=== PATIENT | female | born 1975 | race Caucasian/White ===

== ENCOUNTER → 2017-11-19 07:22 | Outpatient (CLI) | payer OTHER, SELFPAY ==
--- NOTE | 2017-11-19 07:27 | MRI_ITS ---
STUDY: MRI LEFT KNEE REASON FOR EXAM: Medial knee pain, lateral clicking, symptoms for 6 weeks. TECHNIQUE: Standardized fat and water weighted pulse sequences were obtained in all 3 orthogonal planes. COMPARISON: None. FINDINGS: There is intrasubstance myxoid degeneration of posterior horn of the medial meniscus and a horizontal tear of the inferior articular surface of the posterior horn of the medial meniscus (proton-density sagittal images 12, 13). There is intermediate grade chondromalacia of the medial femoral condyle (T2 sagittal image 8). Normal medial femoral condyle and tibial plateau. There is a mild sprain of the superficial fibers of the medial collateral ligament (T2 coronal images 21, 22). Normal distal semimembranosus, gracilis and semitendinosus tendons. There is a discoid configuration of the lateral meniscus and intrasubstance myxoid degeneration of the posterior horn/body of the lateral meniscus without discrete lateral meniscal tear. Normal hyaline cartilage of the lateral femorotibial compartment. Normal lateral femoral condyle and tibial plateau. Normal proximal tibiofibular articulation. Normal lateral collateral (fibular) ligament. Normal popliteus tendon. Normal biceps femoris tendon. Normal anterior cruciate ligament (ACL). Normal posterior cruciate ligament (PCL). Normal congruent patellofemoral articulation. There is low to intermediate grade chondromalacia of the patellofemoral compartment (T2 sagittal image 14). Normal medial and lateral patellar retinaculum. Normal visualized quadriceps tendon. Normal patellar tendon. Normal Hoffa's fat pad. There is a small joint effusion. There is a thin medial patellar plica. There is mild superficial infrapatellar bursitis (T2 sagittal images 16, 17). There is edema in the anterior subcutis adipose space. The otherwise visualized osseous structures are unremarkable. MRI/Lower Ext Joint Only (Routine) IMPRESSION: Medial meniscal tear. Mild sprain of the medial collateral ligament. 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 Discoid configuration of the lateral meniscus. Small joint effusion. Mild superficial infrapatellar bursitis. Electronically Signed: Rodger Mederos MD at 9:03 EDT Tel , Service support ,
== END ==
PROVIDERS: Family Provider Family Medicine; PCP Family Medicine; Visit Provider Chiropractor
DX: S83.412A Sprain of medial collateral ligament of left knee, initial encounter (principal)
CPT/HCPCS: 73721

== ENCOUNTER 2017-12-25 05:36 | Day surgery (SDC) | payer OTHER, SELFPAY ==
--- NOTE | 2017-12-17 08:27 | PCM.HP.BLA ---
History and Physical DATE OF SURGERY: 12/25/2017 SCHEDULED PROCEDURE: Left knee arthroscopy, partial medial meniscectomy and chondroplasty HISTORY OF PRESENT ILLNESS: This is a 42-year-old female who has had ongoing pain in the left knee for the past 2-3 months. Patient states in September 2017 she slipped on a wet ground injuring her left knee. Patient now complains of popping sensation in the left knee. She has increased pain with walking and going up and down stairs. Activities of daily living are becoming more difficult due to the pain. Pain is over the medial aspect of the joint. Patient has undergone a right knee arthroscopy with medial meniscectomy on December 12, [address] Jack Small. Patient denies previous left knee pain prior to injury. She did undergo an MRI which did reveal a meniscus tear. After discussion with Dr. Jack Small, the patient would like proceed with a left knee arthroscopy with partial medial meniscectomy and chondroplasty. Patient currently denies any chest pain, shortness of breath, fevers chills, recent infections. REVIEW OF SYSTEMS: ROS: Const: Denies anorexia, anxiety, change in appetite, fever, hard of hearing, vision problems and weight change. CV: Denies chest pain, heart murmur, irregular heartbeat and peripheral vascular disease. Resp: Denies asthma, cough, pneumonia, sleep apnea, SOB, tuberculosis and wheezing. GI: Reports constipation, but denies diarrhea, difficulty swallowing, heartburn, nausea, bloody stools and vomiting. : Urinary: reports incontinence at times Musculo: Reports leg swelling, limp(at times), trouble walking(at times) and weakness Skin: Denies Raynaud's, history of shingles and tattoo. Neuro: Denies ambulatory dysfunction, dizziness, numbness/tingling and tremor. Psych: Reports depression, but denies anxiety, insomnia, mental illness and stress. Amol/Lymph: Reports anemia, but denies bleeding/bruising tendency and past transfusion. Reviewed and updated. PAST MEDICAL HISTORY: Advance Care Plan: Other Directive, LIVING WILL Effective Date: 10/23/2016 Other Directive, POA Effective Date: 11/30/2017 PMH: Medical Problems: Ulcers - past Accidents: Fracture - right ankle 1992 Sports Related Injury - shoulder- surgery on the labrum - 1999 Surgical Hx: Tonsillectomy - (1983) Section - (2005) Right Shoulder - (1999) Gallbladder - (2009) RT Knee Arthroscopy - (12/12/2016) [email or web address] Anesthesia Complications: Nausea, Vomiting Assistive Devices: Glasses - contacts Reviewed and updated. 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 Personal Habits: Cigarette Use: Never.Alcohol: Denies use.Drug Use: Denies Use.Enjoy Exercising: Exercises 1-3 X/Week. Reviewed, no changes. VITALS: Ht: 63 Wt: 268lb Wt k.565 BMI: 47.5 BP: 113/78 Pulse: 77 Resp: 20 T: 98.0 T: 36.7C ALLERGIES: No Known Drug Allergy MEDICATIONS: [place] 5-325 mg 1-2 by mouth every 6 hour as needed pain, Multivitamins 1 PO qdAY, Iron (Ferrous Sulfate) 142 (45 Fe) MG one PO daily PRE-OP EXAM: General appearance:NORMAL Other: Eyes: Conjunctivae and lids: NORMAL Pupils: ERR Ears, Nose, Mouth, and Throat: NORMAL Other: Inspection of lips, teeth and gums: NORMAL Other: Neck: Examination of neck: no masses noted. Respiratory: Assessment of respiratory effort: NORMAL Other: Auscultation of lungs: clear to auscultation no wheezes, rhonchi or rales. Cardiovascular: Auscultation of heart: regular rate and rhythm, no murmurs, gallops or rubs. Exam of carotid arteries: NORMAL Other: Gastrointestinal: Exam of abdomen: soft, nontender, nondistended bowel sounds present. PHYSICAL EXAMINATION: Patient walks with a limping gait. Left knee is cool to touch without erythema. She does have mild effusion. There is tenderness to palpation over the medial joint line. No tenderness to palpation over the lateral joint line. Patient does have full range of motion of the left knee with pain on end range of flexion. Patient has a positive Satnam's examination on the left which reproduces her pain. Sensations intact to light touch. Neurovascularly intact. IMAGING STUDIES: 1. X-rays of the left knee reveal mild medial joint space narrowing with overall healthy-appearing knee. No acute findings for fracture. 2. MRI of the left knee does show a posterior horn medial meniscus tear with medial and patellofemoral compartment chondromalacia. IMPRESSION: 1. Left knee posterior medial meniscus tear with chondromalacia of the patellofemoral and medial compartment 2. Right knee osteoarthritis 3. Gastroesophageal reflux PLAN: Dr. Small did discuss and review with the patient all treatment options including surgical versus nonsurgical options. Patient does wish to proceed with the above-stated procedure. Potential risks, benefits, and complications of the procedure were discussed in detail including but not limited to , infection, nerve and blood vessel damage, persistent pain, numbness, tingling, paresthesias, blood clot, pulmonary embolism, and requirement for possible further surgery. The patient expressed full understanding and has no further questions for the doctor. Patient does agree to proceed with the above-stated procedure and has signed the surgery consent form. ___ I have re-examined the patient. There are no clinical changes since date of exam. ___ See progress notes for changes. ___ Dictated on admission Date: Time: Signature:
[2017-12-25] VITALS (10 sets, daily range): BP systolic 109–148; BP diastolic 76–107; PULSE 66–86; RESP 16–18; TEMP 35.9–36.8; O2SAT 93–99; BMI 47.6
[2017-12-25 05:58] LABS: Internal QC Validated? YES +Cl - CLEAR BKGD; Pregnancy, Urine Negative Negative
--- NOTE | 2017-12-25 06:54 | OP.PCM_ITS ---
Report of Operation Date of Procedure: 12/25/17 Pre-Operative Diagnosis: 1. Left knee medial meniscus tear. 2. Left knee chondromalacia. 3. Left knee discoid lateral meniscus, with posterior tearing Post-Operative Diagnosis: 1. Left knee medial plica. 2. Left knee chondromalacia. 3. Left knee discoid lateral meniscus, with posterior tearing Surgery/Procedure Performed:: 1. Left knee arthroscopic medial plica resection. 2. Left knee arthroscopic medial and patellofemoral chondroplasty. 3. 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 Patient was brought back to the operating room where they were transferred to the bed. Anesthesia assumed control of the C-spine airway and administered anesthetic. All bony prominences were identified and well-padded and the R leg was placed in the arthroscopic leg cardona. The contralateral leg was then draped over the bed and well-padded. There was padding underneath both sciatic nerves. The foot of the bed was then dropped and the R leg was prepped in a sterile fashion. The surgeon then scrubbed. Upon reentering the room, the operative leg was draped in a standard orthopedic fashion. A timeout was called, everyone agreed upon the side, the site, the procedure to be performed, patient's identity and antibiotics given. Incisions were marked out for the medial and lateral infrapatellar portals. Esmarch bandage was then used to exsanguinate the leg and tourniquet was placed at 250 mmHg. At this time, the lateral portal incision was made in a vertical fashion. The trocar was placed into the joint. The camera was then placed and the patellofemoral joint was visualized. The patella did appear to have grade 2 -3 chondral changes. The trochlea appeared to have grade 4 chondral changes. We then directed our attention medially where there was a plica, we then directed our attention to the medial gutter where there was no foreign body. Then directed our attention to the medial joint compartment. There were large full-thickness grade 4 chondral changes on the medial distal femur, grade 3 chondral changes on the medial tibial plateau. The medial meniscus had no visible tear. The medial portal was then placed under direct visualization using a spinal needle an 11 blade scalpel. Once this was done a probe was placed in the joint and the meniscus was probed finding no definitive tear at this time based on the chondral damage and plica as well as probing we decided not to proceed with a meniscectomy as one cannot be found. The shaver was then placed in the joint and the areas of severe chondromalacia were cleaned up with the shaver. We then directed our attention to the patellofemoral joint where the medial plica was removed and the patellofemoral joint was shaved using the shaver removing all areas of free cartilage flaps. Once we felt medial medial and patellofemoral were adequately debrided. Attention was then turned towards the notch where the anterior cruciate ligament was intact. PCL was visualized and appeared intact. Attention was then directed towards the lateral compartment where the lateral distal femur had minimal chondral changes, the lateral proximal tibia was not visible due to a large discoid meniscus laterally. The lateral meniscus had small posterior tear in the discoid region. The shaver was placed into the joint and biters were used to sequentially debride the lateral meniscus saucerizing it. We then directed our attention to the lateral gutter, which was visualized and no free bodies were noted. At this time the wound was copiously irrigated out with normal saline with epinephrine. The wound was closed with 4-0 nylon and 0.5% Marcaine and epinephrine were injected for local anesthetic. Xeroform was placed over the incision. Sterile dressing was placed. Compressive dressing was placed. Tourniquet was let down. For that there was then placed up. Patient was awakened by anesthesia patient was transferred to the PACU for recovery in stable condition. Postoperative plan: Patient will be made weight-bear as tolerated. Return to activities as tolerated. He will come to the office in 2 weeks for postoperative wound check and suture removal. If he is doing well that time he can follow-up as needed. - Complications NONE - Admit VTE Documentation VTE Present on Admission: No VTE Mechan Device Prophylaxis: SCD's VTE Pharm Prophylaxis ordered?: Yes
[2017-12-25] MEDS: Cefazolin 2 GM in 0.9% Normal Saline 100 ML IV (07:07)
[2017-12-25] MEDS: Bupiv/Epi 0.5% Mpf 30 ML Vial (08:02)
[2017-12-25] MEDS: Ketorolac 30 MG/ML Syringe IV (08:51)
[2017-12-25] MEDS: proMETHazine 25 MG/ML Syringe IV (08:54)
== END 2017-12-25 11:46 | disposition home or self-care (01) ==
LOC: SDC 05:38 → AC 05:39
PROVIDERS: Anesthesiology; Family Provider Family Medicine; PCP Family Medicine; Visit Provider Specialist
PROC: (CPT 29870; principal; 2017-12-25 06:55)
DX: M94.262 Chondromalacia, left knee (principal); K21.9 Gastro-esophageal reflux disease without esophagitis; M17.11 Unilateral primary osteoarthritis, right knee; M23.222 Derangement of posterior horn of medial meniscus due to old tear or injury, left knee; M67.52 Plica syndrome, left knee; D64.9 Anemia, unspecified
CPT/HCPCS: 01400; 27347; 29875; 81025; J7120; J2405

== ENCOUNTER → 2018-01-10 15:37 | Outpatient (CLI) | payer OTHER, SELFPAY | PROVIDERS: Family Provider Family Medicine; PCP Family Medicine; Visit Provider Specialist | DX: M79.605 Pain in left leg (principal) | CPT/HCPCS: 93971 ==

== ENCOUNTER → 2018-12-03 12:17 | Outpatient (CLI) | payer OTHER, SELFPAY ==
--- NOTE | 2018-12-03 13:00 | MRI_ITS ---
STUDY: MRI RIGHT KNEE REASON FOR EXAM: Female, 43 years old. Right medial knee pain. Status post fall. Previous surgery. TECHNIQUE: Standardized fat and water weighted pulse sequences were obtained in all 3 orthogonal planes. COMPARISON: September 11, 2016. FINDINGS: Grade 3 cartilage loss at the patellar apex. Remainder of the patellofemoral articular cartilage preserved. Lateral compartment articular cartilage preserved. Medial compartment grade 4 cartilage loss. No acute fracture, dislocation or osseous destruction. Mild reactive bone marrow edema/contusion at the medial compartment. Lateral meniscal degeneration without discrete tear. Medial meniscus body/posterior horn free edge tear with marked truncation of the medial meniscal body (sagittal images 16 through 19 series 5 and coronal image 13 series 7). Medial meniscal extrusion. Small volume joint effusion. Slightly thickened medial patellofemoral plica (axial image 14 series 3). No popliteal cyst. Mild anterior soft tissue swelling. Small varicose veins. Normal medial collateral ligamentous complex (MCL). Normal distal semimembranosus, gracilis and semitendinosus tendons. Normal proximal tibiofibular articulation. Normal lateral collateral (fibular) ligament. Normal popliteus tendon. Normal biceps femoris tendon. Normal anterior cruciate ligament (ACL). Normal posterior cruciate ligament (PCL). Normal medial and lateral patellar retinaculum. Normal quadriceps tendon. Normal patellar tendon. Scarring at Hoffa's fat pad. MRI/Lower Ext Joint Only (Routine) IMPRESSION: Partial medial meniscectomy with new extensive free edge fraying/meniscal body truncation Lateral meniscal degeneration without tear Medial compartment severe cartilage loss with reactive bone marrow edema/contusion Patellar apex moderate/severe cartilage loss Small-volume joint effusion, slightly thickened MPF plica and mild anterior soft tissue swelling Electronically Signed: Neri Lozoya DO at 14:58 EDT Tel , Service support ,
== END ==
PROVIDERS: Family Provider Family Medicine; PCP Family Medicine; Referring Provider Chiropractor; Visit Provider Chiropractor
DX: S83.411A Sprain of medial collateral ligament of right knee, initial encounter (principal)
CPT/HCPCS: 73721

== ENCOUNTER → 2022-09-08 | Outpatient (CLI) | payer OTHER, SELFPAY ==
--- NOTE | 2022-09-08 09:40 | EMB_PTH ---
PATIENT: BJ MÉNDEZ LOC: [facility] U#:[id number] AGE/SX: 46/F ROOM: RE09/08/[address]: Dr. Monique Evans MD : [id number] BED: DIS: 09/08/2022 SPEC #: [id number] RECD: 09/08/22 12:19 STATUS: DANIEL REEstelle #: [id number] OLIVA: 09/08/22 09:[address]: Monique Evans DEPT: SURGICAL PATHOLOGY RECD BY: Cata Reyes ENTERED: 09/08/22 12:57 SP TYPE: ENDOM BX/C ELISEO DR: Dr. Gokul Kruger MD Tissues: Endometrium, NOS Procedures: Surgery Specimen Level IV HEADER OPERATION: Endometrial biopsy PRE-OP DIAGNOSIS: Abnormal uterine bleeding TISSUE SUBMITTED: Endometrial tissue MICROSCOPIC DIAGNOSIS Endometrium, biopsy: Mildly disordered, weakly proliferative endometrium. AM:mickey 09/11/2022 MICROSCOPIC DESCRIPTION Slides are reviewed. GROSS DESCRIPTION Received is one container labeled with the patient's name and not further designated. The specimen consists of multiple irregular fragments of pink soft tissue mixed with mucoid tissue that in aggregate measure 2.5 x 0.5 x 0.1 cm. The specimen is totally submitted in one cassette. / SJ:mickey 09/08/2022 TC:5 CPT: 09731
== END | disposition home or self-care (01) ==
PROVIDERS: PCP Family Medicine; Visit Provider Obstetrics & Gynecology
DX: N93.9 Abnormal uterine and vaginal bleeding, unspecified (principal)
CPT/HCPCS: 88305

== ENCOUNTER → 2022-11-10 | Outpatient (CLI) | payer OTHER, SELFPAY ==
--- NOTE | 2022-11-10 09:10 | EKG12_ITS ---
Test Reason : OBESITY Blood Pressure : / mmHG Vent. Rate : 085 BPM Atrial Rate : 085 BPM P-R Int : 140 ms QRS Dur : 076 ms QT Int : 366 ms P-R-T Axes : 038 025 034 degrees QTc Int : 435 ms Normal sinus rhythm Normal ECG Confirmed by WADE GUEVARA, KEVIN ([id number]), index editor MIKE SANCHEZ ([id number]) on 11/13/2022 12:59:15 PM Referred By: EVETTE Confirmed By:KEVIN OLVERA MD
[2022-11-10 10:55] LABS: ALB/GLOB Ratio 0.8 RATIO (0.9-2.4); AST(SGOT) 16 U/L (15-37); Alanine Aminotransfer ALT/SGPT 27 U/L (13-56); Albumin, Serum 3.4 g/dL (3.2-5.0); Alkaline Phosphatase 91 U/L (45-117); Anion Gap 4 (5-15); BUN 10 mg/dL (7-18); BUN/Creat Ratio 14.1 RATIO (10-20); Calcium,Total 8.6 mg/dL (8.5-10.1); Chloride 107 mmol/L (98-107); Cholesterol 270 mg/dL (200); Creatinine, Serum 0.71 mg/dL (0.55-1.02); EST Glomerular Filtration Rate 94 mL/min (>60); Est Glom Filt Rate - Afr Amer 114 mL/min (>60); Glucose 87 mg/dL (74-106); High Density Lipoprotein 73 mg/dL; Potassium 4.1 mmol/L (3.5-5.1); Protein, Total 7.4 g/dL (6.4-8.2); Sodium Level 139 mmol/L (136-145); Thyroid Stim Hormone (TSH) 1.97 uIU/mL (0.358-3.74); Triglycerides 69 mg/dL; Very Low Density Lipoprotein 14 mg/dL (5-40)
[2022-11-10 11:14] LABS: Absolute Lymphocyte Count 1.27 X10^3/uL (0.83-4.51); Absolute Neutrophil Count 4.3 X10^3/uL (2.0-7.7); Basophil# 0.05 X10^3/uL; Basophil% 0.8 % (0-1); Eosinophil# 0.17 X10^3/uL; Eosinophils% 2.7 % (0-5); Hematocrit 42.4 % (37-47); Hemoglobin 13.7 g/dL (12.0-15.0); Lymphocyte # 1.27 X10^3/ul (0.83-4.51); Lymphocyte % 19.9 % (19-41); Mean Corp Hgb Conc 32.3 g/dL (32-36); Mean Corpuscular Hgb 29.7 pg (27.0-32.0); Mean Platelet Vol. 10.5 fl (6.2-12.0); Monocyte# 0.53 X10^3/uL; Monocyte% 8.3 % (0-10); NRBC Flagged by Analyzer 0 % (0-5); Neutrophil # 4.34 X10^3/uL (2.7-7.7); Neutrophil % 68.1 % (47-70); Platelet Count 342 K/mm3 (150-450); RBC Distribution Width CV 12.7 % (11.6-14.6); Red Blood Count 4.61 M/mm3 (4.2-5.4); White Blood Count 6.4 K/mm3 (4.4-11.0)
[2022-11-10 12:39] LABS: Hemoglobin A1c 5.3 % (3.8-5.6)
[2022-11-14 15:07] LABS: Vitamin D 1,25-Dihydroxy 33.4 pg/mL (24.8-81.5)
== END | disposition home or self-care (01) ==
PROVIDERS: PCP Family Medicine; Visit Provider Obstetrics & Gynecology
DX: E66.8 Other obesity (principal); Z68.43 Body mass index [BMI] 50.0-59.9, adult
CPT/HCPCS: 36415; 80053; 80061; 82652; 83036; 84443; 85025; 93005

== ENCOUNTER 2022-11-27 09:58 | Outpatient (RCR) | payer OTHER, SELFPAY | END 2022-12-11 23:59 | LOC: NS 09:58 | PROVIDERS: PCP Family Medicine; Referring Provider Obstetrics & Gynecology; Visit Provider Obstetrics & Gynecology | DX: Z71.3 Dietary counseling and surveillance (principal); E66.01 Morbid (severe) obesity due to excess calories; E66.8 Other obesity; Z68.43 Body mass index [BMI] 50.0-59.9, adult | CPT/HCPCS: 97802 ==

== ENCOUNTER → 2022-12-26 | Outpatient (CLI) | payer OTHER, SELFPAY | END | disposition home or self-care (01) | PROVIDERS: PCP Family Medicine; Referring Provider Nurse Practitioner Acute Care; Visit Provider Nurse Practitioner Acute Care | DX: G47.10 Hypersomnia, unspecified (principal) | CPT/HCPCS: 95806 ==

== ENCOUNTER 2023-01-10 16:00 | Outpatient (RCR) | payer OTHER, SELFPAY | END 2023-01-11 23:59 | LOC: NS 16:00 | PROVIDERS: PCP Family Medicine; Referring Provider Obstetrics & Gynecology; Visit Provider Obstetrics & Gynecology | DX: Z71.3 Dietary counseling and surveillance (principal); E66.01 Morbid (severe) obesity due to excess calories; Z68.43 Body mass index [BMI] 50.0-59.9, adult; E66.8 Other obesity | CPT/HCPCS: 97803 ==

== ENCOUNTER 2023-02-07 15:28 | Outpatient (RCR) | payer OTHER, SELFPAY | END 2023-02-10 23:59 | LOC: NS 15:28 | PROVIDERS: PCP Family Medicine; Referring Provider Obstetrics & Gynecology; Visit Provider Obstetrics & Gynecology | DX: Z71.3 Dietary counseling and surveillance (principal); E66.01 Morbid (severe) obesity due to excess calories; Z68.43 Body mass index [BMI] 50.0-59.9, adult | CPT/HCPCS: 97803 ==

== ENCOUNTER → 2023-07-30 | Outpatient (CLI) | payer OTHER, SELFPAY ==
[2023-07-30 11:24] LABS: ALB/GLOB Ratio 0.9 RATIO (0.9-2.4); AST(SGOT) 17 U/L (15-37); Alanine Aminotransfer ALT/SGPT 22 U/L (13-56); Albumin, Serum 3.4 g/dL (3.2-5.0); Alkaline Phosphatase 97 U/L (45-117); Anion Gap 4 (5-15); BUN 17 mg/dL (7-18); BUN/Creat Ratio 22.3 RATIO (10-20); Calcium,Total 8.7 mg/dL (8.5-10.1); Chloride 111 mmol/L (98-107); Cholesterol 172 mg/dL (200); Creatinine, Serum 0.76 mg/dL (0.55-1.02); EST Glomerular Filtration Rate 86 mL/min (>60); Est Glom Filt Rate - Afr Amer 105 mL/min (>60); Globulin 3.6 g/dL (2.2-4.2); Glucose 93 mg/dL (74-106); High Density Lipoprotein 62 mg/dL; Potassium 4.1 mmol/L (3.5-5.1); Sodium Level 141 mmol/L (136-145); Triglycerides 72 mg/dL; Very Low Density Lipoprotein 14 mg/dL (5-40)
== END | disposition home or self-care (01) ==
LOC: MFPLAB 08:04
PROVIDERS: PCP Family Medicine; Visit Provider Family Medicine
DX: E78.5 Hyperlipidemia, unspecified (principal)
CPT/HCPCS: 36415; 80053; 80061

== ENCOUNTER → 2024-02-04 | Outpatient (CLI) | payer OTHER, SELFPAY ==
--- NOTE | 2024-02-04 07:02 | EKG12_ITS ---
Test Reason : TACHYCARDIA Blood Pressure : / mmHG Vent. Rate : 085 BPM Atrial Rate : 085 BPM P-R Int : 140 ms QRS Dur : 076 ms QT Int : 366 ms P-R-T Axes : 038 032 041 degrees QTc Int : 435 ms Normal sinus rhythm Normal ECG Confirmed by Laci Thomson ([id number]), makeup editor GLORY CHAVEZ ([id number]) on 02/04/2024 1:24:47 PM Referred By: Loreta Salazar Confirmed By:Laci Thomson
== END | disposition home or self-care (01) ==
PROVIDERS: PCP Family Medicine; Referring Provider Nurse Practitioner Family; Visit Provider Nurse Practitioner Family
DX: R00.0 Tachycardia, unspecified (principal)
CPT/HCPCS: 93005

== ENCOUNTER → 2024-08-13 | Outpatient (CLI) | payer OTHER, SELFPAY | END | disposition home or self-care (01) | PROVIDERS: PCP Family Medicine; Referring Provider Internal Medicine Cardiovascular Disease; Visit Provider Internal Medicine Cardiovascular Disease | DX: R00.0 Tachycardia, unspecified (principal) | CPT/HCPCS: 36415; 84443 ==

== ENCOUNTER → 2024-09-15 | Outpatient (CLI) | payer OTHER, SELFPAY ==
--- NOTE | 2024-09-15 06:23 | ECHOD_ITS ---
Reason For Study Reason For Study: DYSPNEA Procedure This was a 2D Doppler, Color Flow transthoracic echocardiogram. Exam performed in department. Left Ventricle Normal LV size. Mild concentric left ventricular hypertrophy. The LV systolic function is normal. EF is 65 %. Stage 1 diastolic dysfunction. Right Ventricle Normal right ventricle. Atria The left atrium is mildly enlarged. Normal right atrium. Mitral Valve Trivial mitral valve insufficiency. Tricuspid Valve Trivial tricuspid valve insufficiency. Unable to estimate RV systolic pressure due to insufficient tricuspid regurgitant envelope. Aortic Valve Trisinus/trileaflet aortic valve. Pulmonic Valve The pulmonic valve is not well visualized. Great Vessels Normal sized aortic root. Pericardium/Pleural No pericardial effusion. MMode/2D Measurements & Calculations LVIDd: 3.9 cm IVSd: 1.3 cm LVOT diam: 2.1 cm LVIDs: 3.1 cm LVPWd: 1.5 cm LVOT area: 3.3 cm2 FS: 22.2 % LAV(MOD-bp): 59.0 ml LVAd ap4: 29.0 cm2 SV(MOD-sp4): 56.0 ml LAV(MOD-bp) Indexed: 26.6 ml/m2 LVLd ap4: 7.5 cm SI(MOD-sp4): 25.2 ml/m2 LAV(MOD-sp2): 58.2 ml EDV(MOD-sp4): 93.1 ml LAV(MOD-sp4): 51.5 ml EDV(sp4-el): 94.7 ml LVAs ap4: 16.3 cm2 LVLs ap4: 5.9 cm ESV(MOD-sp4): 37.2 ml ESV(sp4-el): 38.5 ml EF(MOD-sp4): 60.1 % EF(sp4-el): 59.4 % SV(sp4-el): 56.2 ml LA A4 area: 17.6 cm2 LA dimension(2D): 4.4 cm RA A4 area: 13.6 cm2 Time Measurements MV dec time: 0.09 sec Doppler Measurements & Calculations MV E max carlos: 86.4 cm/sec Lat Peak E' Carlos: 8.6 cm/sec Med Peak E' Carlos: 7.7 cm/sec MV A max carlos: 113.9 cm/sec E/E' lat: 10.0 E/E' med: 11.2 MV E/A: 0.76 MV V2 max: 120.6 cm/sec Ao V2 max: 157.8 cm/sec MV max P.8 mmHg MV dec slope: 947.8 cm/sec2 Ao max P.0 mmHg MV V2 mean: 84.9 cm/sec Ao V2 mean: 111.7 cm/sec MV mean P.2 mmHg Ao mean P.6 mmHg MV V2 VTI: 27.1 cm Ao V2 VTI: 32.0 cm AV (velocity ratio): 0.92 MVA(VTI): 3.6 cm2 SO(I,D): 3.0 cm2 SO(V,D): 2.8 cm2 LV V1 max: 135.5 cm/sec SV(LVOT): 97.1 ml PA V2 max: 100.5 cm/sec LV V1 max P.4 mmHg PA V2 mean: 76.3 cm/sec LV V1 mean P.6 mmHg LV V1 mean: 102.4 cm/sec LV V1 VTI: 29.3 cm ECHO/Echo Complete Interpretation Summary Mild concentric left ventricular hypertrophy. The LV systolic function is normal. EF is 65 %. Stage 1 diastolic dysfunction. The left atrium is mildly enlarged. Ordering Physician: Sienna James Referring Physician: Jose Echeverria Performed By: Aisha Piña RCS
--- NOTE | 2024-09-15 09:16 | STRESSREP_ITS ---
Stress Test Report Date: 09/15/2024 Procedure: Exercise tolerance test/imaging study Indications: Tachycardia Consent: Per the patient Procedure: The patient exercised on a Milind protocol for 6 minutes and 27 seconds achieving a peak heart rate of 117 bpm (103% predicted maximal heart rate) with a peak blood pressure 172/84 mmHg and a peak MET capacity of 8.3 METs. The baseline ECG demonstrated normal sinus rhythm. The peak exercise ECG demonstrated sinus tachycardia with no ischemic changes. There were no cardiac dysrhythmias pretest, during exercise, or recovery. The functional capacity was considered average. There was no complaint of chest discomfort during exercise or recovery. The examination was discontinued secondary to target heart rate being achieved and dyspnea. The patient was injected with 14.6 mCi of technetium 99m Cardiolite and subsequently rest SPECT Cardiolite nuclear imaging was obtained in the horizontal long, vertical long, and short axis views. Post-exercise, the patient was injected with 44.7 mCi of technetium 99m Cardiolite and subsequently stress SPECT Cardiolite nuclear imaging was obtained in the horizontal long, vertical long, and short axis views. A gated Cardiolite study at peak stress was obtained. Rest and stress SPECT Cardiolite nuclear imaging status post realignment, normalization, and attenuation correction, demonstrates the appearance of relative uniform tracer uptake and myocardial perfusion appearing within normal limits. There is end systolic thickening and brightening. The gated Cardiolite study demonstrates myocardial thickening and inward wall motion. The reported LVEF is 72%. Impression: 1. Technically adequate (percent predicted maximal heart rate greater than 85%) exercise tolerance test 2. Peak exercise ECG with no ischemic changes 3. There were no cardiac dysrhythmias pretest, during exercise, or recovery 4. Rest and stress SPECT Cardiolite nuclear imaging demonstrate relative uniform tracer uptake and myocardial perfusion appearing within normal limits. 5. The gated Cardiolite study reports an LVEF of 72%. This note was generated with CartoDBation software. It may contain incorrect words, spelling, and punctuation that were not noted in checking the note before signing.
== END | disposition home or self-care (01) ==
LOC: CVS 06:21
PROVIDERS: PCP Family Medicine; Referring Provider Family Medicine; Visit Provider Internal Medicine Cardiovascular Disease
DX: R00.0 Tachycardia, unspecified (principal); R06.09 Other forms of dyspnea
CPT/HCPCS: 78452; 93017; 93306; A9500; A4216

== ENCOUNTER → 2024-10-17 | Outpatient (CLI) | payer OTHER, SELFPAY ==
[2024-10-17 18:10] LABS: Anion Gap 10 (5-15); BUN 17 mg/dL (4-19); BUN/Creat Ratio 24.3 RATIO (10-20); Carbon Dioxide 23.8 mmol/L (21.0-32.0); Chloride 105 mmol/L (98-108); Creatinine, Serum 0.68 mg/dL (0.70-1.20); EST Glomerular Filtration Rate 108 (>60); Glucose 81 mg/dL (70-99); Potassium 3.9 mmol/L (3.3-5.1); Sodium Level 139 mmol/L (133-145)
[2024-10-17 18:39] LABS: Hemoglobin A1c 5.5 % (<=5.6)
== END | disposition home or self-care (01) ==
LOC: MFPLAB 14:04
PROVIDERS: PCP Family Medicine; Referring Provider Family Medicine; Visit Provider Family Medicine
DX: R63.1 Polydipsia (principal)
CPT/HCPCS: 36415; 80048; 83036

== ENCOUNTER → 2024-10-27 | Outpatient (CLI) | payer OTHER, SELFPAY | END | disposition home or self-care (01) | LOC: PSN 07:24 | PROVIDERS: PCP Family Medicine; Referring Provider Nurse Practitioner Family; Visit Provider Nurse Practitioner Family | DX: I48.91 Unspecified atrial fibrillation (principal); R00.0 Tachycardia, unspecified; R00.1 Bradycardia, unspecified; R42 Dizziness and giddiness | CPT/HCPCS: 93225; 93226 ==

== ENCOUNTER 2025-03-06 09:09 | Emergency (ER) | payer OTHER, SELFPAY ==
[2025-03-06 09:09] VITALS: BP 142/98; PULSE 104; RESP 18; TEMP 36.8; O2SAT 98; BMI 46.5
--- NOTE | 2025-03-06 09:35 | EKG12_ITS ---
Test Reason : CP Blood Pressure : */* mmHG Vent. Rate : 92 BPM Atrial Rate : 92 BPM P-R Int : 138 ms QRS Dur : 76 ms QT Int : 354 ms P-R-T Axes : 46 21 29 degrees QTcB Int : 437 ms Normal sinus rhythm Normal ECG Confirmed by JULIANN RAZO ([id number]), news copy editor MIKE SANCHEZ ([id number]) on 03/09/2025 6:56:25 AM Referred By: ER/DH Confirmed By: JULIANN RAZO
--- NOTE | 2025-03-06 09:36 | ED.VIS.CHEST ---
HPI History of Present Illness Chief Complaint: Chest Pain Informant: patient and spouse/S.O. Narrative Narrative: 49-year-old female presenting to the emergency room with a chief complaint of chest pressure and sensation of heart racing. Patient states that she went to the chiropractor around 615 this morning. She had electric stimulation and manipulation. States that around [address] her [address] into work when she got a chest pressure-like sensation that radiate up towards her jaw and a sensation that her heart was racing. 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 BP systolic around 140/100 and HR of 110. She states that she felt that it was harder to take a breath. Her symptoms have improved but still feels like her breathing is a bit labored. She denies any new medications. She states that she is not treated for hypertension. She does not monitor her blood pressure or heart rate at home. She notes over the past week her legs have been a little bit more swollen than normal and she feels that she is urinating more frequently than normal. She states she does not have a history of sleep apnea. She states that she had a stress test in the spring that she passed. [facility] Medical History Diastolic blood pressure 90 mm Hg or higher BMI 45.0-49.9, adult Hyperlipemia Tachycardia Home Medications ?Medication ?Instructions ?Recorded ?Last Taken ?Type fluoxetine 40 mg capsule 40 mg PO QDAY 08/13/24 Unknown History phentermine 37.5 mg tablet 18.75 mg (1/2 x 37.5 mg) PO QDAY 02/27/25 Unknown Rx (Adipex-P) #16 tabs Allergy/AdvReac Type Severity Reaction Status Date / Time No Known Allergies Allergy Verified 03/06/25 09:09 Family History Grandmother , age 31 Cancer Surgical History S/P S/P knee surgery S/P tonsillectomy S/P cholecystectomy S/P shoulder surgery Social History number of children: 3 current occupational status: employed 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[employer] Smoking Status: Never smoker alcohol intake: never substance use type: does not use seatbelt use: always do you feel safe at home: Yes additional social history: - [employer]- [employer] ED Constitutional Constitutional ED: Denies chills, fever(s) or weight loss Eyes Eyes: Denies change in vision or diplopia ENT ENT ED: Denies ear pain, rhinorrhea or sore throat Cardiovascular Cardiovascular: Reports chest pain and racing heartbeat; Denies orthopnea or palpitations Respiratory/Chest Respiratory/Chest: Reports dyspnea; Denies cough or orthopnea Gastrointestinal Gastrointestinal: Denies abdominal pain, diarrhea, nausea or vomiting Genitourinary Genitourinary ED: Reports urinary frequency; Denies dysuria or hematuria Musculoskeletal Musculoskeletal: Reports other Details: Mild leg swelling ; Denies arthralgias or myalgias Integumentary Denies abscess or rash Neurologic Neurologic: Denies headache(s) or weakness Psychiatric Psychiatric: Denies anxiety, depression, suicidal ideation or suicidal thoughts Endocrine Endocrinology: Denies polydipsia, polyphagia or polyuria Allergic/Immunologic Allergic/Immunologic ED: Denies mouth swelling, tongue swelling or urticaria EXAM Physical Exam Const Vital Signs: 03/06/25 09:09 03/06/25 10:09 03/06/25 11:00 Temperature 98.3 F Temperature Source Oral Pulse Rate 104 H 87 86 Respiratory Rate 18 18 16 Blood Pressure 142/98 H 151/78 H 148/74 H Blood Pressure Mean 112 102 98 Pulse Ox 98 98 99 Oxygen Delivery Method Room Air 03/06/25 12:00 Temperature Temperature Source Pulse Rate 80 Respiratory Rate 16 Blood Pressure 140/68 H Blood Pressure Mean 92 Pulse Ox 99 Oxygen Delivery Method Positive well nourished and well developed General Appearance ED: well developed and NAD HEENT Reports normocephalic, head/scalp atraumatic and moist mucous membranes Eyes PERRL and EOMs intact bilaterally Neck no lymphadenopathy, supple and no JVD Resp normal respiratory effort and clear to auscultation bilaterally Resp Narrative: breathing appears unlabored Cardio regular rate, regular rhythm and no murmurs GI normal to inspection, nondistended, normoactive bowel sounds and non-tender Palpation: soft Back/Spine no CVA tenderness and normal ROM Extremity normal to inspection General Extremety ED: Negative for edema General Extremity: Negative for edema Neuro oriented x3 and CN's II-XII intact bilaterally Sensorium / Orientation: alert Motor Exam: strength 5/5 throughout Psych mental status grossly normal Mood & Affect: Negative for depressed or tearful Skin no rashes or lesions noted and no wounds MDM MDM MDM Narrative Medical decision making narrative: Differential diagnosis includes but not limited to acute coronary syndrome pulmonary embolism aortic dissection and aneurysm pleural effusion cardiac dysrhythmia electrolyte abnormalities anemia UTI My independent interpretation of the chest x-ray is no acute process. Basic blood work was obtained shows 2 cardiac enzymes that are negative at 7. Hemoglobin 13.3. D-dimer is elevated 0.73 however the CTA of her chest was negative. She had no events on the monitor. A urinalysis was obtained which is also negative for infection. At this point I feel the patient can be discharged home. Have her follow-up with primary care return if worsening or concerns History & Record Review Discussion w/independent historian: Patient and Significant other Additional record(s) reviewed:: Prior outpatient record Lab Data Attestation: I reviewed the patient's lab results. Labs: Laboratory Results - last 24 hr 03/06/25 03/06/25 03/06/25 09:20 10:30 11:25 WBC 7.2 RBC 4.39 Hgb 13.3 Hct 39.8 MCV 90.7 MCH 30.3 MCHC 33.4 RDW Std Deviation 41.6 RDW Coeff of Nya 12.7 Plt Count 304 MPV 10.2 Immature Gran % (Auto) 0.300 Neut % (Auto) 67.3 Lymph % (Auto) 18.7 L [place] % (Auto) 10.8 H Eos % (Auto) 2.2 Baso % (Auto) 0.7 Absolute Neuts (auto) 4.8 Absolute Lymphs (auto) 1.34 Nucleated RBC % 0 D-Dimer Quant (PE/DVT) 0.73 H* Sodium 139 Potassium 3.8 Chloride 104 Carbon Dioxide 25.9 Anion Gap 10 BUN 13 Creatinine 0.62 L Estim Creat Clear Calc 149.48 Est GFR (MDRD) Non-Af 110 BUN/Creatinine Ratio 20.7 H Glucose 86 Calcium 8.9 Magnesium 2.0 Troponin T High Sens 7 Troponin T Hi Sens 2 Hr 7 Urine Color Yellow Urine Clarity Sl. Cloudy Urine pH 6.0 Ur Specific [place] 1.020 Urine Protein 30 H Urine Glucose (UA) Normal Urine Ketones Negative Urine Occult Blood Negative Urine Nitrite Negative Urine Bilirubin Negative Urine Urobilinogen Normal Ur Leukocyte Esterase 25 H Urine RBC 0 SEEN Urine WBC 0-5 SEEN Ur Squamous Epith Cells 5-10 SEEN Urine Bacteria 0 SEEN Urine Mucus 0 SEEN Radiography Diagnostic Testing: Clinical Impression(s) from Imaging Studies Chest X-Ray 03/06/25 09:50 IMPRESSION: Right lower lobe opacity likely subsegmental atelectasis. No definite focal consolidations. Reading Location: [facility] Chest CTA 03/06/25 10:30 IMPRESSION: No evidence of acute chest abnormalities. No evidence of pulmonary embolism. Reading Location: [facility] EKG Initial EKG: Attestation: I personally reviewed and interpreted this EKG as follows: Comments: Normal sinus rhythm ventricular rate of 92 bpm. I do not appreciate concerning ST segments. Discharge Plan Triage Chief Complaint: Chest Pain ED Provider: Isauro Zarco Dx/Rx/DC Orders Prescriptions: No Action fluoxetine 40 mg capsule 40 mg PO QDAY phentermine [Adipex-P] 37.5 mg tablet 18.75 mg PO QDAY Qty: 16 0RF Rx Instructions: BMI 45 Primary Care Provider: Jv Cortes Referrals: Jose Echeverria MD [Med Staff - Active Staff, Family Practice] Print Language: Kinyarwanda
[2025-03-06 09:44] LABS: Hematocrit 39.8 % (37-47); Hemoglobin 13.3 g/dL (12.0-15.0); Immature Granulocytes Count 0.020 X10^3/uL (0.0-0.0); Mean Corp Hgb Conc 33.4 g/dL (32-36); Mean Corpuscular Volume 90.7 fL (81-99); Mean Platelet Vol. 10.2 fl (6.2-12.0); NRBC Flagged by Analyzer 0 % (0-5); Platelet Count 304 K/mm3 (150-450); RBC Distribution Width CV 12.7 % (11.6-14.6); RBC Distribution Width SD 41.6 fl (35.1-43.9); Red Blood Count 4.39 M/mm3 (4.2-5.4); White Blood Count 7.2 K/mm3 (4.4-11.0)
--- NOTE | 2025-03-06 09:50 | RAD_ITS ---
PROCEDURE: CHEST 1 VIEW (PORTABLE) 03/06/2025 REASON FOR EXAM: CHEST PAIN TECHNIQUE: Frontal view of the chest. FINDINGS: Right lower lobe opacity likely subsegmental atelectasis. No definite focal consolidations. No pleural effusion or pneumothorax. Cardiac silhouette is within normal limits. No acute fractures. RAD/Chest 1 View (Portable) IMPRESSION: Right lower lobe opacity likely subsegmental atelectasis. No definite focal co nsolidations. Reading Location: [id number]
[2025-03-06 10:01] LABS: D-Dimer Quantitative (DVT/PE) 0.73 FEU/ug/m (0.27-0.49)
[2025-03-06 10:09] VITALS: BP 151/78; PULSE 87; RESP 18; O2SAT 98
[2025-03-06 10:25] LABS: Anion Gap 10 (5-15); BUN 13 mg/dL (4-19); BUN/Creat Ratio 20.7 RATIO (10-20); Calcium,Total 8.9 mg/dL (7.6-11.0); Carbon Dioxide 25.9 mmol/L (21.0-32.0); Chloride 104 mmol/L (98-108); Estimated Creatinine Clearance 149.48 ml/min (50-250); Glucose 86 mg/dL (70-99); Magnesium 2.0 mg/dL (1.5-2.2); Potassium 3.8 mmol/L (3.3-5.1); Troponin T High Sensitivity 7 ng/L (<=14)
--- NOTE | 2025-03-06 10:30 | CT_ITS ---
PROCEDURE: CTA CHEST W/WO CONTRAST 03/06/2025 REASON FOR EXAM: CHEST PAIN SOB ELEVATED DDIMER TECHNIQUE: Procedure Code: [id number] Modality: CT Procedure: CTA CHEST W/WO CONTRAST Multiplanar Sagittal and Coronal images were obtained. CONTRAST: Isovue 370 VOLUME: 96 mL One or more dose reduction techniques were used (e.g., Automated exposure control, adjustment of the mA and/or kV according to patient size, use of iterative reconstruction technique). RADIATION DOSE SUMMARY: CTDlvol: 15.83 mGy DLP: 517.98 mGycm COMPARISON: None. # of known CTs in the past 12 months: 0. # of known Cardiac Nuclear Medicine Studies in the past 12 months: 0. FINDINGS: Thoracic Aorta: No aneurysm. No dissection. Heart: No cardiomegaly. Pulmonary Vessels: No evidence of pulmonary embolism. Hardware: None. Lymph nodes: No lymphadenopathy. Lungs and Airways: Clear. Pleura: No pleural effusion or pneumothorax. Upper Abdomen: Unremarkable. Bones: No acute bony abnormalities. CT/CTA Chest W/WO Contrast IMPRESSION: No evidence of acute chest abnormalities. No evidence of pulmonary embolism. Reading Location: [facility]
[2025-03-06 10:32] LABS: Mucous, Urine 0 SEEN /hpf (<or=2+); Red Blood Cells-Urine 0 SEEN /hpf (0-5)
[2025-03-06 10:43] LABS: Color, Urine Yellow (Yellow); Glucose, Dipstick Normal (Normal); Ketone-Dipstick Negative (Negative); Leukocyte Esterase-Dipstick 25 /ul (Negative); Nitrite-Dipstick Negative (Negative); Occult Blood-Urine Negative /ul (Negative); Protein-Dipstick 30 mg/dl (Negative); Specific Gravity, Urine 1.020 (1.002-1.030); Urine Bilirubin Dipstick Negative (Negative)
[2025-03-06 10:51] LABS: Squamous Epithelial Cells - UA 5-10 SEEN /hpf (5-10)
[2025-03-06 11:00] VITALS: BP 148/74; PULSE 86; RESP 16; O2SAT 99
[2025-03-06 12:00] VITALS: BP 140/68; PULSE 80; RESP 16; O2SAT 99
[2025-03-06 12:22] LABS: Troponin T High Sens 2 HR 7 ng/L (<=14)
[2025-03-06 12:46] VITALS: BP 126/83; PULSE 82; RESP 16; TEMP 36.6; O2SAT 99
== END 2025-03-06 12:53 | disposition home or self-care (01) ==
PROVIDERS: Emergency Provider Emergency Medicine; PCP Family Medicine; Visit Provider Emergency Medicine
DX: R07.9 Chest pain, unspecified (principal); E78.5 Hyperlipidemia, unspecified; R06.00 Dyspnea, unspecified; R35.0 Frequency of micturition
CPT/HCPCS: 71045; 71275; 80048; 81001; 83735; 84484; 85025; 85379; 93005; 99284; Q9967; A4216

== ENCOUNTER → 2025-03-31 | Outpatient (CLI) | payer OTHER, SELFPAY ==
--- NOTE | 2025-03-31 07:14 | BI_ITS ---
EXAM: SCRN MAMM (CAD)W/BRENT BILAT DATE: 03/31/2025 CLINICAL HISTORY: F, Age 49 y/o , SCREENING TECHNIQUE: Procedure Code: [id number] Modality: MG Procedure: SCRN MAMM (CAD)W/BRENT BILAT COMPARISON: Prior exam(s) dated 04/07/2022 and 03/28/2021. FINDINGS: TISSUE DENSITY: The breasts are almost entirely fatty. Bilateral Breast Mammographic Findings: No significant masses, calcifications or other abnormalities are identified. Benign-appearing round microcalcifications are seen in both breasts. BI/SCRN MAMM (CAD)W/BRENT BILAT IMPRESSION: Benign screening mammogram. OVERALL FINAL ASSESSMENT BI-RADS 2: BENIGN RECOMMENDATION: Routine annual follow-up in 1 Year Additional Recommendation none A letter with findings and recommendations will be mailed to the patient. Reading Location: [id number]
--- OUTSIDE RECORDS SUMMARY | 2025-03-31 07:31 | XMS RPT_ITS | CCD ---
Author Organization [facility] Inform ion Partnership [facility] Care Team Providers Care President Sales And Marketing Name Role Phone Sada Kruger MD Primary Care Provider Dr. Cal Kruger Primary Care Provider [phone] Dr. Cal Kruger Referring Provider Dr. Monique Evans Attending Provider Sada Krugre MD Primary Care Provider Emy CROP PEST CONTROL SPECIALIST, PAKOC Umu Attending Provider [phone] Dr. Cal Kruger Primary Care Provider [phone] Dr. Cal Kruger Referring Provider Dr. Monique Evans Attending Provider Dr. Toney Cason Attending Provider Dr. Monique Evans Referring Provider Dr. Jose Echeverria Primary Care Provider Sada Kruger MD Primary Care Provider Sada Kruger MD Primary Care Provider Dr. Jose Echeverria Primary Care Provider Dr. Jose Echeverria Referring Provider Dr. Monique Evans Attending Provider SADA KRUGER Primary Care SADA Jones Primary Care Sada Jones MD Primary Care Provider Juwan GUEVARA, Dr. Garcia Primary Care Provider Juwan GUEVARA, Dr. Garcia Referring Provider Marie TRACY-CLoreta Attending Provider Jacob GUEVARA, Dr. El Attending Provider Jacob GUEVARA, Dr. El Referring Provider Jacob GUEVARA, Dr. El Other Provider Juwan GUEVARA, Dr. Garcia Primary Care Provider Juwan GUEVARA, Dr. Garcia Referring Provider Marie CROP PEST CONTROL SPECIALIST-CLoreta Attending Provider Juwan GUEVARA, Dr. Garcia Attending Provider Trent CROP PEST CONTROL SPECIALIST-C, Ke Jones Attending Provider Trent CROP PEST CONTROL SPECIALIST-C, Ke Jones Referring Provider Juwan GUEVARA, Dr. Garcia Primary Care Provider Juwan GUEVARA, Dr. Garcia Referring Provider Marie TRACY-CLoreta Attending Provider Dion TRACY-CLucy Attending Provider Isauro Abraham MD Unavailable NONE, NONE Unavailable Unavailable Juwan GUEVARA, Dr. Garcia Primary Care Provider Juwan GUEVARA, Dr. Garcia Referring Provider Jacob GUEVARA, Dr. El Attending Provider Juwan GUEVARA, Dr. Garcia Primary Care Provider Juwan GUEVARA, Dr. Garcia Referring Provider Jacob GUEVARA, Dr. El Attending Provider Cristina GUEVARA, Dr. Amaya Attending Provider Jose Echeverria Referring Unavailable Loreta Salazar Attending Unavailable Jose Echeverria Primary Care Unavailable Jose Echeverria Primary Care Unavailable Jose Echeverria Referring Unavailable Sienna James Attending Unavailable Juwan, Jose Primary Care Unavailable Loreta Salazar Attending Unavailable Echeverria, Jose Referring Unavailable Sebastian, Jv Primary Care Unavailable Loreta Salazar Attending Unavailable Echeverria, Jose Referring Unavailable Ashley CROP PEST CONTROL SPECIALIST, Lucy Attending Unavailable Echeverria, Jose Referring Unavailable Echeverria, Jose Primary Care Unavailable Echeverria, Jose Referring Unavailable BarkLoreta golden Attending Unavailable Echeverria, Jose Primary Care Unavailable Loreta Salazar Attending Unavailable Echeverria, Jose Referring Unavailable Echeverria, Jose Primary Care Unavailable Sebastian, Jv Primary Care Unavailable Echeverria, Jose Referring Unavailable Loreta Salazar Attending Unavailable MarcanthonyMonique Attending Unavailable Echeverria, Jose Primary Care Unavailable Echeverria, Jose Referring Unavailable Jacob, Sienna Attending Unavailable Echeverria, Jose Primary Care Unavailable Roof CROP PEST CONTROL SPECIALIST, Ke Jones Referring Unavailable Echeverria, Jose Referring Unavailable MarcanthMonique deras Attending Unavailable Echeverria, Jose Primary Care Unavailable Echeverria, Jose Primary Care Unavailable Jacob, Sienna Attending Unavailable Jacob, Sienna Consulting Unavailable Echeverria, Jose Referring Unavailable Echeverria, Jose Referring Unavailable Loreta Salazar Attending Unavailable Echeverria, Jose Primary Care Unavailable Echeverria, Jose Referring Unavailable Loreta Salazar Attending Unavailable Echeverria, Jose Primary Care Unavailable Echeverria, Jose Primary Care Unavailable Jacob, Sienna Referring Unavailable Jacob, Sienna Attending Unavailable Echeverria, Jose Primary Care Unavailable Jacob, Sienna Attending Unavailable Echeverria, Jose Referring Unavailable Echeverria, Jose Referring Unavailable Echeverria, Jose Attending Unavailable Echeverria, Jose Primary Care Unavailable Echeverria, Jose Primary Care Unavailable Roof CROP PEST CONTROL SPECIALIST, Ke Jones Referring Unavailable Roof CROP PEST CONTROL SPECIALIST, Ke Jones Attending Unavailable Sebastian, Jv Primary Care Unavailable Isauro Zarco Attending Unavailable Sebastian, Jv Referring Unavailable Sebastian, Jv Attending Unavailable Sebastian, Jv Primary Care Unavailable Allergies Allergy Classification Reported Allergen(s) Allergy Type Date of Onset Reaction(s) Facility (18 sources) Latex; Translations: [LATEX] Propensity to adverse reactions to drug 1 Rash [facility] (12 sources) Penicillins Propensity to adverse reactions 4 Hives [facility] Work Phone: (1 source) LOCAL ANESTHETIC Drug allergy (disorder) 8 [facility] Medications Current Medications Medication Drug Class(es) Dates Sig (Normalized) Sig (Original) amoxicillin 875 mg oral tablet (2 sources) Penicillin-class Antibacterial Start: 02-03-2023 End: 02-10-2023 take 1 tablet by mouth twice daily amoxicillin (AMOXIL) 875 mg tablet Indications: Left acute suppurative otitis media Take 1 tablet by mouth twice daily for 7 days. 14 tablet 0 02/03/2023 02/10/2023 Active End: 08-25-2022 take 1 tablet by mouth once daily amoxicillin (AMOXIL) 875 mg tablet Take 875 mg by mouth once daily. 0 08/25/2022 Active Comment on above: Take 875 mg by mouth once daily. Take 1 tablet by mathew th twice daily for 7 days. aspirin/acetaminophen/caffei ne (EXCEDRIN MIGRAINE ORAL) (17 sources) aspirin/acetamin ophen/caffe ine (EXCEDRIN MIGRAINE ORAL) Take by mouth every 4 hours as needed. Active aspirin/acetamin ophen/caffeine (EXCEDRIN MIGRAINE ORAL) Take by mouth every 4 hours as needed. 0 Active Comment on above: Take by mouth every 4 hours as needed. clobetasol propionate 0.5 mg/ml topical cream (17 sources) Corticosteroid Start: 02-23-20 clobetasol (TEMOVATE) 0.05 % cream Apply to affected area 2x/day for 2 weeks, then 1x/day for a week, than 1-3x/week for maintenance. 60 g 3 02/22/2022 Active Comment on above: Apply to affected ar ea 2x/day for 2 weeks, then 1x/day for a week, than 1-3x/week for maintenance. doxycycline monohydrate 100 mg oral tablet (1 source) Tetracycline-class Drug Start: 02-24-20 End: 03-02-20 24 take 1 tablet by mouth twice daily doxycycline monohydrate 100 mg tablet Indications: Lower resp. tract infection Take 1 tablet by mouth two times a day for 7 days. 14 tablet 02/24/2024 03/02/2024 Active FLUoxetine 40 mg oral capsule (20 sources) Serotonin Reuptake Inhibitor Start: 08-14-19 25 take 1 capsule by mouth once daily Fluoxetine 40 mg capsule Active 40 mg PO daily August 13, 2024 12:00am Start: 03-13-2024 End: 08-13-2024 take 1 tablet by mouth once daily Fluoxetine 20 mg tablet Discontinued 20 mg PO daily March 13, 2024 12:00am August 13, 2024 8:56am Start: 01-16-2024 End: 03-13-2024 Fluoxetine (Prozac) 40 mg ca psule Discontinued 60 mg PO EVERY MORNING January 16, 2024 12:00am March 13, 2024 4:45pm Start: 10-04-2023 End: 12-05-2023 take 1 capsule by mouth once daily Fluoxetine (Prozac) 20 mg capsule Discontinued 20 mg PO DAILY 11 22October 04, 2023 12:00am December 05, 2023 4:05pm Start: 11-16-2022 End: 10-04-2023 take 1 capsule by mouth once daily Fluoxetine (Prozac) 40 mg capsule Discontinued 40 mg PO DAILY November 16, 2022 12:00am October 04, 2023 8:51am Start: 07-28-2021 End: 02-22-2022 take 1 capsule by mouth once daily Fluoxetine (Prozac) 40 mg capsule Active 40 MG PO DAILY November 16, 2022 12:00am take 3 capsules by [facility] once daily fluoxetine 20 mg capsule TAKE 3 CAPSULES BY MOUTH DAILY active Edie Vaughn [facility] Comment on above: Take 1 capsule by mo [facility] once daily. MYFEMBREE 40-1-0.5 mg tablet (4 sources) Start: 10-10-2022 take 1 tablet by mouth once MYFEMBREE 40-1-0.5 mg tablet Take 1 tablet by mouth every afternoon. 10/10/2022 Active Start: 10-10-2022 take 1 tablet by mouth once MY FEMBREE 40-1-0.5 mg tablet Take 1 tablet by mouth every afternoon. 0 10/10/2022 Active Comment on above: [facility]. nitrofurantoin, macrocrystals 25 mg / nitrofurantoin, monohydrate 75 mg oral capsule (2 sources) Nitrofuran Antibacterial Start: End: take 1 capsule by mouth twice daily at mealtime nitrofurantoin monohydrate and macrocrystal (MACROBID) 100 mg capsule Take 1 capsule by mouth two times a day with meals for 5 days. 10 capsule 0 07/22/2023 07/27/2023 Active Comment on above: Take 1 capsule by mo [facility] two times a day with meals for 5 days. OZEMPIC 0.25 mg or 0.5 mg (2 mg/3 mL) pen (4 sources) Start: OZEMPIC 0.25 mg or 0.5 mg (2 mg/3 mL) pen INJECT 0.25 MG SUBCUTANEOUSLY EVERY WEEK FOR 4 WEEKS 01/08/2023 Active Start: 01-08-2023 OZEMPIC 0.25 m g or 0.5 mg (2 mg/3 mL) pen INJECT 0.25 MG SUBCUTANEOUSLY EVERY WEEK FOR 4 WEEKS 0 01/08/2023 Active Comment on above: INJECT 0.25 MG SUBCU TANEOUSLY EVERY WEEK FOR 4 WEEKS rizatriptan 10 mg oral tablet (17 sources) Serotonin-1b and Serotonin-1d Receptor Agonist Start: 10-21-2018 rizatriptan (MAXALT) 10 mg tablet 1 tab at earliest sign of migraine. May repeat once in 2 hours if needed. Give max allowed per insurance. 9 tablet 11 10/21/2018 Active Comment on above: 1 tab at earliest si gn of migraine. May repeat once in 2 hours if needed. Give max allowed per insurance. Tirzepatide (Weight Loss) (1 source) Start: 01-22-2025 Tirzepatide (Weight Loss) (Zepbound) 2.5 mg/0.5 mL pen injector Active 2.5 mg SC EVERY WEEK 2 0 January 22, 2025 12:00am Daytime hypersomnia Sleep apnea Hypersomnia, unspecified Sleep apnea, unspecified for 4 weeks Completed/Discontinued Medications Medication Drug Class(es) Dates Sig (Normalized) Sig (Original) ferrous sulfate 325 mg oral tablet (14 sources) Start: 12-04-2016 End: 09-08-2022 take 1 tablet by mouth once daily Ferrous Sulfate (Iron) 325 MG tablet Discontinued 325 mg PO DAILY December 04, 2016 12:00am September 08, 2022 8:23am norethindrone acetate 5 mg oral tablet (20 sources) Start: 09-08-2022 End: 09-08-2022 take 1 tablet by mouth once daily Norethindrone Acetate 5 mg tablet Discontinued 5 mg PO DAILY September 08, 2022 12:00am September 08, 2022 9:17am Start: 08-18-2022 End: 08-31-2022 take 1 tablet by mouth three times daily norethindrone (AYGESTIN) 5 mg tablet Take one tablet TID PO 90 tablet 1 08/31/2022 Active Start: 08-10-2022 norethindrone (AYGESTIN) 5 mg tablet Indications: abnormal uterine bleeding due to hormonal imbalance Take 1 tablet TID until bleeding stops, the BID x 3 days, the daily x 3 days. 35 tablet 0 08/10/2022 Active Comment on above: Take 1 tablet TID un til bleeding stops, the BID x 3 days, the daily x 3 days. Take one tablet TID PO phentermine hydrochloride 37.5 mg oral tablet (20 sources) Sympathomimetic Amine Anorectic Start: 12-18-19 End: 01-23-20 take 1 tablet by mouth once daily Phentermine (Adipex-P) 37.5 mg tablet Discontinued 37.5 mg PO daily 30 December 17, 2024 4:04pm January 22, 2025 1:30pm BMI 45 Start: 11-18-2024 End: 12-17-2024 Phentermine (Adipex-P) 37.5 mg tablet Discontinued 18.75 mg PO daily 15 0 November 18, 2024 1:35pm December 17, 2024 4:05pm BMI 48 Start: 06-12-2024 End: 06-12-2024 Phentermine (Adipex-P) 37.5 mg tablet Discontinued 18.75 mg PO daily 15 0 June 12, 2024 5:47pm June 12, 2024 6:05pm BMI 48 Start: 04-16-2024 End: 06-12-2024 take 1 tablet by mouth once daily Phentermine (Adipex-P) 37.5 mg tablet Discontinued 37.5 mg PO daily 30 April 16, 2024 10:15am June 12, 2024 5:48pm BMI 48 Start: 03-13-2024 End: 04-16-2024 Phentermine (Adipex-P) 37.5 mg tablet Discontinued 37.5 mg PO daily 30 0 March 13, 2024 4:48pm April 16, 2024 10:18am BMI 48 1/2 tab x 1 week then titrate to full tab. Start: 02-14-2024 End: 03-13-2024 take 1 tablet by mouth once daily Phentermine (Adipex-P) 37.5 mg tablet Discontinued 37.5 mg PO daily February 14, 2024 11:10am March 13, 2024 4:49pm BMI 48 Start: 02-07-2024 End: 02-14-2024 Phentermine (Adipex-P) 37.5 mg tablet Discontinued 18.75 mg PO daily 16 February 07, 2024 8:09am February 14, 2024 11:11am BMI 48 Start: 09-28-2023 End: 02-07-2024 take 1 tablet by mouth once daily Phentermine (Adipex-P) 37.5 mg tablet Discontinued 37.5 mg PO daily October 04, 2023 8:43am February 07, 2024 10:52am BMI 48 Start: 07-06-2023 End: 09-28-2023 Phentermine (Adipex-P) 37.5 mg tablet Discontinued 18.75 mg PO daily August 09, 2023 3:00pm September 28, 2023 3:19am BMI 50 Feuhhhstu-Xptkmdgyz-Qowuucmh (20 sources) Start: 09-08-2022 End: 02-14-2024 Whpqstdtf-Pdthozgbc-Mwtxaqxl [facility] 40-1-0.5 mg tablet Discontinued 1 {tbl} PO DAILY 12 05September 08, 2022 4:22pm February 14, 2024 11:10am Start: 09-08-2022 End: 02-14-2024 Zccmivaui-Pidnzaemd-Mhyrjfoq [facility] 40-1-0.5 mg tablet Discontinued 1 {tbl} PO DAILY September 08, 2022 4:22pm February 14, 2024 11:10am Start: 09-08-2022 take 1 tablet by mathew once daily Ysihteqkc-Wjfmylwyx-Kwyjtmjrmc (Jessicafembbrittny rodrigues) 40-1-0.5 mg tablet Active 1 TABLET PO DAILY September 08, 2022 4:22pm Start: 09-08-2022 End: 09-08-2022 Xehtmbexk-Rqjevpqzp-Kelwaimp dr [facility] 40-1-0.5 mg tablet Discontinued 1 {tbl} PO DAILY 12 05September 08, 2022 12:00am September 08, 2022 4:22pm Start: 09-08-2022 End: 09-08-2022 Twbiwdjqn-Fabupiiee-Jdlszcmq dr (Myfembree) 40-1-0.5 mg tablet Discontinued 1 {tbl} PO DAILY September 08, 2022 12:00am September 08, 2022 4:22pm Start: 09-08-2022 End: 09-08-2022 take 1 tablet by mouth once daily Afdujbopd-Xebeltpyb-Eenddsezzs (Myfembre e) 40-1-0.5 mg tablet Discontinued 1 TABLET PO DAILY September 08, 2022 12:00am September 08, 2022 4:22pm rosuvastatin calcium 5 mg oral tablet (11 sources) HMG-CoA Reductase Inhibitor Start: 01-08-2023 End: 02-14-2024 take 1 tablet by mouth once daily Rosuvastatin 5 mg tablet Discontinued 5 mg PO DAILY January 08, 2023 12:00am February 14, 2024 11:11am Metabolic syndrome Metabolic syndrome and other insulin resistance Semaglutide (20 sources) Start: 03-01-2023 End: 07-06-2023 Semaglutide (Ozempic) 0.25 mg or 0.5 mg (2 mg/3 mL) pen injector Discontinued 0.25 mg SC EVERY WEEK 3 March 01, 2023 8:02am July 06, 2023 9:52am Metabolic syndrome Metabolic syndrome and other insulin resistance for 4 weeks Start: 03-01-2023 End: 07-06-2023 Semaglutide (Ozempic) 0.25 m g or 0.5 mg (2 mg/3 mL) pen injector Discontinued 0.25 mg SC EVERY WEEK 3 March 01, 2023 8:02am July 06, 2023 9:52am for 4 weeks Start: 03-01-2023 End: 07-06-2023 Semaglutide (Ozempic) 0.25 m g or 0.5 mg (2 mg/3 mL) pen injector Discontinued 0.25 MG SC EVERY WEEK 3 March 01, 2023 8:02am July 06, 2023 9:52am for 4 weeks Start: 02-22-2023 End: 03-01-2023 Semaglutide (Ozempic) 0.25 m g or 0.5 mg (2 mg/3 mL) pen injector Discontinued 0.5 mg SC EVERY WEEK 3 February 22, 2023 3:17pm March 01, 2023 8:02am Metabolic syndrome Metabolic syndrome and other insulin resistance for 4 weeks Start: 02-22-2023 End: 03-01-2023 Semaglutide (Ozempic) 0.25 m g or 0.5 mg (2 mg/3 mL) pen injector Discontinued 0.5 mg SC EVERY WEEK 3 February 22, 2023 3:17pm March 01, 2023 8:02am for 4 weeks Start: 02-22-2023 End: 03-01-2023 Semaglutide (Ozempic) 0.25 m g or 0.5 mg (2 mg/3 mL) pen injector Discontinued 0.5 MG SC EVERY WEEK 3 February 22, 2023 3:17pm March 01, 2023 8:02am for 4 weeks Start: 01-08-2023 End: 02-22-2023 Semaglutide (Ozempic) 0.25 m g or 0.5 mg (2 mg/3 mL) pen injector Discontinued 0.25 mg SC EVERY WEEK 3 January 08, 2023 12:00am February 22, 2023 3:18pm Metabolic syndrome Metabolic syndrome and other insulin resistance for 4 weeks Start: 01-08-2023 End: 02-22-2023 Semaglutide (Ozempic) 0.25 m g or 0.5 mg (2 mg/3 mL) pen injector Discontinued 0.25 mg SC EVERY WEEK 3 January 08, 2023 12:00am February 22, 2023 3:18pm for 4 weeks Start: 01-08-2023 End: 02-22-2023 Semaglutide (Ozempic) 0.25 m g or 0.5 mg (2 mg/3 mL) pen injector Discontinued 0.25 MG SC EVERY WEEK January 08, 2023 12:00am February 22, 2023 3:18pm for 4 weeks Start: 01-08-2023 Semaglutide (O zempic) 0.25 mg or 0.5 mg (2 mg/3 mL) pen injector Active 0.25 MG SC EVERY WEEK January 08, 2023 12:00am for 4 weeks topiramate 50 mg oral tablet (20 sources) Start: 10-04-2023 End: 01-22-2025 take 1 tablet by mouth twice daily before breakfast Topiramate 50 mg tablet Discontinued 50 mg PO TWICE A DAY 60 July 10, 2024 12:18pm January 22, 2025 1:30pm restart taking 1/2 tab BID x 2 weeks then titrate back to 50mg dosing. take before breakfast and before dinner Start: 07-06-2023 End: 10-04-2023 take 1 tablet by mouth twice daily before breakfast Topiramate (Topamax) 25 mg tablet Discontinued 25 mg PO TWICE A DAY 60 July 06, 2023 1:00am October 04, 2023 8:55am take before breakfast and before dinner Start: 10-21-2018 take 1 tablet by mathew th once daily in the evening topiramate (TOPAMAX) 100 mg tablet Take 1 tablet by mouth every evening. 30 tablet 11 10/21/2018 Active Comment on above: Take 1 tablet by mathew th every evening. 24 hr venlafaxine 75 mg extended release oral capsule (16 sources) Serotonin and Norepinephrine Reuptake Inhibitor Start: 10-04-19 End: 01-16-20 take 1 capsule by mouth once daily Venlafaxine (Effexor Xr) 75 mg capsule,extended release 24hr Discontinued 75 mg PO DAILY 90 December 05, 2023 4:36pm January 16, 2024 4:12pm Problems Active Problems Problem Classification Problem Date Documented Date Episodic/Chronic Adjustment disorders (17 sources) Adjustment disorder with mixed anxiety and depressed mood; Translations: [Adjustment disorder with mixed anxiety and depressed mood] Onset: 12-13-2009 12-13-2009 Chronic Cardiac dysrhythmias (1 source) Unspecified atrial fibrillation; Translations: [Unspecified atrial fibrillation] Onset: 11-05-2024 Chronic Disorders of lipid metabolism (20 sources) Hypercholesterolemia; Translations: [Pure hypercholesterolemia, unspecified] 11-10-2022 Chronic Comment on above: pcp referral, starte d on statin, recommend 5-10% weight loss. Endometriosis (2 sources) Uterine adenomyosis; Translations: [Adenomyosis] Chronic Genitourinary symptoms and ill-defined conditions (1 source) Increased frequency of urination; Translations: [Frequency of micturition] 07-22-2023 Episodic Headache; including migraine (17 sources) Migraine; Translations: [Migraine, unspecified, not intractable, without status migrainosus] Onset: 10-14-2012 10-14-2012 Chronic Menstrual disorders (3 sources) Menorrhagia; Translations: [Excessive and frequent menstruation with regular cycle] Chronic Mood disorders (20 sources) Depressive disorder; Translations: [Depression] 07-10-2024 Chronic Comment on above: managed through PCP; Prozac Nonspecific chest pain (1 source) Chest pain, unspecified; Translations: [Chest pain, unspecified] Onset: 03-17-2025 Episodic Nutritional deficiencies (17 sources) Vitamin D deficiency; Translations: [Vitamin D deficiency, unspecified] Onset: 10-22-2012 10-22-2012 Chronic Osteoarthritis (2 sources) Osteoarthritis of right knee joint; Translations: [Unilateral primary osteoarthritis, right knee] Onset: 07-06-2022 10-22-2024 Chronic Other circulatory disease (8 sources) Increased diastolic arterial pressure; Translations: [Elevated blood-pressure reading, without diagnosis of hypertension] 08-06-2024 Episodic Other ear and sense organ disorders (1 source) Impacted cerumen in left ear; Translations: [Impacted cerumen, left ear] 02-03-2023 Episodic Other female genital disorders (20 sources) Abnormal uterine bleeding; Translations: [Abnormal uterine and vaginal bleeding, unspecified] Chronic Comment on above: s/p labs, US previou s- done at [facility]. IUD unable to be placed at [facility]. Other female genital disorders (9 sources) Abnormal uterine and vaginal bleeding, unspecified; Translations: [Unspecified disorders of menstruation and other abnormal bleeding from female genital tract] 09-08-2022 Chronic Other female genital disorders (1 source) Vulval irritation; Translations: [Other specified noninflammatory disorders of vulva and perineum] Episodic Other female genital disorders (1 source) Stenosis of cervix; Translations: [Stricture and stenosis of cervix uteri] Episodic Other lower respiratory disease (13 sources) Snoring; Translations: [Snoring] 11-07-2022 Episodic Comment on above: s/p pulmonary consul t Other lower respiratory disease (7 sources) Snoring; Translations: [Other respiratory abnormalities] 11-07-2022 Episodic Other lower respiratory disease (1 source) Lower respiratory tract infection; Translations: [Unspecified acute lower respiratory infection] 02-24-2024 Episodic Other lower respiratory disease (15 sources) Dyspnea on exertion; Translations: [Other forms of dyspnea] 08-13-2024 Episodic Other nervous system disorders (14 sources) H/O: epilepsy; Translations: [Personal history of other diseases of the nervous system and sense organs] 12-25-2017 Episodic Other nutritional; endocrine; and metabolic disorders (1 source) Severe obesity; Translations: [Morbid (severe) obesity due to excess calories] Chronic Other nutritional; endocrine; and metabolic disorders (20 sources) Obesity; Translations: [Other obesity] 11-13-2022 Chronic Comment on above: Nutrition plan: Damaris hoffman with [employer]; restart tracking; S/P emr trainer consult; not getting enough protein; Incorporating more food into her day; 2 protein shakes; meal for lunch. Recommend incorporating vegetables/fruit. Balance to diet. Medication plan: half tab on hold due to heart fluttering; hard to say if this is from stress. Will return in 1 week for NV-if stable will send in 1/2 tab phen. no SE today. monitor closely. OARRS clarified at visit today. 50 bid topiramate--has not been taking-refill--titrate dosing recommended. She has recently started taking mg and vitamin D. tqdixrw-mroineawzpjig-tzqkrhb vasectomy. Behavior intervention: recommend daily journal of food intake with electronic methods; Continue counseling; limit snacking. Mindful eating and portion control. Stress management--ladd. Exercise plan: increase daily steps; up to around 8,000 steps; work is very active; make the steps count; and NEAT activity. Biking twice a week. Nutrition plan: Damaris with [employer]; restart tracking; S/P emr trainer consult; not getting enough protein; Incorporating more food into her day; 2 protein shakes; meal for lunch. Recommend incorporating vegetables/fruit. Balance to diet. Medication plan: consider vyvanse--needs to follow through with holter monitor and clearance through cardiology prior to starting. She has recently started taking mg and vitamin D. ikoupgz-orcpnehkdxaju-dzbyiqy vasectomy. Behavior intervention: recommend daily journal of food intake with electronic methods; Continue counseling; limit snacking. Mindful eating and portion control. Stress management--ladd. Exercise plan: increase daily steps; up to around 6,000 steps; work is very active; make the steps count; and NEAT activity. Elliptical. Nutrition plan: Damaris hoffman with [employer]; restart tracking; S/P emr trainer consult; not getting enough protein; Incorporating more food into her day; 2 protein shakes; meal for lunch. Recommend incorporating vegetables/fruit. Balance to diet. Medication plan: monitor closely. OARRS clarified at visit today. 50 bid topiramate--has not been taking-refill--titrate dosing recommended. She has recently started taking mg and vitamin D. ukdofpl-ypbxymfnesjru-rbvozqb vasectomy. Behavior intervention: recommend daily journal of food intake with electronic methods; Continue counseling; limit snacking. Mindful eating and portion control. Stress management--ladd. Exercise plan: increase daily steps; up to around 6,000 steps; work is very active; make the steps count; and NEAT activity. Doing elliptical. Nutrition plan: Damaris hoffman with [employer]; restart tracking; S/P emr trainer consult; not getting enough protein; Incorporating more food into her day; eggs/fair life/steak/2 protein shakes; meal for lunch. Recommend incorporating vegetables/fruit. Balance to diet. Medication plan: consider vyvanse--needs to follow through with holter monitor and clearance through cardiology prior to starting. She has recently started taking mg and vitamin D. zbejuhw-xurimygpqpclp-djsynjz vasectomy. Behavior intervention: recommend daily journal of food intake with electronic methods; Continue counseling; limit snacking. Mindful eating and portion control. Stress management--ladd. Exercise plan: increase daily steps; up to around 6,000 steps; work is very active; make the steps count; and NEAT activity. Elliptical. Nutrition plan: Damaris hoffman with [employer]; S/P emr trainer consult; Incorporating more food into her day; eggs/fair life/steak/2 protein shakes. Recommend incorporating vegetables/fruit. Balance to diet. Medication plan: consider GLP1--clearance for phentermine through cardiology-will increase to full tab. She has recently started taking mg and vitamin D. uuxdqia-mrmgngnbzkbgm-bmwnjhh vasectomy. Behavior intervention: recommend daily journal of food intake with electronic methods; Continue counseling; limit snacking. Mindful eating and portion control. Stress management--ladd. Exercise plan: Uo to around 6,000 steps prior; NEAT activity. recently tore meniscus and is bone on bone--needed knee replacement. Doing what she can without straining more. Other nutritional; endocrine; and metabolic disorders (20 sources) Body mass index 40+ - severely obese; Translations: [Body mass index (BMI) 50.0-59.9, adult] 11-07-2022 Chronic Comment on above: SW- 287 Currently 26 0 lbs. Initial goal- 5% weight reduction within 3 months of nutritional and medication intervention recommendations.s/p nutrition and pulmonary consult done, labs reviewed, EKG most recent normal SW- 287 Initial goal - 5% weight reduction within 3 months of nutritional and medication intervention recommendations.s/p nutrition and pulmonary consult done, labs reviewed, EKG most recent normal SW- 287 Initial goal - 5% weight reduction within 3 months of nutritional and medication intervention recommendations.s/p nutrition, pulmonary and cardiology consult done, labs reviewed, EKG most recent normal Other nutritional; endocrine; and metabolic disorders (7 sources) Body mass index (BMI) 50.0-59.9, adult; Translations: [Body Mass Index 50.0-59.9, adult] 11-07-2022 Chronic Other nutritional; endocrine; and metabolic disorders (11 sources) Other obesity; Translations: [Obesity, unspecified] 11-07-2022 Chronic Other nutritional; endocrine; and metabolic disorders (20 sources) Metabolic syndrome X; Translations: [Metabolic syndrome] 01-08-2023 Chronic Comment on above: weight management pr barry, nutrition consult, ozempic ordered- not covered. Other nutritional; endocrine; and metabolic disorders (2 sources) Metabolic syndrome; Translations: [Dysmetabolic syndrome X] 01-08-2023 Chronic Other screening for suspected conditions (not mental disorders or infectious disease) (5 sources) Cancer cervix screening status; Translations: [Encounter for screening for malignant neoplasm of cervix] Onset: 03-18-2025 Episodic Other upper respiratory infections (2 sources) Sore throat symptom; Translations: [Acute pharyngitis, unspecified] 02-03-2023 Episodic Otitis media and related conditions (1 source) Acute suppurative otitis media; Translations: [Acute suppurative otitis media without spontaneous rupture of ear drum, left ear] 02-03-2023 Episodic Residual codes; unclassified (13 sources) Daytime hypersomnia; Translations: [Hypersomnia, unspecified] 11-16-2022 Chronic Residual codes; unclassified (5 sources) Hypersomnia, unspecified; Translations: [Hypersomnia, unspecified] Onset: 01-22-2025 11-16-2022 Chronic Residual codes; unclassified (1 source) Sleep apnea, unspecified; Translations: [Sleep apnea, unspecified] Onset: 01-22-2025 Chronic Residual codes; unclassified (14 sources) Excessive caffeine intake; Translations: [Other specified health status] 08-13-2024 Episodic Screening and history of mental health and substance abuse codes (14 sources) H/O: depression; Translations: [Personal history of other mental and behavioral disorders] 12-25-2017 Episodic Unclassified (14 sources) History of Otalgia 12-25-2017 Unclassified (5 sources) R00.0 - Tachycardia, unspecified,R00.2 - Palpitations Past or Other Problems Problem Classification Problem Date Documented Date Episodic/Chronic Allergic reactions (17 sources) Dermatographic urticaria; Translations: [Dermatographic urticaria] Onset: 01-12-2009 01-12-2009 Episodic Biliary tract disease (17 sources) Biliary calculus; Translations: [Calculus of gallbladder with chronic cholecystitis without obstruction] Onset: 11-10-2010 11-10-2010 Episodic Cardiac dysrhythmias (20 sources) Tachycardia; Translations: [Palpitations] Onset: 10-08-2024 Episodic Joint disorders and dislocations; trauma-related (1 source) Other tear of medial meniscus, current injury, left knee, initial encounter; Translations: [Tear of medial cartilage or meniscus of knee, current] Onset: 02-12-2018 02-12-2018 Episodic Joint disorders and dislocations; trauma-related (1 source) Other tear of medial meniscus, current injury, right knee, initial encounter; Translations: [Tear of medial cartilage or meniscus of knee, current] Onset: 02-11-2018 02-11-2018 Episodic Malaise and fatigue (17 sources) Fatigue; Translations: [Other fatigue] Onset: 10-14-2012 10-14-2012 Episodic Nonmalignant breast conditions (18 sources) Solitary cyst of breast; Translations: [Solitary cyst of unspecified breast] Onset: 04-29-2015 04-29-2015 Episodic Other inflammatory condition of skin (17 sources) Pruritus of skin; Translations: [Pruritus, unspecified] Onset: 01-12-2009 01-12-2009 Episodic Other lower respiratory disease (1 source) Other forms of dyspnea; Translations: [Other forms of dyspnea] Onset: 10-08-2024 Episodic Other nutritional; endocrine; and metabolic disorders (1 source) Polydipsia; Translations: [Polydipsia] Onset: 10-24-2024 Episodic Other and delivery including normal (1 source) Normal ; Translations: [Encounter for supervision of other normal , unspecified trimester] Onset: 09-29-2005 Resolved: 12-13-2009 12-13-2009 Episodic Results Test Name Value Interpretation Reference Range Facility Lunchroom Supervisor Office Visit Reporton 03-18-2025 Lunchroom Supervisor Office Visit Report [facility] [address], [address] [place] [address] OFFICE VISIT Date of Service: 03/18/25 MR#: [id number] Acct: [id number] Name: BJ MÉNDEZ Rep #: [id number] : 1975 Provider: SORAYA Ventura Age/Sex: 49/F Location: [facility] Status: Signed Intake Vital Signs 03/06/25 09:09 03/18/25 10:15 Height 5 ft 5.2 in 5 ft 5.2 in Weight: 275 lb 5 oz BMI 45.5 BP 111/78 Pulse 93 Intake Visit Reasons: 5 WK F/U Director Digital Required: No Is patient in pain?: No Allergies No Known Allergies Allergy (Verified 03/18/25 15:31) Medications ???Medication ???Instructions ???Recorded ???Confirmed ???Type fluoxetine 40 mg capsule 40 mg PO QDAY 08/13/24 03/18/25 Hi story phentermine 37.5 mg tablet 37.5 mg PO QDAY #30 tabs 03/18/25 03/18/25 Rx (Adipex-P) Last Menstrual Period: 07/23/22 Zika: Zika virus screening: Negative : No Have you fallen in the past year?: No PFSH PFSH Medical History Diastolic blood pressure 90 mm Hg or higher BMI 45.0-49.9, adult Hyperlipemia Tachycardia Surgical History S/P S/P knee surgery S/P tonsillectomy S/P cholecystectomy S/P shoulder surgery Family History Grandmother , age 31 Cancer Social History number of children: 3 current occupational status: employed 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 Was not able to pay $1600 for medication. She was then restarted on phentermine; doing well with this; denies side effects however has not seen improvement in the past 3 weeks. She however has been unable to have a focused nutrition plan; denotes this to her work place/stress. Female Reproductive History Last Menstrual Period: 07/23/22 Menopausal Symptoms: Yes difficulty concentrating ROS Const Reports as per HPI, Reports difficulty sleeping, Denies excessive sweating, Denies fatigue (new onset severe) and Denies fever(s) Eyes Denies change in vision and Denies diplopia ENT Denies dizziness Card Denies chest pain, Denies dyspnea, Denies dyspnea on exertion, Denies palpitations and Reports rapid heart rate Resp Denies dyspnea and Denies dyspnea on exertion GI Reports as per HPI, Denies abdominal pain and Denies constipation Musc Denies numbness Neuro No confusion, No dizziness and No numbness Psych Denies confusion, Reports depression (improved), Reports difficulty concentrating, Denies homicidal ideation, Denies mood swings and Denies suicidal ideation Endo Denies excessive sweating, Denies fatigue (new onset severe), Denies palpitations and Reports other (denies symptoms of hypoglycemia) Exam Const General: cooperative, healthy appearing, comfortable and no acute distress Orientation: alert HENMT Head: normal to inspection and normocephalic Eyes General: appearance normal, both eyes and all related structures Neck Thyroid: thyroid normal Resp Effort Inspection: normal respiratory effort Auscultation: clear to auscultation bilaterally Cardio Rate: tachycardic Rhythm: regular rhythm Heart Sounds: S1 normal and S2 normal Musc Other: gross motor intact no deficits, full bilateral strength Skin General: no rashes or lesions noted Neuro Motor: muscle tone normal throughout Extrem General: no pedal edema Assessment and Plan Assessment and Plan (1) Metabolic syndrome: Status: Acute Comment: weight management program, nutrition consult, ordered zepbound (2) High cholesterol: Status: Acute Comment: pcp referral, started on statin, recommend 5-10% weight loss. (3) Depression: Status: Acute Comment: managed through PCP; Prozac Plan: Continue counseling; management through PCP. She has bumped herself up to 40mg dosing. This may cause resistance to weight loss. (4) Obesity, morbid, BMI 40.0-49.9: Status: Acute Comment: - 287 Initial goal- 5% weight reduction within 3 months of nutritional and medication intervention recommendations. s/p nutrition, pulmonary and cardiology consult done, labs reviewed, EKG most recent normal (5) Other obesity: Status: Acute Comment: Nutrition plan: Tracking with [employer]; S/P emr trainer consult; Incorporating more food into her day; eggs/fair life/steak/2 protein shakes. Recommend incorporating (more content not included)... Normal [facility] 12 Lead EKGon 03-06-2025 12 Lead EKG [facility] [address] [place] [address] 12 Lead EKG 03/06/25 0918 MR#: [id number] Acct: [id number] Name: BJ MÉNDEZ Rep #: [id number] : 1975 49 From: Juliann Guardado MD Attending Dr: Status: DEP ER Ordering Dr: Isauro Zarco DO Date: 03/06/25 Location: ED Sex: F C Admitted: Test Reason : CP Blood Pressure : */* mmHG Vent. Rate : 92 BPM Atrial Rate : 92 BPM P-R Int : 138 ms QRS Dur : 76 ms QT Int : 354 ms P-R-T Axes : 46 21 29 degrees QTcB Int : 437 ms Normal sinus rhythm Normal ECG Confirmed by JULIANN GUARDADO ([id number]), brands editor MIKE SANCHEZ ([id number]) on 03/09/2025 6:56:25 AM Referred By: ER/DH Confirmed By: JULIANN GUARDADO 03/09/25 0656 Date Juliann Guardado MD CC: Dr. Isauro Zarco, DO; Dr. Jv Cortes DO Signed Normal [facility] Basic Metabolic Profile (BMP )on 03-06-2025 BUN/CRE 20.7 RATIO High 03-02 [facility] Comment on above: Performed By: #### L 100.0100, L500.2500, L501.5200, L501.4021 #### [facility] [address] [place], [address] Calcium [Mass/Vol] 8.9 mg/dL Normal 7.6-11.0 [facility] Comment on above: Performed By: #### L 100.0100, L500.2500, L501.5200, L501.4021 #### [facility] [address] [place], [address] Chloride [Moles/Vol] 104 mmol/L Normal 98-108 [facility] Comment on above: Performed By: #### L 100.0100, L500.2500, L501.5200, L501.4021 #### [facility] [address] [place], [address] CO2 [Moles/Vol] 25.9 mmol/L Normal 21.0-32.0 [facility] Comment on above: Performed By: #### L 100.0100, L500.2500, L501.5200, L501.4021 #### [facility] [address] [place], [address] Creatinine [Mass/Vol] 0.62 mg/dL Low 0.70-1.20 [facility] Comment on above: Performed By: #### L 100.0100, L500.2500, L501.5200, L501.4021 #### [facility] [address] [place], [address] ECRCL 149.48 ml/min Normal 50-250 [facility] Comment on above: Performed By: #### L 100.0100, L500.2500, L501.5200, L501.4021 #### [facility] [address] [place], [address] GAP 10 Normal 5-15 [facility] Comment on above: Performed By: #### L 100.0100, L500.2500, L501.5200, L501.4021 #### [facility] [address] [place], [address] GFR/1.73 sq M.predicted among non-blacks MDRD (S/P/Bld) [Vol rate/Area] 110 mL/min/{1.73_m2} Normal >60 [facility] Comment on above: Result Comment: mL/m in/1.73m2 CKD-EPI Creatinine Equation (2020) Performed By: #### L 100.0100, L500.2500, L501.5200, L501.4021 #### [facility] [address] [place], [address] Glucose [Mass/Vol] 86 mg/dL Normal 70-99 [facility] Comment on above: Performed By: #### L 100.0100, L500.2500, L501.5200, L501.4021 #### [facility] [address] [place], [address] Potassium [Moles/Vol] 3.8 mmol/L Normal 3.3-5.1 [facility] Comment on above: Performed By: #### L 100.0100, L500.2500, L501.5200, L501.4021 #### [facility] [address] [place], [address] Sodium [Moles/Vol] 139 mmol/L Normal 133-145 [facility] Comment on above: Performed By: #### L 100.0100, L500.2500, L501.5200, L501.4021 #### [facility] [address] [place], [address] Urea nitrogen [Mass/Vol] 13 mg/dL Normal 4-19 [facility] Comment on above: Performed By: #### L 100.0100, L500.2500, L501.5200, L501.4021 #### [facility] [address] [place], [address] CBC W/Diff, Automatedon 10-2 -2024 Absolute Lymph 1.34 X10 3/uL Normal 0.83-4.51 [facility] Comment on above: Performed By: #### L 100.0100, L500.2500, L501.5200, L501.4021 #### [facility] [address] [place], [address] Absolute Neut 4.8 X10 3/uL Normal 2.0-7.7 [facility] Comment on above: Performed By: #### L 100.0100, L500.2500, L501.5200, L501.4021 #### [facility] [address] [place], [address] Basophils/100 WBC (Bld) 0.7 % Normal 0-1 [facility] Comment on above: Performed By: #### L 100.0100, L500.2500, L501.5200, L501.4021 #### [facility] [address] [place], [address] Eosinophils/100 WBC (Bld) 2.2 % Normal 0-5 [facility] Comment on above: Performed By: #### L 100.0100, L500.2500, L501.5200, L501.4021 #### [facility] [address] [place], [address] Erythrocyte distribution width (RBC) [Ratio] 12.7 % Normal 11.6-14.6 [facility] Comment on above: Performed By: #### L 100.0100, L500.2500, L501.5200, L501.4021 #### [facility] [address] [place], [address] Hematocrit (Bld) [Volume fraction] 39.8 % Normal 37-47 [facility] Comment on above: Performed By: #### L 100.0100, L500.2500, L501.5200, L501.4021 #### [facility] [address] [place], [address] Hemoglobin (Bld) [Mass/Vol] 13.3 g/dL Normal 12.0-15.0 [facility] Comment on above: Performed By: #### L 100.0100, L500.2500, L501.5200, L501.4021 #### [facility] [address] [place], [address] IG% 0.300 Normal 0.0-0.9 [facility] Comment on above: Result Comment: IG% - Immature Granulocytes (promyelocytes, myelocytes and metamyelocytes) > 1% indicates that a LEFT SHIFT is Present. Performed By: #### L 100.0100, L500.2500, L501.5200, L501.4021 #### [facility] [address] [place], [address] Lymphocytes/100 WBC (Bld) 18.7 % Low 19-41 [facility] Comment on above: Performed By: #### L 100.0100, L500.2500, L501.5200, L501.4021 #### [facility] [address] [place], [address] MCH (RBC) [Entitic mass] 30.3 pg Normal 27.0-32.0 [facility] Comment on above: Performed By: #### L 100.0100, L500.2500, L501.5200, L501.4021 #### [facility] [address] [place], [address] MCHC (RBC) [Mass/Vol] 33.4 g/dL Normal 32-36 [facility] Comment on above: Performed By: #### L 100.0100, L500.2500, L501.5200, L501.4021 #### [facility] [address] [place], [address] MCV (RBC) [Entitic vol] 90.7 fL Normal 81-99 [facility] Comment on above: Performed By: #### L 100.0100, L500.2500, L501.5200, L501.4021 #### [facility] [address] [place], [address] Monocytes/100 WBC (Bld) 10.8 % High 0-10 [facility] Comment on above: Performed By: #### L 100.0100, L500.2500, L501.5200, L501.4021 #### [facility] [address] [place], [address] Neutrophils/100 WBC (Bld) 67.3 % Normal 47-70 [facility] Comment on above: Performed By: #### L 100.0100, L500.2500, L501.5200, L501.4021 #### [facility] [address] [place], [address] Nucleated RBC (Bld) [#/Vol] 0 10*3/uL Normal 0-5 [facility] Comment on above: Performed By: #### L 100.0100, L500.2500, L501.5200, L501.4021 #### [facility] [address] [place], [address] Platelet mean volume (Bld) [Entitic vol] 10.2 fL Normal 6.2-12.0 [facility] Comment on above: Performed By: #### L 100.0100, L500.2500, L501.5200, L501.4021 #### [facility] [address] [place], [address] Platelets (Bld) [#/Vol] 304 10*3/uL Normal 150-450 [facility] Comment on above: Performed By: #### L 100.0100, L500.2500, L501.5200, L501.4021 #### [facility] [address] [place], [address] RBC (Bld) [#/Vol] 4.39 10*6/uL Normal 4.2-5.4 [facility] Comment on above: Performed By: #### L 100.0100, L500.2500, L501.5200, L501.4021 #### [facility] [address] [place], [address] RDW SD 41.6 fl Normal 35.1-43.9 [facility] Comment on above: Performed By: #### L 100.0100, L500.2500, L501.5200, L501.4021 #### [facility] [address] [place], [address] WBC (Bld) [#/Vol] 7.2 10*3/uL Normal 4.4-11.0 [facility] Comment on above: Performed By: #### L 100.0100, L500.2500, L501.5200, L501.4021 #### [facility] [address] [place], [address] CTA Chest W/WO Contraston CTA Chest W/WO Contrast [facility] [address] [place] [address] CTA Chest W/WO Contrast MR#: [id number] Acct: [id number] Name: BJ MÉNDEZ Rep #: [id number] : 1975 F 49 From: Beka Castro MD PCP: Dr. Jv Cortes DO Status: [facility] ER Study: CTA Chest W/WO Contrast Date of Exam: 03/06/25 Exam# [id number] Ordering Dr: Isauro Zarco DO PROCEDURE: CTA CHEST W/WO CONTRAST 03/06/2025 REASON FOR EXAM: CHEST PAIN SOB ELEVATED DDIMER TECHNIQUE: Procedure Code: CTCTACHWW Modality: CT Procedure: CTA CHEST W/WO CONTRAST Multiplanar Sagittal and Coronal images were obtained. CONTRAST: Isovue 370 VOLUME: 96 mL One or more dose reduction techniques were used (e.g., Automated exposure control, adjustment of the mA and/or kV according to patient size, use of iterative reconstruction technique). RADIATION DOSE SUMMARY: CTDlvol: 15.83 mGy DLP: 517.98 mGycm COMPARISON: None. # of known CTs in the past 12 months: 0. # of known Cardiac Nuclear Medicine Studies in the past 12 months: 0. FINDINGS: Thoracic Aorta: No aneurysm. No dissection. Heart: No cardiomegaly. Pulmonary Vessels: No evidence of pulmonary embolism. Hardware: None. Lymph nodes: No lymphadenopathy. Lungs and Airways: Clear. Pleura: No pleural effusion or pneumothorax. Upper Abdomen: Unremarkable. Bones: No acute bony abnormalities. CT/CTA Chest W/WO Contrast IMPRESSION: No evidence of acute chest abnormalities. No evidence of pulmonary embolism. Reading Location: [facility] CC: Dr. Isauro Zarco DO; Dr. Jv Cortes DO Special Events Driver: Signed Normal [facility] Chest 1 View (Portable)on Chest 1 View (Portable) [facility] [address] [place] [address] Chest 1 View (Portable) MR#: [id number] Acct: [id number] Name: BJ MÉNDEZ Rep #: [id number] : 1975 F 49 From: Kindra Hidalgo PCP: Dr. Jv Cortes DO Status: REG ER Study: Chest 1 View (Portable) Date of Exam: 03/06/25 Exam# [id number] Ordering Dr: Isauro Zarco DO PROCEDURE: CHEST 1 VIEW (PORTABLE) 03/06/2025 REASON FOR EXAM: CHEST PAIN TECHNIQUE: Frontal view of the chest. FINDINGS: Right lower lobe opacity likely subsegmental atelectasis. No definite focal consolidations. No pleural effusion or pneumothorax. Cardiac silhouette is within normal limits. No acute fractures. RAD/Chest 1 View (Portable) IMPRESSION: Right lower lobe opacity likely subsegmental atelectasis. No definite focal consolidations. Reading Location: [facility] CC: Dr. Isauro Zarco DO; Dr. Jv Cortes DO Special Events Driver: Signed Normal [facility] D-Dimer Quantitative (DVT/PE )on 03-06-2025 D-DIMER QUANT 0.73 FEU/ug/m Invalid Interpretation Code 0.27-0.49 [facility] Comment on above: Result Comment: D-Di remi ELEVATED (>0.49): Additional studies and clinical assessments are indicated to conclude diagnosis of: Deep Vein Thrombosis (DVT) or Pulmonary Embolism (PE) CRITICAL VALUE CALLED TO EULALIA HANNA (ER) 03/06/25 1001 Jamey Bowman. RESULTS READ BACK BY SAME. Performed By: #### L 300.2263 #### [facility] [address] [place], [address] Emergency Department Summary on 03-06-2025 Emergency Department Summary [facility] Medical Records Department [address] [place] [address] Emergency Department Summary 03/06/25 MR#: [id number] Acct: [id number] Name: BJ MÉNDEZ Rep #: [id number] : 1975 49 From: Isauro Zarco DO PCP: Dr. Jv Cortes DO Status:DEP ER Location: ED HPI History of Present Illness Chief Complaint: Chest Pain Informant: patient and spouse/S.O. Narrative Narrative: 49-year-old female presenting to the emergency room with a chief complaint of chest pressure and sensation of heart racing. Patient states that she went to the chiropractor around 615 this morning. She had electric stimulation and manipulation. States that around [address] into work when she got a chest pressure-like sensation that radiate up towards her jaw and a sensation that her heart was racing. 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 BP systolic around 140/100 and HR of 110. She states that she felt that it was harder to take a breath. Her symptoms have improved but still feels like her breathing is a bit labored. She denies any new medications. She states that she is not treated for hypertension. She does not monitor her blood pressure or heart rate at home. She notes over the past week her legs have been a little bit more swollen than normal and she feels that she is urinating more frequently than normal. She states she does not have a history of sleep apnea. She states that she had a stress test in the spring that she passed. [facility] Medical History Diastolic blood pressure 90 mm Hg or higher BMI 45.0-49.9, adult Hyperlipemia Tachycardia Home Medications ???Medication ???Instructions ???Recorded ???Last Taken ???Type fluoxetine 40 mg capsule 40 mg PO QDAY 08/13/24 Unknown His tory phentermine 37.5 mg tablet 18.75 mg (1/2 x 37.5 mg) PO QDAY 1 Unknown Rx (Adipex-P) #16 tabs Allergy/AdvReac Type Severity Reaction Status Date / Time No Known Allergies Allergy Verified 03/06/25 09:09 Family History Grandmother , age 31 Cancer Surgical History S/P S/P knee surgery S/P tonsillectomy S/P cholecystectomy S/P shoulder surgery Social History number of children: 3 current occupational status: employed 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 smoker alcohol intake: never substance use type: does not use seatbelt use: always do you feel safe at home: Yes additional social history: - [employer]- Teacher [place] ROS ROS ED Constitutional Constitutional ED: Denies chills, fever(s) or weight loss Eyes Eyes: Denies change in vision or diplopia ENT ENT ED: Denies ear pain, rhinorrhea or sore throat Cardiovascular Cardiovascular: Reports chest pain and racing heartbeat; Denies orthopnea or palpitations Respiratory/Chest Respiratory/Chest: Reports dyspnea; Denies cough or orthopnea Gastrointestinal Gastrointestinal: Denies abdominal pain, diarrhea, nausea or vomiting Genitourinary Genitourinary ED: Reports urinary frequency; Denies dysuria or hematuria Musculoskeletal Musculoskeletal: Reports other Details: Mild leg swelling ; Denies arthralgias or myalgias Integumentary Denies abscess or rash Neurologic Neurologic: Denies headache(s) or weakness Psychiatric Psychiatric: Denies anxiety, depression, suicidal ideation or suicidal thoughts Endocrine Endocrinology: Denies polydipsia, polyphagia or polyuria Allergic/Immunologic Allergic/Immunologic ED: Denies mouth swelling, tongue swelling or urticaria EXAM Physical Exam Const Vital Signs: 03/06/25 09:09 03/06/25 10:09 03/06/25 11:00 Temperature 98.3 F Temperature Source Oral Pulse Rate 104 H 87 86 Respiratory Rate 18 18 16 Blood Pressure 142/98 H 151/78 H 148/74 H Blood Pressure Mean 112 102 98 Pulse Ox 98 98 99 Oxygen Delivery Method Room Air 03/06/25 12:00 Temperature Temperature Source Pulse Rate 80 Respiratory Rate 16 Blood Pressure 140/68 H Blood Pressure Mean 92 Pulse Ox 99 Oxygen Delivery Method Positive well nourished and well developed General Appearance ED: well developed and NAD HEENT Reports normocephalic, head/scalp atraumatic and moist mucous membranes Eyes PERRL and EOMs intact bilaterally Neck no lymphadenopathy, supple and no JVD Resp normal respiratory effort and clear to auscultation bilaterally Resp Narrative: breathing appears unlabored Cardio regular rate, regular rhythm and no murmur (more content not included)... Normal [facility] L501.4021on 03-06-2025 Trop T High Sen 7 ng/L Normal <=14 [facility] Comment on above: Performed By: #### L 100.0100, L500.2500, L501.5200, L501.4021 #### [facility] [address] [place], [address] Magnesiumon 03-06-2025 Magnesium [Mass/Vol] 2.0 mg/dL Normal 1.5-2.2 [facility] Comment on above: Performed By: #### L 100.0100, L500.2500, L501.5200, L501.4021 ####[facility] [address] [place], [address] Troponin T HS 2 HRon 03-06- 025 Trop T High Sen 7 ng/L Normal <=14 [facility] Comment on above: Performed By: #### L 499.0042 ####[facility] [address] [place], [address] Urinalysis, Completeon 03-06 EPI,SQUAMOUS 5-10 SEEN Normal 5-10 [facility] Comment on above: Order Comment: GABY CTOR TO SPECIFY Performed By: #### L 400.0001 ####[facility] [address] [place], [address] WBC 0-5 SEEN Normal 0-5 [facility] Comment on above: Order Comment: COLLE CTOR TO SPECIFY Performed By: #### L 400.0001 ####[facility] [address] [place], [address] BACTERIA 0 SEEN Normal None Seen [facility] Comment on above: Order Comment: COLLE CTOR TO SPECIFY Performed By: #### L 400.0001 ####[facility] [address] [place], [address] Mucus Ql (Urine sed) 0 SEEN Normal [facility] Comment on above: Order Comment: GABY CTOR TO SPECIFY Performed By: #### L 400.0001 ####[facility] [address] [place], [address] RBC 0 SEEN Normal 0-5 [facility] Comment on above: Order Comment: GABY CTOR TO SPECIFY Performed By: #### L 400.0001 ####[facility] [address] [place], [address] Lunchroom Supervisor Office Visit Reporton 01-22-2025 Lunchroom Supervisor Office Visit Report [facility], [address] [place] [address] OFFICE VISIT Date of Service: 01/22/25 MR#: [id number] Acct: [id number] Name: BJ MÉNDEZ Rep #: [id number] : 1975 Provider: Dr. Monique menezes MD Age/Sex: 49/F Location: [facility] Status: Signed Intake Vital Signs 12/17/24 15:13 12/17/24 15:56 01/22/25 13:11 Height 5 ft 5.2 in 5 ft 5.2 in 5 ft 5.2 in Weight: 276 lb 7 oz 274 lb 6 oz BMI 45.7 45.3 BP 124/84 H 129/70 H Pulse 90 93 Intake Visit Reasons: 4 WK F/U *Per CB Director Digital Required: No Is patient in pain?: No Allergies No Known Allergies Allergy (Verified 01/22/25 13:06) Medications ???Medication ???Instructions ???Recorded ???Confirmed ???Type fluoxetine 40 mg capsule 40 mg PO QDAY 08/13/24 01/22/25 Hi story tirzepatide (weight loss) 2.5 2.5 mg (0.5 mL) subcut QWEEK #2 mL 09/11/25 09/11/25 Rx mg/0.5 mL subcutaneous pen injector (Zepbound) Last Menstrual Period: 07/23/22 Zika: Zika virus screening: Negative : No Have you fallen in the past year?: No PFSH PFSH Medical History Diastolic blood pressure 90 mm Hg or higher BMI 45.0-49.9, adult Hyperlipemia Tachycardia Surgical History S/P S/P knee surgery S/P tonsillectomy S/P cholecystectomy S/P shoulder surgery Family History Grandmother , age 31 Cancer Social History number of children: 3 current occupational status: employed 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 struggling with weight loss. 2 lbs down but with significant effort tracking, reduced appetite, exercisig with personal driver, and cravings reduced. very frustrated. see weight management questionnaire answers for additional HPI details. all information was reviewed with the patient and confirmed, relevant counseling provided, and any changes to treatment plan made. Female Reproductive History Last Menstrual Period: 07/23/22 Menopausal Symptoms: Yes difficulty concentrating ROS Const Reports as per HPI, Reports difficulty sleeping, Denies excessive sweating, Denies fatigue (new onset severe) and Denies fever(s) Eyes Denies change in vision and Denies diplopia ENT Denies dizziness Card Denies chest pain, Denies dyspnea, Denies dyspnea on exertion, Denies palpitations and Reports rapid heart rate Resp Denies dyspnea and Denies dyspnea on exertion GI Reports as per HPI, Denies abdominal pain and Denies constipation Musc Denies numbness Neuro No confusion, No dizziness and No numbness Psych Denies confusion, Reports depression (improved), Reports difficulty concentrating, Denies homicidal ideation, Denies mood swings and Denies suicidal ideation Endo Denies excessive sweating, Denies fatigue (new onset severe), Denies palpitations and Reports other (denies symptoms of hypoglycemia) Exam Const General: cooperative, healthy appearing, comfortable and no acute distress Orientation: alert HENMT Head: normal to inspection and normocephalic Eyes General: appearance normal, both eyes and all related structures Neck Thyroid: thyroid normal Resp Effort Inspection: normal respiratory effort Auscultation: clear to auscultation bilaterally Cardio Rate: tachycardic Rhythm: regular rhythm Heart Sounds: S1 normal and S2 normal Musc Other: gross motor intact no deficits, full bilateral strength Skin General: no rashes or lesions noted Neuro Motor: muscle tone normal throughout Extrem General: no pedal edema Assessment and Plan Assessment and Plan (1) Metabolic syndrome: Status: Acute Comment: weight management program, nutrition consult, ordered zepbound (2) High cholesterol: Status: Acute Comment: pcp referral, started on statin, recommend 5-10% weight loss. (3) Depression: Status: Acute Comment: managed through PCP; Prozac Plan: Continue counseling; management through PCP. She has bumped herself up to 40mg dosing. This may cause resistance to weight loss. (4) Obesity, morbid, BMI 40.0-49.9: Status: Acute Comment: - 287 Initial goal- 5% weight reduction within 3 months of nutritional and medication intervention recommendations. s/p nutrition, pulmonary and cardiology consult done, labs reviewed, EKG most recent normal (5) Ot (more content not included)... Normal [facility] Lunchroom Supervisor Office Visit Reporton 12-17-2024 Lunchroom Supervisor Office Visit Report [facility] [address], [address] [place] [address] OFFICE VISIT Date of Service: 12/17/24 MR#: [id number] Acct: [id number] Name: HONEYBJ BERGERON Rep #: [id number] : 1975 Provider: SORAYA Ventura Age/Sex: 49/F Location: [facility] Status: Signed Intake Vital Signs 11/18/24 13:16 12/17/24 15:13 Height 5 ft 5.2 in 5 ft 5.2 in Weight: 276 lb 276 lb 7 oz BMI 45.6 45.7 BP 135/82 H 124/84 H Blood Pressure Location Lt brachial Position Sitting Respiration 18 Pulse 84 90 Pulse Source Monitor Intake Visit Reasons: 4wk FU *per CB Director Digital Required: No Is patient in pain?: No Allergies No Known Allergies Allergy (Verified 12/17/24 15:11) Medications ???Medication ???Instructions ???Recorded ???Confirmed ???Type topiramate 50 mg tablet 50 mg PO BID #60 tabs 07/10/2411/05 Rx fluoxetine 40 mg capsule 40 mg PO QDAY 08/13/24 12/17/24 Hi story phentermine 37.5 mg tablet 37.5 mg PO QDAY #30 tabs 12/17/24 12/17/24 Rx (Adipex-P) Last Menstrual Period: 07/23/22 Zika: Zika virus screening: Negative : No Have you fallen in the past year?: No PFSH PFSH Medical History Diastolic blood pressure 90 mm Hg or higher BMI 45.0-49.9, adult Hyperlipemia Tachycardia Surgical History S/P S/P knee surgery S/P tonsillectomy S/P cholecystectomy S/P shoulder surgery Family History Grandmother , age 31 Cancer Social History number of children: 3 current occupational status: employed 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 She recently tore her meniscus; this has been a set back and has limited her exercise. She otherwise has been taking phentermine 1/2 tab; has not noticed much difference while on this. Denies any side effects. Female Reproductive History Last Menstrual Period: 07/23/22 Menopausal Symptoms: Yes difficulty concentrating ROS Const Reports as per HPI, Reports difficulty sleeping, Denies excessive sweating, Denies fatigue (new onset severe) and Denies fever(s) Eyes Denies change in vision and Denies diplopia ENT Denies dizziness Card Denies chest pain, Denies dyspnea, Denies dyspnea on exertion, Denies palpitations and Reports rapid heart rate Resp Denies dyspnea and Denies dyspnea on exertion GI Reports as per HPI, Denies abdominal pain and Denies constipation Musc Denies numbness Neuro No confusion, No dizziness and No numbness Psych Denies confusion, Reports depression (improved), Reports difficulty concentrating, Denies homicidal ideation, Denies mood swings and Denies suicidal ideation Endo Denies excessive sweating, Denies fatigue (new onset severe), Denies palpitations and Reports other (denies symptoms of hypoglycemia) Exam Const General: cooperative, healthy appearing, comfortable and no acute distress Orientation: alert HENMT Head: normal to inspection and normocephalic Eyes General: appearance normal, both eyes and all related structures Neck Thyroid: thyroid normal Resp Effort Inspection: normal respiratory effort Auscultation: clear to auscultation bilaterally Cardio Rate: tachycardic Rhythm: regular rhythm Heart Sounds: S1 normal and S2 normal Musc Other: gross motor intact no deficits, full bilateral strength Skin General: no rashes or lesions noted Neuro Motor: muscle tone normal throughout Extrem General: no pedal edema Assessment and Plan Assessment and Plan (1) Metabolic syndrome: Status: Acute Comment: weight management program, nutrition consult, ozempic ordered- not covered. (2) High cholesterol: Status: Acute Comment: pcp referral, started on statin, recommend 5-10% weight loss. (3) Depression: Status: Acute Comment: managed through PCP; Prozac Plan: Continue counseling; management through PCP. She has bumped herself up to 40mg dosing. This may cause resistance to weight loss. (4) Obesity, morbid, BMI 40.0-49.9: Status: Acute Comment: SW- 287 Initial goal- 5% weight reduction within 3 months of nutritional and medication intervention recommendations. s/p nutrition, pulmonary and cardiology consult done, labs reviewed, EKG most recent normal (5) Other obesity: Status: Acute Comment: Nutri (more content not included)... Normal [facility] Relevant diagnostic tests/la boratory data Narrativeon 12-08-2024 Fall risk assessment no [employer] Work Phone: MEDS REVIEW Documentation of cur rent medications (procedure) [employer] Work Phone: MEDS REVIEWD Medications reviewed with changes [employer]. Work Phone: Cardiology Visit Reporton Cardiology Visit Report [facility] [address] [place] [address] OFFICE VISIT Date of Service: 11/18/24 MR#: [id number] Acct: [id number] Name: BJ MÉNDEZ Rep #: [id number] : 1975 Provider: SORAYA greene Age/Sex: 49/F Location: [facility] Status: Signed HPI HPI History of Present Illness Details: This is a 49-year-old lady who presents to the office today for cardiovascular follow-up visit. She has a past medical history significant for obesity, depression and frequent headaches. She was recently noted by her primary care physician to be tachycardic. Subsequently she has been referred to us for evaluation and management. From a cardiac standpoint, the patient is doing well. She denies any palpitations, chest pain, pressure or heaviness. She denies SOB, Orthopnea, and PND. She does not have bleeding issues; no blood in urine, stool, or nosebleeds. She denies any decrease in energy level, myalgias, or claudication. She does not have edema, or sudden weight gain. She denies lightheadedness, dizziness, syncopal or near syncopal episodes, and headaches. Intake Vital Signs 10/14/24 14:39 11/18/24 13:16 Height 5 ft 5.2 in 5 ft 5.2 in Weight: 276 lb BMI 45.6 BP 135/82 H Blood Pressure Location Lt brachial Position Sitting Respiration 18 Pulse 84 Pulse Source Monitor Intake Visit Reasons: 3 M FU Director Digital Required: No Accompanied by: Self Is patient in pain?: No Allergies No Known Allergies Allergy (Verified 11/18/24 13:25) Medications ???Medication ???Instructions ???Recorded ???Confirmed ???Type topiramate 50 mg tablet 50 mg PO BID #60 tabs 07/10/2401/05 Rx fluoxetine 40 mg capsule 40 mg PO QDAY 08/13/24 11/18/24 Hi story Have you fallen in the past year?: No PFSH Medical History Diastolic blood pressure 90 mm Hg or higher BMI 45.0-49.9, adult Hyperlipemia Tachycardia Surgical History S/P S/P knee surgery S/P tonsillectomy S/P cholecystectomy S/P shoulder surgery Family History Grandmother , age 31 Cancer Social History number of children: 3 current occupational status: employed 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 smoker alcohol intake: never substance use type: does not use seatbelt use: always do you feel safe at home: Yes additional social history: - [employer]- [employer] JP Const Const: Negative for fatigue or weakness Eyes Eyes: Negative for change in vision ENT ENT: Negative for dizziness or balance problems Cardio Chest Pain: No Palpitations: No Edema: None Resp Respiratory: Negative for SOB with activity, SOB at rest or SOB orthopnea SOB lying down GI GI: Negative nausea or heartburn Musc Musc: Negative for balance problems Neuro Neuro: Negative for dizziness, lightheadedness, near syncope, syncope or weakness Endo Endo: Negative for fatigue Cardiology Exam Const Appearance: cooperative, comfortable and no acute distress Nutritional Appearance: obese Orientation: alert and oriented x3 Head Head: normal to inspection Ears: hearing grossly normal bilaterally Nose: external nose normal Face and Sinus: face symmetric Eyes General: appearance normal, both eyes and all related structures Eyelids: eyelids normal Conjunctivae: conjunctivae normal Pupils: PERRL and pupil size EOM: EOM intact bilaterally Neck Neck: normal visual inspection and no JVD Carotids: normal carotid upstroke; Negative bruit Chest Chest inspection: normal inspection of the chest and normal respiratory effort Auscultation: Bilateral: Clear to Auscultation Cardio Palpation: normal PMI Rate: regular rate Rhythm: regular rhythm Heart sounds: S1 normal and S2 normal GI GI: normal to inspection, soft and obese Neuro General: patient alert, patient awake and patient oriented x3 Skin Skin: no rashes or lesions noted Extremities Pulses: Normal: Right Posterior Tibial Pulse, Left Posterior Tibial Pulse, Right Radial Pulse and Left Radial Pulse Lower Extremity Edema: None: Bilateral Psych Psychological: normal affect Supplemental Info Supplemental Information CTA Chest w/wo Contrast 12/04/2016: INDICATION: C/O FEVER, SOB, CHEST PAIN SINCE 1030 THIS AM. PT RECENT TRAVEL TO [place]. COMPARISON: None TECHNIQUE: High resolution axial CT imaging of the chest during intravenous contrast administration, CTA protocol. Multiplanar and MIP 3D reformatted images. 100 mL of Isovue-370 were given intraveniously. Radiation dose optimi (more content not included)... Normal [facility] Anion gap in Serum or Plasma Ordered By: Jose Echeverria on 10-17-2024 Anion gap [Moles/Vol] 10 mmol/L 5-15 [facility] BUN/creatinine ratioOrdered By: Jose Echeverria on 10-17-2024 Urea nitrogen/Creatinine [Mass ratio] 24.3 mg/mg High 10-20 [facility] Basic Metabolic Profile (BMP )on 10-17-2024 BUN/CRE 24.3 RATIO High 10-20 [facility] Comment on above: Performed By: #### L 500.2500, L501.9942 ####[facility] [address] [place], [address] Calcium [Mass/Vol] 9.0 mg/dL Normal 7.6-11.0 [facility] Comment on above: Performed By: #### L 500.2500, L501.9985 ####[facility] [address] [place], [address] Chloride [Moles/Vol] 105 mmol/L Normal 98-108 [facility] Comment on above: Performed By: #### L 500.2500, L501.9985 ####[facility] [address] [place], [address] CO2 [Moles/Vol] 23.8 mmol/L Normal 21.0-32.0 [facility] Comment on above: Performed By: #### L 500.2500, L501.9985 ####[facility] [address] [place], [address] Creatinine [Mass/Vol] 0.68 mg/dL Low 0.70-1.20 [facility] Comment on above: Performed By: #### L 500.2500, L501.9985 ####[facility] [address] [place], [address] GAP 10 Normal 5-15 [facility] Comment on above: Performed By: #### L 500.2500, L5.9985 ####[facility] [address] [place], [address] GFR/1.73 sq M.predicted among non-blacks MDRD (S/P/Bld) [Vol rate/Area] 108 mL/min/{1.73_m2} Normal >60 [facility] Comment on above: Result Comment: mL/m in/1.73m2 CKD-EPI Creatinine Equation (2020) Performed By: #### L 500.2500, L501.9985 ####[facility] [address] [place], [address] Glucose [Mass/Vol] 81 mg/dL Normal 70-99 [facility] Comment on above: Performed By: #### L 500.2500, L501.9985 ####[facility] [address] [place], [address] Potassium [Moles/Vol] 3.9 mmol/L Normal 3.3-5.1 [facility] Comment on above: Performed By: #### L 500.2500, L501.9985 ####[facility] [address] [place], [address] Sodium [Moles/Vol] 139 mmol/L Normal 133-145 [facility] Comment on above: Performed By: #### L 500.2500, L501.9985 ####[facility] [address] [place], [place], [id number] Urea nitrogen [Mass/Vol] 17 mg/dL Normal 4-19 [facility] Comment on above: Performed By: #### L 500.2500, L501.9985 ####[facility] [address] [place], [address] Carbon dioxide, total [Moles /volume] in Central venous bloodOrdered By: Jose Echeverria on 10-17-2024 CO2 [Moles/Vol] 23.8 mmol/L 21.0-32.0 [facility] Chloride assayOrdered By: Gregory Echeverria on 10-17-2024 Chloride [Moles/Vol] 105 mmol/L 98-108 [facility] Glomerular filtration rate ( GFR) estimation/1.73 sq m using serum, plasma, or whole bOrdered By: Jose Echeverria on 10-17-2024 GFR/1.73 sq M.predicted among non-blacks MDRD (S/P/Bld) [Vol rate/Area] 108 mL/min/{1.73_m2} >60 [facility] Comment on above: mL/min/1.73m2 CKD-EP I Creatinine Equation (2020) Hemoglobin A1con 10-17-2024 HbA1c (Bld) [Mass fraction] 5.5 % Normal <=5.6 [facility] Comment on above: Result Comment: Norm al < 5.7 % Prediabetic 5.7 - 6.4 % Diabetic >or= 6.5 % Please note range changes. Performed By: #### L 500.2500, L501.9985 ####[facility] [address] [place], [place], [id number] Hemoglobin A1c percentageOrd ered By: Jose Echeverria on 10-17-2024 HbA1c (Bld) [Mass fraction] 5.5 % <5.7 [facility] Comment on above: Normal < 5.7 % Predi abetic 5.7 - 6.4 % Diabetic >or= 6.5 % Please note range changes. Potassium measurement (mass/ volume)Ordered By: Jose Echeverria on 10-17-2024 Potassium (Unsp spec) [Mass/Vol] 3.9 mmol/L 3.3-5.1 [facility] Serum creatinine measurement (mass/volume)Ordered By: Jose Echeverria on 10-17-2024 Creatinine [Mass/Vol] 0.68 mg/dL Low 0.70-1.20 [facility] Serum glucose measurement (m ass/volume)Ordered By: Jose Echeverria on 10-17-2024 Glucose [Mass/Vol] 81 mg/dL 70-99 [facility] Serum or plasma calcium laurence urement (mass/volume)Ordered By: Jose Echeverria on 10-17-2024 Calcium [Mass/Vol] 9.0 mg/dL 7.6-11.0 [facility] Serum or plasma urea nitroge n measurement (mass/volume)Ordered By: Jose Echeverria on 10-17-2024 Urea nitrogen [Mass/Vol] 17 mg/dL 4-19 [facility] Sodium levelOrdered By: Jose Echeverria on 10-17-2024 Sodium [Moles/Vol] 139 mmol/L 133-145 [facility] Lunchroom Supervisor Office Visit Reporton 10-14-2024 Lunchroom Supervisor Office Visit Report [facility], [facility] [address] [place] [address] OFFICE VISIT Date of Service: 10/14/24 MR#: [id number] Acct: [id number] Name: HONEYBJ BERGERON Rep #: [id number] : 1975 Provider: SORAYA Ventura Age/Sex: 48/F Location: [facility] Status: Signed Intake Vital Signs 08/13/24 08:16 10/14/24 14:34 10/14/24 14:39 Height 5 ft 5.2 in 5 ft 5 in 5 ft 5.2 in Weight: 264 lb BMI 43.9 BP 134/85 H Pulse 100 Intake Visit Reasons: med check Director Digital Required: No Is patient in pain?: No Allergies No Known Allergies Allergy (Verified 10/14/24 14:34) Medications ???Medication ???Instructions ???Recorded ???Confirmed ???Type topiramate 50 mg tablet 50 mg PO BID #60 tabs 07/10/2408/05 Rx fluoxetine 40 mg capsule 40 mg PO QDAY 08/13/24 10/14/24 Hi story Last Menstrual Period: 07/23/22 Zika: Zika virus screening: Negative : No Have you fallen in the past year?: No PFSH PFSH Medical History Diastolic blood pressure 90 mm Hg or higher BMI 45.0-49.9, adult Hyperlipemia Tachycardia Surgical History S/P S/P knee surgery S/P tonsillectomy S/P cholecystectomy S/P shoulder surgery Family History Grandmother , age 31 Cancer Social History number of children: 3 current occupational status: employed 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 Seen cardiology-sinus tachy in their office. Was recommended holter monitor; has not had this done yet. Otherwise doing well; feeling well. Monitoring diet. 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 Female Reproductive History Last Menstrual Period: 07/23/22 Menopausal Symptoms: Yes difficulty concentrating ROS Const Reports as per HPI, Reports difficulty sleeping, Denies excessive sweating, Denies fatigue (new onset severe) and Denies fever(s) Eyes Denies change in vision and Denies diplopia ENT Denies dizziness Card Denies chest pain, Denies dyspnea, Denies dyspnea on exertion, Denies palpitations and Reports rapid heart rate Resp Denies dyspnea and Denies dyspnea on exertion GI Reports as per HPI, Denies abdominal pain and Denies constipation Musc Denies numbness Neuro No confusion, No dizziness and No numbness Psych Denies confusion, Reports depression (improved), Reports difficulty concentrating, Denies homicidal ideation, Denies mood swings and Denies suicidal ideation Endo Denies excessive sweating, Denies fatigue (new onset severe), Denies palpitations and Reports other (denies symptoms of hypoglycemia) Exam Const General: cooperative, healthy appearing, comfortable and no acute distress Orientation: alert HENMT Head: normal to inspection and normocephalic Eyes General: appearance normal, both eyes and all related structures Neck Thyroid: thyroid normal Resp Effort Inspection: normal respiratory effort Auscultation: clear to auscultation bilaterally Cardio Rate: tachycardic Rhythm: regular rhythm Heart Sounds: S1 normal and S2 normal Musc Other: gross motor intact no deficits, full bilateral strength Skin General: no rashes or lesions noted Neuro Motor: muscle tone normal throughout Extrem General: no pedal edema Assessment and Plan Assessment and Plan (1) Metabolic syndrome: Status: Acute Comment: weight management program, nutrition consult, ozempic ordered- not covered. (2) High cholesterol: Status: Acute Comment: pcp referral, started on statin, recommend 5-10% weight loss. (3) Depression: Status: Acute Comment: managed through PCP; Prozac Plan: Continue counseling; management through PCP. She has bumped herself up to 40mg dosing. This may cause resistance to weight loss. Confirms no thoughts of harming self or others. (4) Obesity, morbid, BMI 40.0-49.9: Status: Acute Comment: - 287 Initial goal- 5% weight reduction within 3 months of nutritional and medication intervention recommendations. s/p nutrition and pulmonary consult done, labs reviewed, EKG most recent normal (5) Other obesity: Status: Acute Comment: Nutrition plan: Tracking with myfitnesspal; restart tracking; S/P emr trainer consult; not getting enough protein; Incorporating more kolby (more content not included)... Normal [facility] Cardiovascular stress test r eportOrdered By: Sienna James on 09-15-2024 Study report [facility] Cardiovascular Services [address] [place] [address] MR#: [id number] Acct: [id number] Name: BJ MÉNDEZ Rep #: [id number] : 1975 48 From: Sienna James MD Primary Care: Dr. Jose Echeverria MD Status : REG CLI Referring Dr: Jose Echeverria MD Sex: F C Stress Test Report Date: 09/15/2024 Procedure: Exercise tolerance test/imaging study Indications: Tachycardia Consent: Per the patient Procedure: The patient exercised on a Milind protocol for 6 minutes and 27 seconds achievinga peak heart rate of 117 bpm (103% predicted maximal heart rate) with a peak blood pressure 172/84 mmHg and a peak MET capacity of 8.3 METs. The baseline ECG demonstrated normal sinus rhythm. The peak exercise ECG demonstrated sinus tachycardia with no ischemic changes. There were no cardiac dysrhythmias pretest, during exercise, or recovery. The functional capacity was considered average. There was no complaint of chest discomfort during exercise or recovery. The examination was discontinued secondary to target heart rate being achieved and dyspnea. The patient was injected with 14.6 mCi of technetium 99m Cardiolite and subsequently rest SPECT Cardiolite nuclear imaging was obtained in the horizontal long, vertical long, and short axis views. Post-exercise, the patientwas injected with 44.7 mCi of technetium 99m Cardiolite and subsequently stress SPECT Cardiolite nuclear imaging was obtained in the horizontal long, vertical long, and short axis views. A gated Cardiolite study at peak stress was obtained. Rest and stress SPECT Cardiolite nuclear imaging status post realignment, normalization, and attenuation correction, demonstrates the appearance of relative uniform tracer uptake and myocardial perfusion appearing within normal limits. There is end systolic thickening and brightening. The gated Cardiolitestudy demonstrates myocardial thickening and inward wall motion. The reported LVEF is 72%. Impression: 1. Technically adequate (percent predicted maximal heart rate greater than 85%)exercise tolerance test 2. Peak exercise ECG with no ischemic changes 3. There were no cardiac dysrhythmias pretest, during exercise, or recovery 4. Rest and stress SPECT Cardiolite nuclear imaging demonstrate relative uniform tracer uptake and myocardial perfusion appearing within normal limits. 5. The gated Cardiolite study reports an LVEF of 72%. This note was generated with Noemalife software. It may contain incorrectwords, spelling, and punctuation that were not noted in checking the note beforesigning. 09/15/24 0918 Date _ Sienna James MD CC: Dr. Sienna James MD; Dr. Jose Echeverria MD ~ Date Dictated: 09/15/24915 Date Transcribed: 09/15/24915 Special Events Driver: ONI Mathews [facility] Work Phone: Echo Completeon 09-15-2024 Echo Complete [facility] Cardiovascular Services [address] [place] [address] Echo Complete 09/15/24 0849 MR#: [id number] Acct: [id number] Name: BJ MÉNDEZ Rep #: [id number] : 1975 48 From: Sienna James MD Attending Dr: Dr. Sienna James MD Status: REG CLI Ordering Dr: Sienna James MD Date: 09/15/24 Location: [facility] Sex: F C Admitted: Reason For Study Reason For Study: DYSPNEA Procedure This was a 2D Doppler, Color Flow transthoracic echocardiogram. Exam performed in department. Left Ventricle Normal LV size. Mild concentric left ventricular hypertrophy. The LV systolic function is normal. EF is 65 %. Stage 1 diastolic dysfunction. Right Ventricle Normal right ventricle. Atria The left atrium is mildly enlarged. Normal right atrium. Mitral Valve Trivial mitral valve insufficiency. Tricuspid Valve Trivial tricuspid valve insufficiency. Unable to estimate RV systolic pressure due to insufficient tricuspid regurgitant envelope. Aortic Valve Trisinus/trileaflet aortic valve. Pulmonic Valve The pulmonic valve is not well visualized. Great Vessels Normal sized aortic root. Pericardium/Pleural No pericardial effusion. MMode/2D Measurements Calculations LVIDd: 3.9 cm IVSd: 1.3 cm LVOT diam: 2.1 cm LVIDs: 3.1 cm LVPWd: 1.5 cm LVOT area: 3.3 cm2 FS: 22.2 % LAV(MOD-bp): 59.0 ml LVAd ap4: 29.0 cm2 SV(MOD-sp4): 56.0 ml LAV(MOD-bp) Indexed: 26.6 ml/m2 LVLd ap4: 7.5 cm SI(MOD-sp4): 25.2 ml/m2 LAV(MOD-sp2): 58.2 ml EDV(MOD-sp4): 93.1 ml LAV(MOD-sp4): 51.5 ml EDV(sp4-el): 94.7 ml LVAs ap4: 16.3 cm2 LVLs ap4: 5.9 cm ESV(MOD-sp4): 37.2 ml ESV(sp4-el): 38.5 ml EF(MOD-sp4): 60.1 % EF(sp4-el): 59.4 % SV(sp4-el): 56.2 ml LA A4 area: 17.6 cm2 LA dimension(2D): 4.4 cm RA A4 area: 13.6 cm2 Time Measurements MV dec time: 0.09 sec Doppler Measurements Calculations MV E max kiah: 86.4 cm/sec Lat Peak E' Kiah: 8.6 cm/sec Med Peak E' Kiah: 7.7 cm/sec MV A max kiah: 113.9 cm/sec E/E' lat: 10.0 E/E' med: 11.2 MV E/A: 0.76 MV V2 max: 120.6 cm/sec Ao V2 max: 157.8 cm/sec MV max P.8 mmHg MV dec slope: 947.8 cm/sec2 Ao max P.0 mmHg MV V2 mean: 84.9 cm/sec Ao V2 mean: 111.7 cm/sec MV mean P.2 mmHg Ao mean P.6 mmHg MV V2 VTI: 27.1 cm Ao V2 VTI: 32.0 cm AV (velocity ratio): 0.92 MVA(VTI): 3.6 cm2 SO(I,D): 3.0 cm2 SO(V,D): 2.8 cm2 LV V1 max: 135.5 cm/sec SV(LVOT): 97.1 ml PA V2 max: 100.5 cm/sec LV V1 max P.4 mmHg PA V2 mean: 76.3 cm/sec LV V1 mean P.6 mmHg LV V1 mean: 102.4 cm/sec LV V1 VTI: 29.3 cm ECHO/Echo Complete Interpretation Summary Mild concentric left ventricular hypertrophy. The LV systolic function is normal. EF is 65 %. Stage 1 diastolic dysfunction. The left atrium is mildly enlarged. Ordering Physician: Sienna James Referring Physician: Jose Echeverria Performed By: Aisha Piña RCS 09/15/24 1154 Date Sienna James MD CC: Dr. Sienna James MD; Dr. Jose Echeverria MD Date Dictated: 09/15/24 0849 Date Transcribed: 09/15/241153 Special Events Driver: Signed Normal [facility] Echocardiogram study reportO rdered By: Sienna James on 09-15-2024 Study report [facility] Cardiovascular Services [address] [place] [address] Echo Complete 09/15/24 0849 MR#: [id number] Acct: [id number] Name: BJ MÉNDEZ Rep #:[id number] : 1975 48 From: Sienna James MD Attending Dr: Dr. Sienna James MD Status: REG CLI Ordering Dr: Sienna James MD Date: Location: [facility] Sex: F C Admitted: Reason For Study Reason For Study: DYSPNEA Procedure This was a 2D Doppler, Color Flow transthoracic echocardiogram. Exam performed in department. Left Ventricle Normal LV size. Mild concentric left ventricular hypertrophy. The LV systolic function is normal. EF is 65 %. Stage 1 diastolic dysfunction. Right Ventricle Normal right ventricle. Atria The left atrium is mildly enlarged. Normal right atrium. Mitral Valve Trivial mitral valve insufficiency. Tricuspid Valve Trivial tricuspid valve insufficiency. Unable to estimate RV systolic pressure due to insufficient tricuspid regurgitant envelope. Aortic Valve Trisinus/trileaflet aortic valve. Pulmonic Valve The pulmonic valve is not well visualized. Great Vessels Normal sized aortic root. Pericardium/Pleural No pericardial effusion. MMode/2D Measurements & Calculations LVIDd: 3.9 cm IVSd: 1.3 cm LVOT diam: 2.1 cm LVIDs: 3.1 cm LVPWd: 1.5 cm LVOT area: 3.3 cm2 FS: 22.2 % __ LAV(MOD-bp): 59.0 ml LVAd ap4: 29.0 cm2 SV(MOD-sp4): 56.0 ml LAV(MOD-bp) Indexed: 26.6 ml/m2 LVLd ap4: 7.5 cm SI(MOD-sp4): 25.2 ml/m2 LAV(MOD-sp2): 58.2 ml EDV(MOD-sp4): 93.1 ml LAV(MOD-sp4): 51.5 ml EDV(sp4-el): 94.7 ml LVAs ap4: 16.3 cm2 LVLs ap4: 5.9 cm ESV(MOD-sp4): 37.2 ml ESV(sp4-el): 38.5 ml EF(MOD-sp4): 60.1 % EF(sp4-el): 59.4 % __ SV(sp4-el): 56.2 ml LA A4 area: 17.6 cm2 LA dimension(2D): 4.4 cm __ RA A4 area: 13.6 cm2 Time Measurements MV dec time: 0.09 sec Doppler Measurements & Calculations MV E max kiah: 86.4 cm/sec Lat Peak E' Kiah: 8.6 cm/sec Med Peak E' Kiah: 7.7 cm/sec MV A max kiah: 113.9 cm/sec E/E' lat: 10.0 E/E' med: 11.2 MV E/A: 0.76 MV V2 max: 120.6 cm/sec Ao V2 max: 157.8 cm/sec MV max P.8 mmHg MV dec slope: 947.8 cm/sec2 Ao max P.0 mmHg MV V2 mean: 84.9 cm/sec Ao V2 mean: 111.7 cm/sec MV mean P.2 mmHg Ao mean P.6 mmHg MV V2 VTI: 27.1 cm Ao V2 VTI: 32.0 cm AV (velocity ratio): 0.92 MVA(VTI): 3.6 cm2 SO(I,D): 3.0 cm2 SO(V,D): 2.8 cm2 __ LV V1 max: 135.5 cm/sec SV(LVOT): 97.1 ml PA V2 max: 100.5 cm/sec LV V1 max P.4 mmHg PA V2 mean: 76.3 cm/sec LV V1 mean P.6 mmHg LV V1 mean: 102.4 cm/sec LV V1 VTI: 29.3 cm ECHO/Echo Complete Interpretation Summary Mild concentric left ventricular hypertrophy. The LV systolic function is normal. EF is 65 %. Stage 1 diastolic dysfunction. The left atrium is mildly enlarged. Ordering Physician: Sienna James Referring Physician: Jose Echeverria Performed By: Aisha Piña RCS 09/15/24 1154 Date _ Sienna James MD CC: Dr. Sienna James MD; Dr. Jose Echeverria MD ~ Date Dictated: 09/15/24 0849 Date Transcribed: 09/15/24 1154 Special Events Driver: Signed [facility] Work Phone: Stress Reporton 09-15-2024 Stress Report [facility] Cardiovascular Services [address] [place] [address] MR#: [id number] Acct: [id number] Name: BJ MÉNDEZ Rep #: [id number] : 1975 48 From: Sienna James MD Primary Care: Dr. Jose Echeverria MD Status: REG CLI Referring Dr: Jose Echeverria MD Sex: F C Stress Test Report Date: 09/15/2024 Procedure: Exercise tolerance test/imaging study Indications: Tachycardia Consent: Per the patient Procedure: The patient exercised on a Milind protocol for 6 minutes and 27 seconds achieving a peak heart rate of 117 bpm (103% predicted maximal heart rate) with a peak blood pressure 172/84 mmHg and a peak MET capacity of 8.3 METs. The baseline ECG demonstrated normal sinus rhythm. The peak exercise ECG demonstrated sinus tachycardia with no ischemic changes. There were no cardiac dysrhythmias pretest, during exercise, or recovery. The functional capacity was considered average. There was no complaint of chest discomfort during exercise or recovery. The examination was discontinued secondary to target heart rate being achieved and dyspnea. The patient was injected with 14.6 mCi of technetium 99m Cardiolite and subsequently rest SPECT Cardiolite nuclear imaging was obtained in the horizontal long, vertical long, and short axis views. Post-exercise, the patient was injected with 44.7 mCi of technetium 99m Cardiolite and subsequently stress SPECT Cardiolite nuclear imaging was obtained in the horizontal long, vertical long, and short axis views. A gated Cardiolite study at peak stress was obtained. Rest and stress SPECT Cardiolite nuclear imaging status post realignment, normalization, and attenuation correction, demonstrates the appearance of relative uniform tracer uptake and myocardial perfusion appearing within normal limits. There is end systolic thickening and brightening. The gated Cardiolite study demonstrates myocardial thickening and inward wall motion. The reported LVEF is 72%. Impression: 1. Technically adequate (percent predicted maximal heart rate greater than 85%) exercise tolerance test 2. Peak exercise ECG with no ischemic changes 3. There were no cardiac dysrhythmias pretest, during exercise, or recovery 4. Rest and stress SPECT Cardiolite nuclear imaging demonstrate relative uniform tracer uptake and myocardial perfusion appearing within normal limits. 5. The gated Cardiolite study reports an LVEF of 72%. This note was generated with WorkshopLiveation software. It may contain incorrect words, spelling, and punctuation that were not noted in checking the note before signing. 09/15/24917 Date Sienna James MD CC: Dr. Sienna James MD; Dr. Jose Echeverria MD Date Dictated: 09/15/24915 Date Transcribed: 05/05/25 0916 Special Events Driver: AR Signed Normal [facility] 12 Lead EKG performed by [facility] on 08-13-2024 12 Lead EKG performed by [facility] [address] [place] [address] 12 Lead EKG performed by [facility] 08/13/24814 MR#: [id number] Acct: [id number] Name: BJ MÉNDEZ Rep #: [id number] : 1975 48 From: Sienna James MD Attending Dr: Dr. Sienna James MD Status: DEP AMB Ordering Dr: Sienna James MD Date: 08/13/24 Location: [facility] Sex: F C Admitted: [facility]/12 Lead EKG performed by [facility] ECG Report Interpretation Sinus Tachycardia -Left atrial enlargement. BORDERLINEElectronically signed on 10/08/2024 at 13:[address] Sienna James Lindsey Software Version [id number] 10/08/24 1332 Date Sienna James MD CC: Dr. Jose Echeverria MD Date Dictated: 08/13/24814 Date Transcribed: 08/13/24814 Special Events Driver: AR Signed Normal [facility] Cardiology Visit Reporton Cardiology Visit Report [facility] [address] [place] [address] OFFICE VISIT Date of Service: 08/13/24 MR#: [id number] Acct: [id number] Name: BJ MÉNDEZ Rep #: [id number] : 1975 Provider: Dr. Sienna James MD Age/Sex: 48/F Location: [facility] Status: Signed HPI HPI History of Present Illness Details: This lady has past medical history significant for obesity, depression and frequent headaches. She was recently noted by her primary care physician to be tachycardic. Subsequently she has been referred to us for evaluation and management. Per patient, she occasionally notices her heart rate to be on the higher side. No lightheadedness or dizziness. No syncope or presyncope. Denies any palpitations. Occasional chest tightness whenever she is stressed. For the last year or so, she has been getting increasingly short of breath with exertion. Denies orthopnea or PND. No ankle edema. Patient has history of bad headaches. She frequently uses Excedrin with caffeine for it. Denies EtOH abuse. No illicit substance abuse. Intake Vital Signs 07/16/24 14:05 08/13/24 08:16 Height 5 ft 5.2 in 5 ft 5.2 in Weight: 263 lb 4 oz 263 lb BMI 43.5 43.4 BP 108/79 124/58 H Blood Pressure Location Lt brachial Position Sitting Respiration 18 Pulse 98 109 H Pulse Source Monitor NIBP Intake Visit Reasons: BP HIGH, FAST HEART RATE(KRYSTA) Director Digital Required: No Accompanied by: Self Is patient in pain?: No Allergies No Known Allergies Allergy (Verified 08/13/24 08:56) Medications ???Medication ???Instructions ???Recorded ???Confirmed ???Type topiramate 50 mg tablet 50 mg PO BID #60 tabs 07/10/24 Rx fluoxetine 40 mg capsule 40 mg PO QDAY 08/13/24 08/13/24 Hi story Have you fallen in the past year?: No PFSH Medical History BMI 45.0-49.9, adult Diastolic blood pressure 90 mm Hg or higher Hyperlipemia Tachycardia Surgical History S/P S/P cholecystectomy S/P knee surgery S/P shoulder surgery S/P tonsillectomy Family History Grandmother , age 31 Cancer Social History number of children: 3 current occupational status: employed 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 smoker alcohol intake: never substance use type: does not use seatbelt use: always do you feel safe at home: Yes additional social history: - [employer]- Teacher [employer] Const Const: Positive for fatigue and headache(s); Negative for weakness or weight gain ENT ENT: Positive for headache(s) and balance problems; Negative for dizziness or Nosebleed/epistaxis Cardio Chest Pain: No Character: tightness (pt attributes to anxiety) Palpitations: No Edema: None Muscle aches with walking: None Resp Respiratory: Positive for SOB with activity and SOB at rest; Negative for SOB orthopnea SOB lying down GI GI: Negative nausea, vomiting or heartburn Musc Musc: Positive for joint pain (bilateral knees) and balance problems; Negative for muscle aches/ myalgia or muscle weakness Neuro Neuro: Positive for headache(s); Negative for dizziness, lightheadedness, near syncope, syncope or weakness Endo Endo: Positive for fatigue Psych Psych: Positive for anxiety Cardiology Exam Const Appearance: comfortable and no acute distress Nutritional Appearance: obese Neck Neck: no JVD Carotids: Negative bruit Chest Auscultation: Bilateral: Clear to Auscultation Cardio Rate: regular rate Rhythm: regular rhythm Heart sounds: S1 normal and S2 normal GI GI: obese Neuro General: patient alert, patient awake and patient oriented x3 Extremities Lower Extremity Edema: None: Bilateral Supplemental Info Supplemental Information CTA Chest w/wo Contrast 12/04/2016: INDICATION: C/O FEVER, SOB, CHEST PAIN SINCE 1030 THIS AM. PT RECENT TRAVEL TO [place]. COMPARISON: None TECHNIQUE: High resolution axial CT imaging of the chest during intravenous contrast administration, CTA protocol. Multiplanar and MIP 3D reformatted images. 100 mL of Isovue-370 were given intraveniously. Radiation dose optimization technique applied. FINDINGS: Examination is limited by patient breathing motion and suboptimal bolus timing. There is no evidence of central or proximal segmental pulmonary arterial filling defect to suggest PE. Subsegmental vessels cannot be assessed. There is an ovoid shaped 1 x 1.3 cm density seen associated with the left major fissure, possibly a lymph node. Follow-up as clinically warranted. There is otherwise no eviden (more content not included)... Normal [facility] TSH DL <= 0.005 mIU/L QnOrde red By: Sienna James on 08-13-2024 Thyroid Stimulating Hormone (TSH) 2.270 uIU/mL 0.300-4.200 [facility] TSH Qn 2.270 uIU/mL 0.300-4.200 [facility] Thyroid Stim Hormone (TSH)on 08-13-2024 TSH 2.270 uIU/mL Normal 0.300-4.200 [facility] Comment on above: Performed By: #### L [phone] ####[facility] [id number] [place], [address] Office Visit Reporton [address] [facility] Services [address] [place] [address] OFFICE VISIT Date of Service: 07/16/24 MR#: [id number] Acct: [id number] Patient: BJ MÉNDEZ Rep #: [id number] : 1975 Provider: SORAYA Ventura Age/Sex: 48/F Location: [facility] Status: Signed Intake Vital Signs 07/10/24 10:34 07/16/24 14:05 Height 5 ft 5.2 in 5 ft 5.2 in Weight: 260 lb 5 oz 263 lb 4 oz BMI 43.0 43.5 BP 114/68 108/79 Pulse 106 H 98 Pulse Source Monitor Intake Visit Reasons: 1WK CK Chief Complaint: 1wk Weight/Med Check Director Digital Required: No Is patient in pain?: No Allergies No Known Allergies Allergy (Verified 07/16/24 14:07) Medications ???Medication ???Instructions ???Recorded ???Confirmed ???Type fluoxetine 20 mg tablet 20 mg PO QDAY 03/13/24 07/16/24 Hi story topiramate 50 mg tablet 50 mg PO BID #60 tabs 07/10/24 Rx Questionnaires Weight Management Follow-Up What nutritional plan/diet are you following?: Writing it down How are you tracking your food intake?: low intake 5 On average, how many days a week are you recording your food intake?: 6 How many days a week are you staying within your recommended intake goals?: 6 What is your current weekly exercise?: 3-4 On a scale of 1-10, how difficult is it to follow your current weight management plan?: 7 What are you struggling most with right now in following your weight loss plan?: N/A Are there any changes we need to make to your current plan right now?: Med changes, fast heart beat, headaches,exhausted Side Effects: No Chest Pain, No Palpitations, Yes Increased Heart Rate, No Irregular Heart Rhythm, No Increased Blood Pressure, No Change in breathing patterns, No Kidney Stones, No Change in vision, Yes Insomnia, No Difficulty with memory/speech, No Numbness in hands/feet, No New onset severe fatigue, No Nausea/vomiting, No Constipation and No Depressed mood Are there any side effects interfering with quality of life enough you would want to stop medication?: No What's improved for you since losing weight and making your lifestyle change?: N/A Is there anything else we can help you with on your weight loss journey today?: N/A 07/16/24 1621 Date Loreta Zaidi Signature: Date (if applicable) CC: Normal [facility] Lunchroom Supervisor Office Visit Reporton 07-10-2024 Lunchroom Supervisor Office Visit Report [facility] [address], [address] [place] [address] OFFICE VISIT Date of Service: 07/10/24 MR#: [id number] Acct: [id number] Name: BJ MÉNDEZ Rep #: [id number] : 1975 Provider: SORAYA Ventura Age/Sex: 48/F Location: [facility] Status: Signed Intake Vital Signs 06/12/24 15:44 07/10/24 10:34 Height 5 ft 5.2 in 5 ft 5.2 in Weight: 260 lb 5 oz BMI 43.0 BP 114/68 Pulse 106 H Intake Visit Reasons: 4 WK MED CHECK Director Digital Required: No Is patient in pain?: No Allergies No Known Allergies Allergy (Verified 07/10/24 10:34) Medications ???Medication ???Instructions ???Recorded ???Confirmed ???Type fluoxetine 20 mg tablet 20 mg PO QDAY 03/13/24 07/10/24 Hi story topiramate 50 mg tablet 50 mg PO BID #60 tabs 07/10/24 Rx Last Menstrual Period: 07/23/22 PFSH PFSH Medical History Tachycardia Surgical History S/P S/P knee surgery S/P tonsillectomy S/P cholecystectomy S/P shoulder surgery Family History Grandmother , age 31 Cancer Social History number of children: 3 current occupational status: employed 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 She recently has had some personal stress going on with her son having surgery. She has noted feeling her heart racin g but unsure if this is related to anxiety or being on phentermine. She is only taking half tab and therefore had extra's at home; therefore not needing a refill. She has not been taking her topiramate for the past 4 weeks. She is out of this. She has incorporated another protein shake as well as a meal for lunch time. Still juggling 3 jobs. Female Reproductive History Last Menstrual Period: 07/23/22 Menopausal Symptoms: Yes difficulty concentrating ROS Const Reports as per HPI, Reports difficulty sleeping, Denies excessive sweating, Denies fatigue (new onset severe) and Denies fever(s) Eyes Denies change in vision and Denies diplopia ENT Denies dizziness Card Denies chest pain, Denies dyspnea, Denies dyspnea on exertion, Denies palpitations and Reports rapid heart rate Resp Denies dyspnea and Denies dyspnea on exertion GI Reports as per HPI, Denies abdominal pain and Denies constipation Musc Denies numbness Neuro No confusion, No dizziness and No numbness Psych Denies confusion, Reports depression (improved), Reports difficulty concentrating, Denies homicidal ideation, Denies mood swings and Denies suicidal ideation Endo Denies excessive sweating, Denies fatigue (new onset severe), Denies palpitations and Reports other (denies symptoms of hypoglycemia) Exam Const General: cooperative, healthy appearing, comfortable and no acute distress Orientation: alert HENMT Head: normal to inspection and normocephalic Eyes General: appearance normal, both eyes and all related structures Neck Thyroid: thyroid normal Resp Effort Inspection: normal respiratory effort Auscultation: clear to auscultation bilaterally Cardio Rate: tachycardic Rhythm: regular rhythm Heart Sounds: S1 normal and S2 normal Musc Other: gross motor intact no deficits, full bilateral strength Skin General: no rashes or lesions noted Neuro Motor: muscle tone normal throughout Extrem General: no pedal edema Assessment and Plan Assessment and Plan (1) Metabolic syndrome: Status: Acute Comment: weight management program, nutrition consult, ozempic ordered- not covered. (2) High cholesterol: Status: Acute Comment: pcp referral, started on statin, recommend 5-10% weight loss. (3) Depression: Status: Acute Comment: managed through PCP; Prozac Plan: Continue counseling; management through PCP. She has bumped herself up to 40mg dosing. This may cause resistance to weight loss. Confirms no thoughts of harming self or others. (4) Obesity, morbid, BMI 40.0-49.9: Status: Acute Comment: SW- 287 Currently 260 lbs. Initial goal- 5% weight reduction within 3 months of nutritional and medication intervention recommendations. s/p nutrition and pulmonary consult done, labs reviewed, EKG most recent normal (5) Other obesity: Status: Acute Comment: Nutrition plan: Tracking with myfitnesspal; restart tracking; S/P emr trainer consult; not getting enough protein; Incorporating mo (more content not included)... 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 Office Visit Report [facility], [address] [place] [address] OFFICE VISIT Date of Service: 06/12/24 MR#: [id number] Acct: [id number] Name: BJ MÉNDEZ Rep #: [id number] : 1975 Provider: SORAYA Ventura Age/Sex: 48/F Location: [facility] Status: Signed Intake Vital Signs 03/13/24 15:30 04/16/24 08:40 06/12/24 15:38 06/12/24 15:44 Height 5 ft 2.5 in 5 ft 5.2 in 5 ft 5 in 5 ft 5.2 in Weight: 267 lb 2 oz 262 lb 4 oz 265 lb 4 oz BMI 48.0 43.3 44.1 BP 128/83 H 110/65 113/63 Pulse 96 95 Intake Visit Reasons: 12 WK F/U WM CK Director Digital Required: No Is patient in pain?: No Allergies No Known Allergies Allergy (Verified 06/12/24 15:37) Medications ???Medication ???Instructions ???Recorded ???Confirmed ???Type topiramate 50 mg tablet 50 mg PO BID #60 tabs 10/04/23 Rx fluoxetine 20 mg tablet 20 mg PO QDAY 03/13/24 06/12/24 Hi story Last Menstrual Period: 07/23/22 PFSH PFSH Medical History Tachycardia Surgical History S/P S/P knee surgery S/P tonsillectomy S/P cholecystectomy S/P shoulder surgery Family History Grandmother , age 31 Cancer Social History number of children: 3 current occupational status: employed 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 Reports she has had a stressful month at school. She is unable to eat during school hours due to the business of it. She denies side effects from medications. Only taking topamax once a day. Getting her steps in. Female Reproductive History Last Menstrual Period: 07/23/22 Menopausal Symptoms: Yes difficulty concentrating ROS Const Reports as per HPI, Reports difficulty sleeping, Denies excessive sweating, Denies fatigue (new onset severe) and Denies fever(s) Eyes Denies change in vision and Denies diplopia ENT Denies dizziness Card Denies chest pain, Denies dyspnea, Denies dyspnea on exertion, Denies palpitations and Reports rapid heart rate Resp Denies dyspnea and Denies dyspnea on exertion GI Reports as per HPI, Denies abdominal pain and Denies constipation Musc Denies numbness Neuro No confusion, No dizziness and No numbness Psych Denies confusion, Reports depression (improved), Reports difficulty concentrating, Denies homicidal ideation, Denies mood swings and Denies suicidal ideation Endo Denies excessive sweating, Denies fatigue (new onset severe), Denies palpitations and Reports other (denies symptoms of hypoglycemia) Exam Const General: cooperative, healthy appearing, comfortable and no acute distress Orientation: alert HENMT Head: normal to inspection and normocephalic Eyes General: appearance normal, both eyes and all related structures Resp Effort Inspection: normal respiratory effort Auscultation: clear to auscultation bilaterally Cardio Rate: regular rate Rhythm: regular rhythm Heart Sounds: S1 normal and S2 normal Musc Other: gross motor intact no deficits, full bilateral strength Skin General: no rashes or lesions noted Neuro Motor: muscle tone normal throughout Extrem General: no pedal edema Assessment and Plan Assessment and Plan (1) Metabolic syndrome: Status: Acute Comment: weight management program, nutrition consult, ozempic ordered- not covered. (2) High cholesterol: Status: Acute Comment: pcp referral, started on statin, recommend 5-10% weight loss. (3) Depression: Status: Acute Comment: managed through PCP; Prozac recently increased to 60mg through PCP. Plan: Continue counseling; management through PCP. Bumped down to 20mg dosing and doing well. This may cause resistance to weight loss. Confirms no thoughts of harming self or others. (4) Obesity, morbid, BMI 40.0-49.9: Status: Acute Comment: SW- 287 Currently 265 lbs. Initial goal- 5% weight reduction within 3 months of nutritional and medication intervention recommendations. s/p nutrition and pulmonary consult done, labs reviewed, EKG most recent normal (5) Other obesity: Status: Acute Comment: Nutrition plan: Tracking with myfitnesspal; restart tracking; S/P emr trainer consult; not getting enough protein; not eating much else. Needs to incorporate more food into her day. Recommend incorporating vegetables/fruit. Balance to diet. Medication plan: decre (more content not included)... Normal [facility] Office Visit Reporton 2023 Office Visit Report [facility] [address] [place] [address] OFFICE VISIT Date of Service: 04/16/24 MR#: [id number] Acct: [id number] Patient: BJ MÉNDEZ Rep #: [id number] : 1975 Provider: SORAYA Ventura Age/Sex: 48/F Location: [facility] Status: Signed Intake Vital Signs 03/13/24 15:30 04/16/24 08:40 Height 5 ft 2.5 in 5 ft 5.2 in Weight: 267 lb 2 oz 262 lb 4 oz BMI 48.0 43.3 BP 128/83 H 110/65 Pulse 96 Intake Visit Reasons: 4 wk med check Chief Complaint: wm fu Director Digital Required: No Is patient in pain?: No Allergies No Known Allergies Allergy (Verified 04/16/24 08:40) Medications ???Medication ???Instructions ???Recorded ???Confirmed ???Type topiramate 50 mg tablet 50 mg PO BID #60 tabs 10/04/23 04/16/24 Rx fluoxetine 20 mg tablet 20 mg PO QDAY 03/13/24 04/16/24 History phentermine 37.5 mg tablet 37.5 mg PO QDAY #30 tabs 04/16/24 04/16/24 Rx (Adipex-P) Is last menstrual period known: No Post menopausal: No Patient : No Have you fallen in the past year?: No Questionnaires Weight Management Follow-Up What nutritional plan/diet are you following?: Low Calorie How are you tracking your food intake?: My Net Diary and My FitnessPal On average, how many days a week are you recording your food intake?: 5 How many days a week are you staying within your recommended intake goals?: 7 What is your current weekly exercise?: walking 8,000 steps a day On a scale of 1-10, how difficult is it to follow your current weight management plan?: 2 What are you struggling most with right now in following your weight loss plan?: finding time to get steps in Are there any changes we need to make to your current plan right now?: no Side Effects: No Chest Pain, No Palpitations, No Increased Heart Rate, No Irregular Heart Rhythm, No Increased Blood Pressure, No Change in breathing patterns, No Kidney Stones, No Change in vision, No Insomnia, No Difficulty with memory/speech, No Numbness in hands/feet, No New onset severe fatigue, No Nausea/vomiting, No Constipation and No Depressed mood Are there any side effects interfering with quality of life enough you would want to stop medication?: No What's improved for you since losing weight and making your lifestyle change?: Clothes fitting better and wearing clothes I haven't in years Is there anything else we can help you with on your weight loss journey today?: just encouragement. 04/16/24919 Date Loreta Zaidi Signature: Date (if applicable) CC: Josh [facility] 02-24-2024 [facility] Office Visit ([facility] ) -- BJ MÉNDEZ ([id number]) 1975 F Date Time Provider Department 02/24/24 9:00 AM HAMLET HOFFMAN [facility] During your visit today, we recorded the following information about you: Temperature Pulse Respiration Blood pressure 97.1 degrees 112/minute 16/minute 124/80 Weight 120.8 kg Hamlet Hoffman APRN.CNP 02/24/2024 9:19 AM Signed Subjective HPI HPI Bj Méndez is a 48 year old female who presents today for CC of cough, chest congestion, st. This started 3 days ago. Has tried otc medication for relief. Symptoms are worsened by nothing. Risk factors multiple pneumonia exposures at home. nonsmoker. .Patient presents with: Chest Congestion: cough x 3 days PAST MEDICAL HISTORY Diagnosis Date Backache, unspecified Depressive disorder, not elsewhere classified Female infertility of other specified origin Irritable bowel syndrome Unspecified closed fracture of ankle Right PAST SURGICAL HISTORY Procedure Laterality Date DELIVERY ONLY 04/2006 , low cervical FNA WITH IMAGING Right 04/29/15 U/S FNA upper mid right breast KNEE SURGERY HX Right 10/2016 miniscus repair LAPS SURG CHOLECYSTECTOMY W/CHOLANGIOGRAPHY 11-21-10 PAST SURGICAL HISTORY OF 1999 labral tear repair right shoulder PAST SURGICAL HISTORY OF 12/29 02/28 right knee surgery TONSILLECTOMY AND ADENOIDECTOMY Tonsil/adenoidectomy ALLERGIES Latex MEDICATIONS FLUoxetine (PROZAC) 40 mg capsule Take 1 capsule by mouth once daily. aspirin/acetaminophen/caff eine (EXCEDRIN MIGRAINE ORAL) Take by mouth every 4 hours as needed. rizatriptan (MAXALT) 10 mg tablet 1 tab at earliest sign of migraine. May repeat once in 2 hours if needed. Give max allowed per insurance. topiramate (TOPAMAX) 100 mg tablet Take 1 tablet by mouth every evening. doxycycline monohydrate 100 mg tablet Take 1 tablet by mouth two times a day for 7 days. MYFEMBREE 40-1-0.5 mg tablet Take 1 tablet by mouth every afternoon. (Patient not taking: Reported on 02/24/2024) OZEMPIC 0.25 mg or 0.5 mg (2 mg/3 mL) pen INJECT 0.25 MG SUBCUTANEOUSLY EVERY WEEK FOR 4 WEEKS (Patient not taking: Reported on 07/22/2023) norethindrone (AYGESTIN) 5 mg tablet Take one tablet TID PO (Patient not taking: Reported on 02/24/2024) clobetasol (TEMOVATE) 0.05 % cream Apply to affected area 2x/day for 2 weeks, then 1x/day for a week, than 1-3x/week for maintenance. (Patient not taking: Reported on 02/24/2024) FAMILY HISTORY Problem Relation Age of Onset Hypertension Mother Hypertension Father Diabetes Maternal Grandfather Diabetes Paternal Grandfather Heart Paternal Grandfather Diabetes Paternal Grandmother heart, stroke Heart Paternal Grandmother Stroke Paternal Grandmother Colon Cancer Maternal Grandmother stomach/ colon Diabetes Maternal Grandmother Migraines Son Social History Tobacco Use Smoking status: Never Smokeless tobacco: Never Vaping Use Vaping status: Never Used Substance Use Topics Alcohol use: No Drug use: No Review of Systems Constitutional: Negative for fever. HENT: Positive for congestion and sore throat. Negative for ear pain and nosebleeds. Respiratory: Positive for cough. Negative for shortness of breath and wheezing. Cardiovascular: Negative for chest pain. Musculoskeletal: Negative for neck pain. Skin: Negative for itching and rash. Objective Blood pressure 124/80, pulse 112, temperature 36.2 ?C (97.1 ?F), resp. rate 16, weight 120.8 kg (266 lb 5.1 oz), last menstrual period 07/23/2022, SpO2 100%. Physical Exam Constitutional: General: She is not in acute distress. Appearance: She is not toxic-appearing or diaphoretic. HENT: Head: Normocephalic and atraumatic. Cardiovascular: Rate and Rhythm: Regular rhythm. Tachycardia present. Heart sounds: Normal heart sounds, S1 normal and S2 normal. Pulmonary: Effort: Pulmonary effort is normal. Breath sounds: Normal breath sounds. Lymphadenopathy: Cervical: No cervical adenopathy. Right cervical: No superficial cervical adenopathy. Left cervical: No superficial cervical adenopathy. Neurological: Mental Status: She is alert and oriented to person, place, and time. Gait: Gait is intact. ASSESSMENT/PLAN: 1. Lower resp. tract infection - ICD9: 519.8, ICD10: J22 (primary diagnosis) - Discussed supportive care - Limit exposure to smoke and other inhaled irritants - Discussed possible red flags and when to seek medical attention - Follow up in 3-5 days or sooner if no better or worse -If you experience chest pain/shortness of breath go to ER - DOXYCYCLINE MONOHYDRATE 100 MG TABLET 2. 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 Normal [facility] STREP A MOLECULAR (POC)on Procedural Control Valid [facility] Strep A (POCT) Negative Negative [facility] Basophil percentageOrdered B y: Jose Echeverria on 07-30-2023 Bilirubin [Mass/Vol] 0.40 mg/dL 0.20-1.00 [facility] Comment on above: For patients on eltr ombopag therapy, use of Dimension [place] TBIL is not recommended. Chloride [Moles/Vol] 111 mmol/L 98-107 [facility] Cholesterol [Mass/Vol] 172 mg/dL <200 [facility] Comment on above: <200 mg/dL Desirable 200-240 mg/dL Borderline >240 mg/dL High Risk Glucose [Mass/Vol] 93 mg/dL 74-106 [facility] Potassium [Moles/Vol] 4.1 mmol/L 3.5-5.1 [facility] Protein [Mass/Vol] 7.0 g/dL 6.4-8.2 [facility] Sodium [Moles/Vol] 141 mmol/L 136-145 [facility] Triglyceride [Mass/Vol] 72 mg/dL <199 [facility] Comment on above: The drugs N-Acetylcy steine and Metamizole may falsely depress this assay.Serum Triglycerides Reference Interval Normal <150 mg/dL Borderline high 150 - 199 mg/dL High 200 - 499 mg/dL Very High > or = 500 mg/dL Laboratory - Chemistry and C hemistry - challengeOrdered By: Jose Echeverria on 07-30-2023 Albumin/Globulin [Mass ratio] 0.9 {ratio} 0.9-2.4 [facility] ALP [Catalytic activity/Vol] 97 U/L 45-117 [facility] ALT [Catalytic activity/Vol] 22 U/L 13-56 [facility] Cholesterol in HDL [Mass/Vol] 62 mg/dL >40 [facility] Comment on above: The drugs N-Acetylcy steine and Metamizole may falsely depress this assay. Reference Range HDL <40 mg/dL Low HDL Cholesterol HDL >or= 60 mg/dL High HDL Cholesterol Cholesterol in LDL [Mass/Vol] 96 mg/dL 0-130 [facility] CO2 [Moles/Vol] 26.0 mmol/L 21.0-32.0 [facility] Globulin (S) [Mass/Vol] 3.6 g/dL 2.2-4.2 [facility] Urea nitrogen/Creatinine [Mass ratio] 22.3 mg/mg 10-20 [facility] No Panel InformationOrdered By: Jose Echeverria on 07-30-2023 Estimated GFR (MDRD) Amer 105 mL/min >60 [facility] Comment on above: GFR Calc Estimated GFR (MDRD) Non-Af Amer 86 mL/min >60 [facility] Comment on above: Non- GFR Calc VLDL Cholesterol 14 mg/dL 5-40 [facility] Serum or plasma calcium laurence urement (mass/volume)Ordered By: Jose Echeverria on 07-30-2023 Calcium [Mass/Vol] 8.7 mg/dL 8.5-10.1 [facility] Serum or plasma creatinine m easurement (mass/volume)Ordered By: Jose Echeverria on 07-30-2023 Creatinine [Mass/Vol] 0.76 mg/dL 0.55-1.02 [facility] Comment on above: The validity of the calculated GFR & GFRAA in patients over 70 years has not been determined. Clinical correlation is essential. Serum or plasma urea nitroge n measurement (mass/volume)Ordered By: Jose Echeverria on 07-30-2023 Urea nitrogen [Mass/Vol] 17 mg/dL -18 [facility] Thin prep Papanicolaou smear with manual screeningOrdered By: Jose Echeverria on 07-30-2023 Thin prep Papanicolaou smear with manual screening 3.4 g/dL 3.2-5.0 [facility] Thin prep Papanicolaou smear with manual screening 17 U/L 15-37 [facility] Thin prep Papanicolaou smear with manual screening 4 5-15 [facility] CNPNon 07-23-2023 CNPN Telephone ([facility]) -- HONEYBJ ([id number]) 1975 F Date Time Provider Department 07/23/23 MATTHEW GUERRA [facility] During your visit today, we recorded the following information about you: Matthew Guerra MD 07/23/2023 3:03 PM Signed Culture did not show an infection. She may finish nitrofurantoin if helping. Follow-up with PCP or gynecology if symptoms persist. Pricilla Lott MA 07/23/2023 7:16 PM Signed Unable to reach patient. Mailbox full/Mailbox not set up/ Number incorrect. Please try again later. CLEMENTINE Dodge Melissa, MA 07/24/2023 8:31 AM Signed Left message for patient to return call. CLEMENTINE Dodge Melissa, MA 07/25/2023 9:28 AM Signed seen results in mychart Pricilla Lott MA Allergies As of Date: 07/23/2023 Noted Allergy Reaction LATEX 11/30/2010 2 - Rash Date Reviewed: 07/22/2023 Reviewed by: Pricilla Lott MA - Fully Assessed Reason for Visit: Results [95] Cmt: Urine Cx negative Prescriptions as of 07/25/2023 - nitrofurantoin monohydrate and macrocrystal (MACROBID) 100 mg capsule Take 1 capsule by mouth two times a day with meals for 5 days. - MYFEMBREE 40-1-0.5 mg tablet Take 1 tablet by mouth every afternoon. - OZEMPIC 0.25 mg or 0.5 mg (2 mg/3 mL) pen INJECT 0.25 MG SUBCUTANEOUSLY EVERY WEEK FOR 4 WEEKS - norethindrone (AYGESTIN) 5 mg tablet Take one tablet TID PO - FLUoxetine (PROZAC) 40 mg capsule Take 1 capsule by mouth once daily. - clobetasol (TEMOVATE) 0.05 % cream Apply to affected area 2x/day for 2 weeks, then 1x/day for a week, than 1-3x/week for maintenance. - aspirin/acetaminophen/caff eine (EXCEDRIN MIGRAINE ORAL) Take by mouth every 4 hours as needed. - rizatriptan (MAXALT) 10 mg tablet 1 tab at earliest sign of migraine. May repeat once in 2 hours if needed. Give max allowed per insurance. - topiramate (TOPAMAX) 100 mg tablet Take 1 tablet by mouth every evening. 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] 01/12/2009 Adjustment Disorder with Mixed Anxiety and Depr*12/13/2009 Cholecystitis with cholelithiasis [K80.10] 11/10/2010 Migraine [G43.909] 10/14/2012 Fatigue [R53.83] 10/14/2012 Vitamin D deficiency [E55.9] 10/22/2012 Solitary cyst of breast [N60.09] 04/29/2015 Encounter Status:Closed by PRICILLA LOTT on 07/25/23 Normal [facility] Bacteria Ur Culton 4 Bacteria identified Cx Nom (U) ORGANISM ID: 1 <10,000 CFU/ml Normal urogenital chirag Normal [facility] Comment on above: Performed By: #### 6 30-4 #### [facility] CLIA [id number] [address] [place] [address] STATES OF [facility] CNOVon 07-22-2023 CNOV Office Visit ([facility] ) -- BJ MÉNDEZ ([id number]) 1975 F Date Time Provider Department 07/22/23 2:15 PM KIRK TAVERAS [facility] During your visit today, we recorded the following information about you: Temperature Pulse Respiration Blood pressure 97.6 degrees 102/minute 16/minute 134/76 Weight 126.8 kg Kirk Taveras PA-C 07/22/2023 2:29 PM Signed This note was created using [employer]. Subjective Bj Méndez is a 47 year old female. HPI Patient presents with a chief complaint of urinary frequency and dysuria for 4 days. No blood in urine. No vaginal itching or discharge. She denies chance of . No back pain or abdominal pain. She has been taking Azo for 3 days. She did take it today. Review of Systems Constitutional: Negative. HENT: Negative. Respiratory: Negative. Cardiovascular: Negative. Gastrointestinal: Negative. Genitourinary: Positive for dysuria, frequency and urgency. Negative for hematuria, vaginal bleeding, vaginal discharge and vaginal pain. Musculoskeletal: Negative. All other systems reviewed and are negative. PAST MEDICAL HISTORY Diagnosis Date Backache, unspecified Depressive disorder, not elsewhere classified Female infertility of other specified origin Irritable bowel syndrome Unspecified closed fracture of ankle Right Current Outpatient Medications Medication Sig Dispense Refill MYFEMBREE 40-1-0.5 mg tablet Take 1 tablet by mouth every afternoon. norethindrone (AYGESTIN) 5 mg tablet Take one tablet TID PO 90 tablet 1 FLUoxetine (PROZAC) 40 mg capsule Take 1 capsule by mouth once daily. 90 capsule 3 clobetasol (TEMOVATE) 0.05 % cream Apply to affected area 2x/day for 2 weeks, then 1x/day for a week, than 1-3x/week for maintenance. 60 g 3 aspirin/acetaminophen/caff eine (EXCEDRIN MIGRAINE ORAL) Take by mouth every 4 hours as needed. rizatriptan (MAXALT) 10 mg tablet 1 tab at earliest sign of migraine. May repeat once in 2 hours if needed. Give max allowed per insurance. 9 tablet 11 topiramate (TOPAMAX) 100 mg tablet Take 1 tablet by mouth every evening. 30 tablet 11 nitrofurantoin monohydrate and macrocrystal (MACROBID) 100 mg capsule Take 1 capsule by mouth two times a day with meals for 5 days. 10 capsule 0 OZEMPIC 0.25 mg or 0.5 mg (2 mg/3 mL) pen INJECT 0.25 MG SUBCUTANEOUSLY EVERY WEEK FOR 4 WEEKS (Patient not taking: Reported on 07/22/2023) No current facility-administered medications for this visit. PAST SURGICAL HISTORY Procedure Laterality Date DELIVERY ONLY 04/2006 , low cervical FNA WITH IMAGING Right 04/29/15 U/S FNA upper mid right breast KNEE SURGERY HX Right 10/2016 miniscus repair LAPS SURG CHOLECYSTECTOMY W/CHOLANGIOGRAPHY 11-21-10 PAST SURGICAL HISTORY OF 1999 labral tear repair right shoulder PAST SURGICAL HISTORY OF 12/29 02/28 right knee surgery TONSILLECTOMY AND ADENOIDECTOMY Tonsil/adenoidectomy FAMILY HISTORY Problem Relation Age of Onset Hypertension Mother Hypertension Father Diabetes Maternal Grandfather Diabetes Paternal Grandfather Heart Paternal Grandfather Diabetes Paternal Grandmother heart, stroke Heart Paternal Grandmother Stroke Paternal Grandmother Colon Cancer Maternal Grandmother stomach/ colon Diabetes Maternal Grandmother Migraines Son Social History Tobacco Use Smoking status: Never Smokeless tobacco: Never Vaping Use Vaping Use: Never used Substance Use Topics Alcohol use: No Drug use: No Objective BP 134/76 Pulse 102 Temp 36.4 ?C (97.6 ?F) Resp 16 Wt 126.8 kg (279 lb 8.7 oz) LMP 07/23/2022 (Exact Date) SpO2 98% BMI 50.72 kg/m? Physical Exam Vitals reviewed. Constitutional: Appearance: Normal appearance. HENT: Head: Normocephalic and atraumatic. Cardiovascular: Rate and Rhythm: Normal rate and regular rhythm. Heart sounds: Normal heart sounds. Pulmonary: Effort: Pulmonary effort is normal. Breath sounds: Normal breath sounds. Abdominal: General: Abdomen is flat. There is no distension. Palpations: Abdomen is soft. Tenderness: There is no abdominal tenderness. There is no right CVA tenderness, left CVA tenderness or guarding. Skin: General: Skin is warm and dry. Findings: No rash. Neurological: Mental Status: She is alert. Assessment and Plan ASSESSMENT/PLAN: 1. Urinary frequency - ICD9: 788.41, ICD10: R35.0 acute - Send urine for culture- urine dip reliable due to Azo use. - Begin treatment with Macrobid 100 mg BID for 5 days - UA DIP, URINE (POC) - URINE CULTURE Kirk Taveras PA-C Allergies As of Date: 07/22/2023 Noted Allergy Reaction LATEX 11/30/2010 2 - Rash Date Reviewed: 07/22/2023 Reviewed by: Pricilla Lott MA - Fully Assessed Reason for Visit: Urinary Frequency [1086] Cmt: burning with urination x 4 days Primary Visit Diagnosis:Urinary frequency [R35.0] Order(s (more content not included)... Normal [facility] UA DIP, URINE (POC)on 2023 BILIRUBIN UA (POCT) Negative Negative [facility] CLARITY UA (POCT) Clear [facility] COLOR UA (POCT) [place] [facility] GLUCOSE UA (POCT) 100 mg/dL Abnormal Negative mg/dL [facility] Hemoglobin Ql (U) Moderate Abnormal Negative [facility] KETONE UA (POCT) Trace Negative mg/dL [facility] LEUKOCYTES UA (POCT) Negative Negative [facility] NITRITE UA (POCT) Positive Abnormal Negative [facility] PH UA (POCT) 5.5 4.5 - 8.0 [facility] Protein Ql (U) 30 mg/dL Abnormal Negative mg/dL [facility] SPECIFIC GRAVITY UA (POCT) >=1.030 1.005 - 1.030 [facility] UROBILINOGEN UA (POCT) 1.0 E.U./dL Normal E.U./dL [facility] STREP A MOLECULAR (POC)on Procedural Control Valid [facility] Strep A (POCT) Negative Negative [facility] Absolute lymphocyte countOrd ered By: Monique Evans on 11-10-2022 Lymphocytes Auto (Unsp spec) [#/Vol] 1.27 10*3/uL 0.83-4.51 [facility] Basophil percentageOrdered B y: Monique Evans on 11-10-2022 Basophils/100 WBC (Bld) 0.8 % 0-1 [facility] Bilirubin [Mass/Vol] 0.60 mg/dL 0.20-1.00 [facility] Comment on above: For patients on eltr ombopag therapy, use of Dimension [place] TBIL is not recommended. Chloride [Moles/Vol] 107 mmol/L 98-107 [facility] Cholesterol [Mass/Vol] 270 mg/dL <200 [facility] Comment on above: <200 mg/dL Desirable 200-240 mg/dL Borderline >240 mg/dL High Risk Eosinophils/100 WBC (Bld) 2.7 % 0-5 [facility] Glucose [Mass/Vol] 87 mg/dL 74-106 [facility] Neutrophils (Bld) [#/Vol] 4.3 10*3/uL 2.0-7.7 [facility] Neutrophils/100 WBC (Bld) 68.1 % 47-70 [facility] Potassium [Moles/Vol] 4.1 mmol/L 3.5-5.1 [facility] Protein [Mass/Vol] 7.4 g/dL 6.4-8.2 [facility] Sodium [Moles/Vol] 139 mmol/L 136-145 [facility] Triglyceride [Mass/Vol] 69 mg/dL <199 [facility] Comment on above: The drugs N-Acetylcy steine and Metamizole may falsely depress this assay.Serum Triglycerides Reference Interval Normal <150 mg/dL Borderline high 150 - 199 mg/dL High 200 - 499 mg/dL Very High > or = 500 mg/dL WBC (Bld) [#/Vol] 6.4 10*3/uL 4.4-11.0 [facility] Blood erythrocytes count (nu mber/volume)Ordered By: Monique Evans on 11-10-2022 RBC (Bld) [#/Vol] 4.61 10*6/uL 4.2-5.4 [facility] Blood hemoglobin measurement (mass/volume)Ordered By: Monique Evans on 11-10-2022 Hemoglobin (Bld) [Mass/Vol] 13.7 g/dL 12.0-15.0 [facility] Blood lymphocytes/100 leukoc ytesOrdered By: Monique Evans on 11-10-2022 Lymphocytes/100 WBC (Bld) 19.9 % 19-41 [facility] Blood monocytes/100 leukocyt esOrdered By: Monique Evans on 11-10-2022 Monocytes/100 WBC (Bld) 8.3 % 0-10 [facility] Blood platelet mean volumeOr dered By: Monique Evans on 11-10-2022 Platelet mean volume (Bld) [Entitic vol] 10.5 fL 6.2-12.0 [facility] Determination of erythrocyte mean corpuscular volume (MCV)Ordered By: Monique Evans on 11-10-2022 MCV (RBC) [Entitic vol] 92.0 fL 81-99 [facility] Hematocrit Auto (Bld) [Volum e fraction]Ordered By: Monique Evans on 11-10-2022 Hematocrit (Bld) [Volume fraction] 42.4 % 37-47 [facility] Laboratory - Chemistry and C hemistry - challengeOrdered By: Monique Evans on 11-10-2022 ALP [Catalytic activity/Vol] 91 U/L 45-117 [facility] ALT [Catalytic activity/Vol] 27 U/L 13-56 [facility] CO2 [Moles/Vol] 28.0 mmol/L 21.0-32.0 [facility] Globulin (S) [Mass/Vol] 4.0 g/dL 2.2-4.2 [facility] Urea nitrogen/Creatinine [Mass ratio] 14.1 mg/mg 10-20 [facility] Laboratory - Hematology and Cell countsOrdered By: Monique Evans on 11-10-2022 Erythrocyte distribution width (RBC) [Entitic vol] 43.0 fL 35.1-43.9 [facility] Erythrocyte distribution width (RBC) [Ratio] 12.7 % 11.6-14.6 [facility] Immature granulocytes/100 WBC (Bld) 0.200 % 0.0-0.9 [facility] Comment on above: IG% - Immature Granu locytes (promyelocytes, myelocytes and metamyelocytes) > 1% indicates that a LEFT SHIFT is Present. MCH (RBC) [Entitic mass] 29.7 pg 27.0-32.0 [facility] Nucleated RBC/100 WBC (Bld) [Ratio] 0 % 0-5 [facility] MCHC Auto (RBC) [Mass/Vol]Or dered By: Monique Eavns on 11-10-2022 MCHC (RBC) [Mass/Vol] 32.3 g/dL 32-36 [facility] No Panel InformationOrdered By: Monique Evans on 11-10-2022 Estimated GFR (MDRD) Amer 114 mL/min >60 [facility] Comment on above: GFR Calc Estimated GFR (MDRD) Non-Af Amer 94 mL/min >60 [facility] Comment on above: Non- GFR Calc Thyroid Stimulating Hormone (TSH) 1.97 uIU/mL 0.358-3.74 [facility] Platelets bldOrdered By: Bartolo Evans on 11-10-2022 Platelets (Bld) [#/Vol] 342 10*3/uL 150-450 [facility] Serum or plasma albumin laurence urement (mass/volume)Ordered By: Monique Evans on 11-10-2022 Albumin [Mass/Vol] 3.4 g/dL 3.2-5.0 [facility] Serum or plasma albumin/glob ulin mass ratioOrdered By: Monique Evasn on 11-10-2022 Albumin/Globulin [Mass ratio] 0.8 {ratio} 0.9-2.4 [facility] Serum or plasma calcitriol m easurement (mass/volume)Ordered By: Monique Evans on 11-10-2022 1,25-dihydroxyvitamin D3 [Mass/Vol] 33.4 pg/mL 24.8-81.5 [facility] Comment on above: Performed at: [facility] - [address] [id number] Director: Hector Rooney MD, Phone: [phone] Serum or plasma calcium laurence urement (mass/volume)Ordered By: Monique Evans on 11-10-2022 Calcium [Mass/Vol] 8.6 mg/dL 8.5-10.1 [facility] Serum or plasma cholesterol in HDL measurement (mass/volume)Ordered By: Monique Evans on 11-10-2022 Cholesterol in HDL [Mass/Vol] 73 mg/dL >40 [facility] Comment on above: The drugs N-Acetylcy steine and Metamizole may falsely depress this assay. Reference Range HDL <40 mg/dL Low HDL Cholesterol HDL >or= 60 mg/dL High HDL Cholesterol Serum or plasma cholesterol in VLDL measurement (mass/volume)Ordered By: Monique Evans on 11-10-2022 Cholesterol in VLDL [Mass/Vol] 14 mg/dL 5-40 [facility] Serum or plasma creatinine m easurement (mass/volume)Ordered By: Monique Evans on 11-10-2022 Creatinine [Mass/Vol] 0.71 mg/dL 0.55-1.02 [facility] Comment on above: The validity of the calculated GFR & GFRAA in patients over 70 years has not been determined. Clinical correlation is essential. Serum or plasma low density lipoprotein (LDL) cholesterol measurement (mass/volume)Ordered By: Monique Evans on 11-10-2022 Cholesterol in LDL [Mass/Vol] 183 mg/dL 0-130 [facility] Serum or plasma urea nitroge n measurement (mass/volume)Ordered By: Monique Evans on 11-10-2022 Urea nitrogen [Mass/Vol] 10 mg/dL 7-18 [facility] Thin prep Papanicolaou smear with manual screeningOrdered By: Monique Evans on 11-10-2022 Thin prep Papanicolaou smear with manual screening 16 U/L 15-37 [facility] Thin prep Papanicolaou smear with manual screening 4 5-15 [facility] Whole blood hemoglobin A1c/t otal hemoglobin ratio (mass fraction)Ordered By: Monique Evans on 11-10-2022 HbA1c (Bld) [Mass fraction] 5.3 % 3.8-5.6 [facility] Comment on above: Normal < 5.7 % Predi abetic 5.7 - 6.4 % Diabetic >or= 6.5 % Please note range changes. PELVIC US WHIon 08-11-2022 [facility] AMARI SCREENING W TOMOon 04-07 [facility] Vital Signs Date Time Vital Sign Value Performing Clinician Facility 01-22-2025 13:11-040 Body height 165.[address] Jose Echeverria MD Work Phone: [facility] 12-17-2024 15:56-0400 Body mass index (BMI) [Ratio] 45.3 kg/m2 Dr. Jose Echeverria MD Work Phone: [facility] 12-17-2024 15:56-0400 Body weight 124.[address] Jose Echeverria MD Work Phone: [facility] 12-17-2024 15:56-0400 Diastolic blood pressure 70 mm[Hg] Dr. Jose Echeverria MD Work Phone: [facility] 12-17-2024 15:56-0400 Heart rate 93 /min Dr. Jose Echeverria MD Work Phone: [facility] 12-17-2024 15:56-0400 Systolic blood pressure 129 mm[Hg] Dr. Jose Echeverria MD Work Phone: [facility] 12-17-2024 15:13-0400 Body mass index (BMI) [Ratio] 45.7 kg/m2 Dr. Jose Echeverria MD Work Phone: [facility] 12-17-2024 15:13-0400 Body weight 125.[address] Jose Echeverria MD Work Phone: [facility] 12-17-2024 15:13-0400 Diastolic blood pressure 84 mm[Hg] Dr. Jose Echeverria MD Work Phone: [facility] 12-17-2024 15:13-0400 Heart rate 90 /min Dr. Jose Echeverria MD Work Phone: [facility] 12-17-2024 15:13-0400 Systolic blood pressure 124 mm[Hg] Dr. Jose Echeverria MD Work Phone: [facility] 12-08-2024 08:52-0400 Body height 160 cm Isauro Abraham MD Work Phone: [facility] 12-08-2024 08:52-0400 Body height 160.02 cm Isauro Abraham MD Work Phone: [facility] 12-08-2024 08:52-0400 Body mass index (BMI) [Ratio] 49.07 kg/m2 Isauro Abraham MD Work Phone: [facility] 12-08-2024 08:52-0400 Body weight 125 kg Isauro Abraham MD Work Phone: [facility] 12-08-2024 08:52-0400 Body weight 125.19 kg Isauro Abraham MD Work Phone: [facility] 12-08-2024 08:52-0400 BP SITE #1 Isauro Abraham MD Work Phone: [facility] 12-08-2024 08:52-0400 Diastolic blood pressure 84 mm[Hg] Isauro Abraham MD Work Phone: [facility] 12-08-2024 08:52-0400 Heart rate 82 /min Isauro Abraham MD Work Phone: [facility] 12-08-2024 08:52-0400 HGHTCHNVIS Isauro Abraham MD Work Phone: [facility] 12-08-2024 08:52-0400 Systolic blood pressure 122 mm[Hg] Isauro Abraham MD Work Phone: [facility] 12-08-2024 08:52-0400 VITALSDONE Isauro Abraham MD Work Phone: [facility] 11-18-2024 13:16-0400 Body height 165.[address] Jose Echeverria MD Work Phone: [facility] 11-18-2024 13:16-0400 Body mass index (BMI) [Ratio] 45.6 kg/m2 Dr. Jose Echeverria MD Work Phone: [facility] 11-18-2024 13:16-0400 Body weight 125.[address] Jose Echeverria MD Work Phone: [facility] 11-18-2024 13:16-0400 Diastolic blood pressure 82 mm[Hg] Dr. Jose Echeverria MD Work Phone: [facility] 11-18-2024 13:16-0400 Heart rate 84 /min Dr. Jose Echeverria MD Work Phone: [facility] 11-18-2024 13:16-0400 Respiratory rate 18 /min Dr. Jose Echeverria MD Work Phone: [facility] 11-18-2024 13:16-0400 Systolic blood pressure 135 mm[Hg] Dr. Jose Echeverria MD Work Phone: [facility] 10-14-2024 14:39-0400 Body height 165.[address] Jose Echeverria MD Work Phone: [facility] 10-14-2024 14:34-0400 Body mass index (BMI) [Ratio] 43.9 kg/m2 Dr. Jose Echeverria MD Work Phone: [facility] 10-14-2024 14:34-0400 Body weight 119.[address] Jose Echeverria MD Work Phone: 6(766)291-544075 [address] 10-14-2024 14:34-0400 Diastolic blood pressure 85 mm[Hg] Dr. Jose Echeverria MD Work Phone: 9(281)791-481893 [place] [address] 10-14-2024 14:34-0400 Heart rate 100 /min Dr. Jose Echeverria MD Work Phone: 2(634)295-701293 [place] [address] 10-14-2024 14:34-0400 Systolic blood pressure 134 mm[Hg] Dr. Jose Echeverria MD Work Phone: 3(234)352-045093 [place] [address] 08-13-2024 08:16-0400 Body height 165.[address] Jose Echeverria MD Work Phone: 9(030)108-890193 [place] [address] 08-13-2024 08:16-0400 Body mass index (BMI) [Ratio] 43.4 kg/m2 Dr. Jose Echeverria MD Work Phone: [facility] 08-13-2024 08:16-0400 Body weight 119.[address] Jose Echeverria MD Work Phone: [facility] 08-13-2024 08:16-0400 Diastolic blood pressure 58 mm[Hg] Dr. Jose Echeverria MD Work Phone: [facility] 08-13-2024 08:16-0400 Heart rate 109 /min Dr. Jose Echeverria MD Work Phone: [facility] 08-13-2024 08:16-0400 Respiratory rate 18 /min Dr. Jose Echeverria MD Work Phone: [facility] 08-13-2024 08:16-0400 Systolic blood pressure 124 mm[Hg] Dr. Jose Echeverria MD Work Phone: [facility] 07-16-2024 14:05-0500 Body mass index (BMI) [Ratio] 43.5 kg/m2 Dr. Jose Echeverria MD Work Phone: 3(475)408-169493 [place] [address] 07-16-2024 14:05-0500 Body weight 119.[address] Jose Echeverria MD Work Phone: 0(972)122-959393 [place] [address] 07-16-2024 14:05-0500 Diastolic blood pressure 79 mm[Hg] Dr. Jose Echeverria MD Work Phone: 0(949)517-732393 [place] [address] 07-16-2024 14:05-0500 Heart rate 98 /min Dr. Jose Echeverria MD Work Phone: 7(182)515-343493 [place] [address] 07-16-2024 14:05-0500 Systolic blood pressure 108 mm[Hg] Dr. Jose Echeverria MD Work Phone: 3(758)251-333293 [place] [address] 07-10-2024 10:34-0500 Body mass index (BMI) [Ratio] 43 kg/m2 Dr. Jose Echeverria MD Work Phone: 1(861)782-934393 [place] [address] 07-10-2024 10:34-0500 Body weight 118.[address] Jose Echeverria MD Work Phone: [facility] 07-10-2024 10:34-0500 Diastolic blood pressure 68 mm[Hg] Dr. Jose Echeverria MD Work Phone: 0(781)118-841593 [place] [address] 07-10-2024 10:34-0500 Heart rate 106 /min Dr. Jose Echeverria MD Work Phone: 6(741)879-984493 [place] [address] 07-10-2024 10:34-0500 Systolic blood pressure 114 mm[Hg] Dr. Jose Echeverria MD Work Phone: 2(878)314-528793 [place] [address] 06-12-2024 15:38-0500 Body mass index (BMI) [Ratio] 44.1 kg/m2 Dr. Jose Echeverria MD Work Phone: [facility] 06-12-2024 15:38-0500 Body weight 120.[address] Jose Echeverria MD Work Phone: [facility] 06-12-2024 15:38-0500 Diastolic blood pressure 63 mm[Hg] Dr. Jose Echeverria MD Work Phone: [facility] 06-12-2024 15:38-0500 Heart rate 95 /min Dr. Jose Echeverria MD Work Phone: [facility] 06-12-2024 15:38-0500 Systolic blood pressure 113 mm[Hg] Dr. Jose Echeverria MD Work Phone: [facility] 02-24-2024 08:58-0400 Body mass index (BMI) [Ratio] 48.32 kg/m2 Hamlet Hoffman [employer] Work Phone: [facility] 02-24-2024 08:58-0400 Body temperature 97.11 [degF] Hamlet Hoffman [employer] Work Phone: [facility] 02-24-2024 08:58-0400 Body weight 120.8 kg Hamlet Hoffman [employer] Work Phone: [facility] 02-24-2024 08:58-0400 Diastolic blood pressure 80 mm[Hg] Hamlet Hoffman [employer] Work Phone: [facility] 02-24-2024 08:58-0400 Heart rate 112 /min Hamlet Hoffman [employer] Work Phone: [facility] 02-24-2024 08:58-0400 Respiratory rate 16 /min Hamlet Hoffman [employer] Work Phone: [facility] 02-24-2024 08:58-0400 SaO2% (BldA) [Mass fraction] 100 % Hamlet Hoffman [employer] Work Phone: [facility] 02-24-2024 08:58-0400 Systolic blood pressure 124 mm[Hg] Hamlet King JOSE Work Phone: [facility] 07-22-2023 14:16-0400 Body temperature 97.59 [degF] Kirk Athy PA-C Work Phone: [facility] 07-22-2023 14:16-0400 Body weight 126.8 kg Kirk Athy PA-C Work Phone: [facility] 07-22-2023 14:16-0400 Diastolic blood pressure 76 mm[Hg] Kirk Athy PA-C Work Phone: [facility] 07-22-2023 14:16-0400 Heart rate 102 /min Kirk Athy PA-C Work Phone: [facility] 07-22-2023 14:16-0400 Respiratory rate 16 /min Kirk Athy PA-C Work Phone: [facility] 07-22-2023 14:16-0400 SaO2% (BldA) [Mass fraction] 98 % Kirk Athy PA-C Work Phone: [facility] 07-22-2023 14:16-0400 Systolic blood pressure 134 mm[Hg] Kirk Athy PA-C Work Phone: [facility] 07-06-2023 08:52-0500 Body height 158.[address] Jose Echeverria Work Phone: [facility] 07-06-2023 08:51-0500 Body mass index (BMI) [Ratio] 50.3 kg/m2 Dr. Jose Echeverria Work Phone: [facility] 07-06-2023 08:51-0500 Body weight [address] Jose Echeverria Work Phone: [facility] 07-06-2023 08:51-0500 Diastolic blood pressure 83 mm[Hg] Dr. Jose Echeverria Work Phone: [facility] 07-06-2023 08:51-0500 Systolic blood pressure 112 mm[Hg] Dr. Jose Echeverria Work Phone: [facility] 02-07-2023 15:49-0400 Body height 158.[address] Cal Kruger Work Phone: [facility] 02-07-2023 15:49-0400 Body weight 128.[address] Cal Kruger Work Phone: [facility] 02-03-2023 08:58-0400 Body temperature 98.4 [degF] Matthew Guerra MD Work Phone: [facility] 02-03-2023 08:58-0400 Body weight 128.64 kg Matthew Guerra MD Work Phone: [facility] 02-03-2023 08:58-0400 Diastolic blood pressure 82 mm[Hg] Matthew Guerra MD Work Phone: [facility] 02-03-2023 08:58-0400 Heart rate 116 /min Matthew Guerra MD Work Phone: [facility] 02-03-2023 08:58-0400 Respiratory rate 18 /min Matthew Guerra MD Work Phone: [facility] 02-03-2023 08:58-0400 SaO2% (BldA) [Mass fraction] 96 % Matthew Guerra MD Work Phone: [facility] 02-03-2023 08:58-0400 Systolic blood pressure 108 mm[Hg] Matthew Guerra MD Work Phone: [facility] 01-10-2023 16:10-0400 Body height 158.[address] Cal Kruger Work Phone: [facility] 01-10-2023 16:10-0400 Body weight 130.[address] Cal Kruger Work Phone: [facility] 01-08-2023 15:39-0400 Body mass index (BMI) [Ratio] 52.5 kg/m2 Dr. Cal Kruger Work Phone: [facility] 01-08-2023 15:39-0400 Body weight 130.[address] Cal Kruger Work Phone: [facility] 11-27-2022 10:20-0400 Body height 158.[address] Cal Kruger Work Phone: [facility] [facility] 11-27-2022 10:20-0400 Body weight 131.[address] Cal Kruger Work Phone: [facility] 11-16-2022 08:02-0400 Body height 158.[address] Cal Kruger Work Phone: [facility] 11-16-2022 08:02-0400 Body mass index (BMI) [Ratio] 51.5 kg/m2 Dr. Cal Kruger Work Phone: [facility] 11-16-2022 08:02-0400 Body temperature 97.5 [degF] Dr. Cal Kruger Work Phone: [facility] 11-16-2022 08:02-0400 Body weight 129.[address] Cal Kruger Work Phone: [facility] 11-16-2022 08:02-0400 Diastolic blood pressure 82 mm[Hg] Dr. Cal Kruger Work Phone: [facility] 11-16-2022 08:02-0400 Heart rate 70 /min Dr. Cal Kruger Work Phone: [facility] 11-16-2022 08:02-0400 Respiratory rate 18 /min Dr. Cal Kruger Work Phone: [facility] 11-16-2022 08:02-0400 SaO2% (BldA) [Mass fraction] 96 % Dr. Cal Kruger Work Phone: [facility] 11-16-2022 08:02-0400 Systolic blood pressure 117 mm[Hg] Dr. Cal Kruger Work Phone: [facility] 11-07-2022 09:08-0400 Body mass index (BMI) [Ratio] 52.2 kg/m2 Dr. Cal Kruger Work Phone: [facility] 11-07-2022 09:08-0400 Body weight 129.[address] Cal Kruger Work Phone: [facility] 11-07-2022 09:08-0400 Diastolic blood pressure 90 mm[Hg] Dr. aCl Kruger Work Phone: [facility] 11-07-2022 09:08-0400 Systolic blood pressure 119 mm[Hg] Dr. Cal Kruger Work Phone: [facility] 09-08-2022 08:27-0400 Body height 158.[address] Cal Kruger Work Phone: [facility] 09-08-2022 08:17-0400 Body mass index (BMI) [Ratio] 50.9 kg/m2 Dr. Cal Kruger Work Phone: [facility] 09-08-2022 08:17-0400 Body weight 128.[address] Cal Kruger Work Phone: [facility] 09-08-2022 08:17-0400 Diastolic blood pressure 84 mm[Hg] Dr. Cal Kruger Work Phone: [facility] 09-08-2022 08:17-0400 Systolic blood pressure 133 mm[Hg] Dr. Cal Kruger Work Phone: [facility] 08-31-2022 14:57-0400 Body weight 129.28 kg Maxine Brown MD Work Phone: [facility] 08-31-2022 14:57-0400 Diastolic blood pressure 80 mm[Hg] Maxine Brown MD Work Phone: [facility] 08-31-2022 14:57-0400 Systolic blood pressure 118 mm[Hg] Maxine Brown MD Work Phone: [facility] 08-17-2022 07:21-0400 Body weight 128.46 kg Bella Kissimmee [employer].CUTTING MACHINE TENDER HELPER Work Phone: [facility] 08-17-2022 07:21-0400 Diastolic blood pressure 70 mm[Hg] Bella Kissimmee [employer].CUTTING MACHINE TENDER HELPER Work Phone: [facility] 08-17-2022 07:21-0400 Systolic blood pressure 110 mm[Hg] Bella Madelaine [employer].CUTTING MACHINE TENDER HELPER Work Phone: [facility] 02-22-2022 14:27-0400 Body height 158.1 cm Bella Madelaine [employer].CUTTING MACHINE TENDER HELPER Work Phone: [facility] 02-22-2022 14:27-0400 Body weight 128.82 kg Bella Madelaine [employer].CUTTING MACHINE TENDER HELPER Work Phone: [facility] 02-22-2022 14:27-0400 Diastolic blood pressure 70 mm[Hg] Bella Madelaine [employer].CUTTING MACHINE TENDER HELPER Work Phone: [facility] 02-22-2022 14:27-0400 Heart rate 98 /min Bella Kissimmee [employer].CUTTING MACHINE TENDER HELPER Work Phone: [facility] 02-22-2022 14:27-0400 Respiratory rate 14 /min Bella Kissimmee [employer].CUTTING MACHINE TENDER HELPER Work Phone: [facility] 02-22-2022 14:27-0400 SaO2% (BldA) [Mass fraction] 98 % Bella Madelaine [employer].CUTTING MACHINE TENDER HELPER Work Phone: [facility] 02-22-2022 14:27-0400 Systolic blood pressure 110 mm[Hg] Bella Madelaine [employer].CUTTING MACHINE TENDER HELPER Work Phone: [facility] Encounters Encounter Date Encounter Type Care Provider Facility Start: 03-18-2025 End: 03-18-2025 [facility] Facility:[facility] Start: 03-17-2025 [facility] Start: 03-06-2025 End: 03-06-2025 Emergency department patient visit [facility] Facility:[facility] Start: 01-22-2025 End: 01-22-[address] Monique Evans MD -[facility] Work Phone: Start: 01-22-2025 End: 01-22-[address] Jose Echeverria MD Work Phone: -[facility] Start: 12-17-2024 End: 12-17-2024 Patient encounter procedure Loreta Salazar CROP PEST CONTROL SPECIALIST-C -[facility] Work Phone: Start: 12-17-2024 End: 12-17-[address] Jose Echeverria MD Work Phone: -[facility] Start: 12-08-2024 Visit out of hours Isauro luna MD Work Phone: [facility] Work Phone: Start: 12-08-2024 In-person encounter Isauro galicia MD Work Phone: [facility] Work Phone: Start: 11-18-2024 End: 11-18-2024 Patient encounter procedure Lucy Ashley NP-Asuncion -[facility] Work Phone: Start: 11-18-2024 End: 11-18-[address] Jose Echeverria MD Work Phone: -[facility] Start: 10-27-2024 Non-patient / Non-visit Dr. Sienna funez MD -[facility] Work Phone: Start: 10-27-2024 End: 10-27-[address] Jose Echeverria MD Work Phone: [facility] Work Phone: Start: 10-27-2024 End: 10-27-2024 Patient encounter procedure Ke Newman CROP PEST CONTROL SPECIALIST-C -Pulmonary Services/Neurology Work Phone: Start: 10-27-2024 End: 10-27-2024 ambulatory Jose Echeverria Facility:[facility] Start: 10-17-2024 End: 10-17-[address] Jose Echeverria MD Work Phone: [facility] Work Phone: Start: 10-17-2024 End: 10-17-[address] Jose Echeverria MD -[facility] Start: 10-17-2024 End: 10-17-2024 ambulatory Jose Echeverria Facility:[facility] Start: 10-14-2024 End: 10-14-2024 Patient encounter procedure Loreta Salazar CROP PEST CONTROL SPECIALIST-C -[facility] Work Phone: Start: 10-14-2024 End: 10-14-[address] Jose Echeverria MD Work Phone: [facility] Work Phone: Start: 09-15-2024 ambulatory Jose Echeverria Facility:[facility] Start: 09-15-2024 Non-patient / Non-visit Dr. Sienna funez MD -[facility] Start: 09-15-2024 End: 09-15-[address] Jose Echeverria MD Work Phone: [facility] Work Phone: Start: 09-15-2024 End: 09-15-[address] Sienna James MD -Cardiovascular Services Work Phone: Start: 09-15-2024 End: 09-15-2024 ambulatory Jose Echeverria Facility:[facility] Start: 08-13-2024 End: 08-13-[address] Sienna James MD -[facility] Work Phone: Start: 08-13-2024 End: 08-13-[address] Jose Echeverria MD Work Phone: [facility] Work Phone: Start: 08-13-2024 End: 08-13-2024 ambulatory Jose Echeverria Facility:[facility] Start: 07-16-2024 End: 07-16-2024 Patient encounter procedure Loreta LIRA -[facility] Work Phone: Start: 07-16-2024 End: 07-16-2024 ambulatory Jose Echeverria Facility:[facility] Start: 07-10-2024 End: 07-10-2024 Patient encounter procedure Loreta LIRA -[facility] Work Phone: Start: 07-10-2024 End: 07-10-2024 ambulatory Jose Echeverria Facility:[facility] Start: 06-12-2024 End: 06-12-2024 Patient encounter procedure Loreta LIRA -[facility] Work Phone: Start: 06-12-2024 End: 06-12-2024 ambulatory Jose Echeverria Facility:[facility] Start: 06-06-2024 ambulatory Jose Echeverria Facility:[facility] Start: 04-16-2024 End: 04-16-2024 ambulatory Jose Echeverria Facility:[facility] Start: 02-24-2024 End: 02-24-2024 ambulatory SADA KRUGER Facility:[facility] Start: 02-24-2024 End: 02-24-2024 Patient encounter procedure Hamlet Hoffman APRN.CNP Work Phone: [facility] Comment on above: Lower resp. tract in fection (Primary Dx); Sore throat Start: 07-30-2023 End: 07-30-[address] Jose Echeverria Work Phone: [facility] Work Phone: Start: 07-30-2023 End: 07-30-[address] Jose Echeverria Work Phone: [facility] Start: 07-23-2023 Telephone encounter Matthew Navas MD Work Phone: [facility] Comment on above: Results (Urine Cx ne gative) Start: 07-22-2023 End: 07-22-2023 ambulatory SADA KRUGER Facility:[facility] Start: 07-22-2023 End: 07-22-2023 Patient encounter procedure Kirk Taveras PA-C Work Phone: [facility] Comment on above: Urinary frequency (P rimary Dx) Start: 07-06-2023 End: 07-06-[address] Jose Echeverria Work Phone: [facility] Work Phone: Start: 02-07-2023 End: 02-10-[address] Cal Kruger Work Phone: [facility] Work Phone: Start: 02-07-2023 End: 02-10-[address] Cal Kruger Work Phone: [facility] Work Phone: Start: 02-03-2023 End: 02-03-2023 Patient encounter procedure Matthew Guerra MD Work Phone: [facility] Comment on above: Sore throat (Primary Dx); Left acute suppurative otitis media; Impacted cerumen of left ear Start: 01-10-2023 End: 01-11-[address] Cal Kruger Work Phone: [facility] Work Phone: Start: 01-10-2023 End: 01-11-[address] Cal Kruger Work Phone: [facility] Work Phone: Start: 01-08-2023 End: 01-08-[address] Cal Kruger Work Phone: [facility] Work Phone: Start: 12-26-2022 End: 12-26-[address] Cal Kruger Work Phone: [facility]-Sleep Lab Work Phone: Start: 11-27-2022 End: 12-11-[address] Cal Kruger Work Phone: [facility] Work Phone: Start: 11-27-2022 End: 12-11-[address] Cal Kruger Work Phone: [facility]-Nutritional Services Work Phone: Start: 11-16-2022 End: 11-16-[address] Cal Kruger Work Phone: [facility]-Pulmonary Medicine [facility] Work Phone: Start: 11-10-2022 End: 11-10-2022 Non-patient / Non-visit Dr. Cal Kruger Work Phone: [facility] Work Phone: Start: 11-10-2022 End: 11-10-[address] Cal Kruger Work Phone: [facility] Work Phone: Start: 11-10-2022 End: 11-10-[address] Cal Kruger Work Phone: [facility]-Pulmonary Services/Neurology Work Phone: Start: 11-07-2022 End: 11-07-[address] Cal Kruger Work Phone: [facility] Work Phone: Start: 09-22-2022 Refill Maxine Brown MD Work Phone: OB/Gynecology Comment on above: Refill Request Start: 09-19-2022 Telephone encounter Maxine Brown MD Work Phone: OB/Gynecology Comment on above: Schedule Surgery Start: 09-08-2022 End: 09-08-[address] Cal Kruger Work Phone: [facility] Work Phone: Start: 09-08-2022 End: 09-08-[address] Cal Kruger Work Phone: [facility]-Laboratory, Specimen Start: 09-08-2022 End: 09-08-[address] Cal Kruger Work Phone: [facility] Start: 09-04-2022 Telephone encounter Maxine Brown MD Work Phone: OB/Gynecology Comment on above: Appointment Start: 08-31-2022 End: 08-31-2022 Patient encounter procedure Maxine Brown MD Work Phone: OB/Gynecology Comment on above: Abnormal uterine ble eding (AUB) (Primary Dx); Stenotic cervical os; Class 3 severe obesity with body mass index (BMI) of 50.0 to 59.9 in adult, unspecified obesity type, unspecified whether serious comorbidity present (HCC) Start: 08-17-2022 End: 08-17-2022 Patient encounter procedure Bella Burkett APRN.CUTTING MACHINE TENDER HELPER Work Phone: OB/Gynecology Comment on above: Menorrhagia with reg ular cycle (Primary Dx); Adenomyosis Start: 08-11-2022 Telephone encounter Bella farah APRN.CUTTING MACHINE TENDER HELPER Work Phone: OB/Gynecology Comment on above: Results Start: 08-11-2022 End: 08-11-2022 ambulatory Ob Ultrasound Work Phone: OB/Gynecology Start: 08-11-2022 End: 08-11-2022 Patient encounter procedure Maxine Brown MD Work Phone: OB/Gynecology Comment on above: Abnormal uterine ble eding (AUB) (Primary Dx) Start: 04-09-2022 Documentation procedure Mammog herson Coordinator [facility] Start: 04-09-2022 Letter encounter Mammography Coordinator [facility] Department Start: 04-07-2022 End: 04-07-2022 Subsequent hospital visit by physician Screen Mammo [facility] Comment on above: Encounter for screen ing mammogram for breast cancer [Z12.31] Start: 03-02-2022 Telephone encounter Bella farah [employer].CUTTING MACHINE TENDER HELPER Work Phone: OB/Gynecology Comment on above: Results Start: 02-22-2022 End: 02-22-2022 Patient encounter procedure Bella Madelaine ZHOU.CUTTING MACHINE TENDER HELPER Work Phone: OB/Gynecology Comment on above: Encounter for gyneco logical examination (general) (routine) without abnormal findings (Primary Dx); Screening for cervical cancer; Encounter for screening mammogram for breast cancer; Dense breast tissue; Menorrhagia with regular cycle; Vulvar irritation Start: 02-22-2022 End: 02-22-2022 Patient encounter status Bella Burkett [employer].CUTTING MACHINE TENDER HELPER Work Phone: OB/Gynecology Procedures Date Procedure Procedure Detail Performing Clinician Start: 12-08-2024 Blood pressure withi n normal parameters - no follow-up required Isauro Abraham MD Work Phone: Start: 12-08-2024 BMI documented as ab ove normal parameters - follow-up documented Isauro Abraham MD Work Phone: Start: 12-08-2024 Current tobacco non- user cad cap copd pv dm Isauro Abraham MD Work Phone: Start: 12-08-2024 Documentation of cur rent medications Isauro Abraham MD Work Phone: Start: 12-08-2024 Osteoarthritis sympt oms and functional status not assessed Isauro Abraham MD Work Phone: Start: 12-08-2024 Pain assessment docu mented as positive - follow-up documented Isauro Abraham MD Work Phone: Start: 12-08-2024 Physical therapy management Isauro Abraham MD Work Phone: Start: 09-15-2024 Radionuclide imaging of perfusion of myocardium under exercise stress Dr. Jose Echeverria MD Work Phone: Start: 08-13-2024 Evaluation of diagno stic study results Dr. Jose Echeverria MD Work Phone: Start: 02-24-2024 STREP A MOLECULAR (POC) Hamlet Hoffman [employer].CUTTING MACHINE TENDER HELPER Work Phone: Start: 07-22-2023 Urnls dip stick/tabl et rgnt auto w/o microscopy Kirk Taveras PA-C Work Phone: Start: 02-03-2023 STREP A MOLECULAR (POC) Matthew Guerra MD Work Phone: Start: 08-11-2022 Us pelvic nonobstetr ic real-time image complete Bella Reescalf [employer].CUTTING MACHINE TENDER HELPER Work Phone: Start: 04-07-2022 AMARI SCREENING W BRENT Re ekaterinae Madelaine [employer].CUTTING MACHINE TENDER HELPER Work Phone: Start: 04-07-2022 Mammography Mammograph y Coordinator Start: 03-28-2021 Mammography Bella [facility] [employer].CUTTING MACHINE TENDER HELPER Work Phone: Start: 10-17-2012 Lipid 1996 panel - S farshad or Plasma Ob Ultrasound Work Phone: Plan of Treatment Date Care Activity Detail Author Start: 12-11-2032 Urine microalbumin profile DTaP,Tdap,Td Vaccine (2 - Td or Tdap) [facility] Start: 03-31-2025 ambulatory Ambulatory Facility:[facility] Start: 12-08-2024 End: 12-08-2024 [employer] Work Phone: Start: 08-13-2024 Evaluation of diagnostic study results 12 Lead EKG performed by [facility] Start: 07-16-2024 Patient referral [facility] Work Phone: Start: 01-13-2024 Covid-19 Vaccine () Covid-19 Vaccine () [facility] Start: 01-13-2024 Influenza vaccination Influenza Vaccine (#1) [facility] Start: 05-14-2023 Depression Assessment Depression Assessment [facility] Start: 04-07-2023 Mammography [facility] Start: 04-07-2023 Screening for malignant neoplasm of breast Mammogram Screening [facility] Start: 01-12-2023 Covid-19 Vaccine ( season) Covid-19 Vaccine ( season) [facility] Start: 01-12-2023 Influenza vaccination [facility] Start: 11-07-2022 Patient referral [facility] Work Phone: Start: 10-01-2022 HPV TESTING HPV TESTING [facility] Start: 10-01-2022 PAP TESTING PAP TESTING [facility] Start: 10-01-2022 Screening for malignant neoplasm of cervix [facility] Start: 05-14-2022 DEPRESSION ASSESSMENT DEPRESSION ASSESSMENT [facility] Start: 03-28-2022 Mammography MAMMOGRAM [facility] Start: 01-12-2022 Influenza vaccination INFLUENZA (#1) [facility] Start: 2021 COLOGUARD (FIT-DNA) COLOGUARD (FIT-DNA) [facility] Start: 2021 Colonoscopy COLONOSCOPY [facility] Start: 2021 COLORECTAL CANCER SCREENING COLORECTAL CANCER SCREENING [facility] Start: [address] COLONOGRAPHY [facility] Start: 2021 DIABETES SCREEN DIABETES SCREEN [facility] Start: 2021 Diabetes Screening Diabetes Screening [facility] Start: 2021 FECAL OCCULT BLOOD FECAL OCCULT BLOOD [facility] Start: 2021 Lipid 1996 panel - Serum or Plasma Lipid Screening [facility] Start: 2021 Lipid panel Lipid Screening [facility] Start: 2021 LIPID SCREEN LIPID SCREEN [facility] Start: 2021 Screening for malignant neoplasm of colon [facility] Start: 2021 SIGMOIDOSCOPY SIGMOIDOSCOPY [facility] Start: 05-14-2021 DEPRESSION ASSESSMENT DEPRESSION ASSESSMENT [facility] Start: 10-21-1995 Hepatitis B Vaccine (1 of 3 - 19+ 3-dose series) Hepatitis B Vaccine (1 of 3 - 19+ 3-dose series) [facility] Start: 10-21-1995 Urine microalbumin profile [facility] Start: 1994 Anxiety Screening Anxiety Screening [facility] Start: 1994 Depression Screening Depression Screening [facility] Start: 1994 HEPATITIS C SCREENING HEPATITIS C SCREENING [facility] Start: 1994 Hepatitis C screening Hepatitis C Screening [facility] Start: 1994 HIV SCREENING HIV SCREENING [facility] Start: 1994 HIV screening HIV Screening [facility] Start: 04-21-1977 COVID-19 VACCINE (#1) COVID-19 VACCINE (#1) [facility] Start: 1976 HEPATITIS B (1 of 3 - 3-dose series) HEPATITIS B (1 of 3 - 3-dose series) [facility] Start: 1976 Hepatitis B Vaccine (1 of 3 - 3-dose series) Hepatitis B Vaccine (1 of 3 - 3-dose series) [facility] Bacteria identified in Urine by Culture URINE CULTURE Microbiology Routine Urinary frequency 07/22/2023 2:30 PM EDT [facility] Work Phone: Electrocardiographic procedure [facility] Insertion intrauteri ne device iud INSERT INTRAUTERINE DEVICE Procedures Routine Menorrhagia with regular cycle Adenomyosis 1 Occurrences starting 08/11/2022 [facility] Work Phone: Comment on above: 1 Occurrences starting 08/11/2022 End: 03-24-2023 AMARI SCREENING W BRENT AMARI SCREENING W BRENT Radiology Routine Encounter for screening mammogram for breast cancer Dense breast tissue 1 Occurrences starting 02/22/2022 until 03/24/2023 [facility] Work Phone: Comment on above: 1 Occurrences starting 02/22/2022 until 03/24/2023 Patient referral [facility] Work Phone: Polysomnography [facility] Radionuclide imaging of perfusion of myocardium under exercise stress [facility] SURGICAL PATHOLOGY SURGICAL PATH OLOGY Lab Routine Vulvar irritation 02/22/2022 3:31 PM EDT [facility] Work Phone: [facility] Immunizations Immunization Date Immunization Notes Care Provider Conrado tapia 03-04-2011 influenza virus vaccine, live, attenuated, for intranasal use Bella Kissimmee [employer].CUTTING MACHINE TENDER HELPER Work Phone: [facility] Work Phone: 03-04-2011 influenza virus vaccine, unspecified formulation Ob Ultrasound Work Phone: [facility] 04-14-2010 influenza virus vaccine, unspecified formulation Bella Kissimmee [employer].CUTTING MACHINE TENDER HELPER Work Phone: [facility] Work Phone: 02-11-2009 influenza virus vaccine, unspecified formulation Bella Madelaine [employer].CUTTING MACHINE TENDER HELPER Work Phone: [facility] Work Phone: 03-26-2006 influenza virus vaccine, unspecified formulation Bella Madelaine [employer].CUTTING MACHINE TENDER HELPER Work Phone: [facility] Payers Date Payer Category Payer Self-pay [id number] 2021 Unknown [id number] 2021 Unknown [id number] 2016 Unknown [facility] [employer] [facility] [id number] Unknown [id number] 2.16.8 [id number] Unknown [id number] 2.16.8 [id number] Unknown [id number] 2.16.8 [id number] Unknown [id number] 2.16.8 [id number] Unknown [id number] 2.16.8 [id number] Unknown [id number] 2.16.8 [id number] Unknown [id number] 2.16.8 [id number] Unknown [id number] 2.16.8 [id number] Unknown [id number] 2.16.8 [id number] Unknown [id number] 2.16.8 [id number] Unknown [id number] 2.16.8 [id number] Unknown [id number] 2.16.8 [id number] Unknown [id number] 2.16.8 [id number] Unknown [id number] 2.16.8 [id number] Unknown [id number] 2.16.8 [id number] Unknown [id number] 2.16.8 [id number] Unknown [id number] 2.16.8 [id number] Unknown [id number] 2.16.8 [id number] Unknown [id number] 2.16.8 [id number] Unknown [id number] 2.16.8 [id number] Social History Date Type Detail Facility Start: 02-24-2011 End: 01-22-2025 Tobacco smoking status NHIS Never smoked tobacco [facility] Work Phone: Start: 02-24-2011 End: 08-10-2022 Tobacco use and exposure Smokeless tobacco non-user [facility] Work Phone: Start: 02-22-2022 End: 02-24-2024 Alcohol intake Current non-drinker of alcohol (finding) [facility] Start: 01-27-2020 End: 03-09-2020 History SDOH Social Connections Phone 5 [facility] Start: 01-27-2020 End: 03-09-2020 History SDOH Social Connections Get Together 2 [facility] Start: 01-27-2020 History SDOH Social Connections Cheondoism 3 [facility] Start: 01-27-2020 End: 03-09-2020 History SDOH Social Connections Membership 1 [facility] Start: 01-27-2020 History SDOH Stress 4 [facility] Start: 01-27-2020 Education 18 [facility] Start: 1975 Sex Assigned At Not on file C [facility] Start: 02-12-2022 End: 04-07-2022 Exposure to SARS-CoV-2 (event) Not sure [facility] Start: 09-08-2022 End: 07-06-2023 Tobacco smoking status NHIS Unknown if ever smoked [facility] Start: 09-04-2022 None [facility] Start: 09-04-2022 Homeless [facility] Start: 09-04-2022 Non-smoker [facility] Start: 1975 Sex Assigned At Female W [facility] Start: 01-27-2020 End: 06-09-2022 History of Social function [facility] Work Phone: Start: 01-27-2020 End: 12-08-2024 Social connection and isolation panel [facility] Work Phone: Do you belong to any clubs or organizations such as latter-day groups, unions, fraternal or athletic groups, or school groups? Yes [facility] Work Phone: Are you now , , , , never or living with a partner? [facility] Work Phone: How hard is it for y ou to pay for the very basics like food, housing, medical care, and heating Not hard at all [facility] Do you feel stress - tense, restless, nervous, or anxious, or unable to sleep at night because your mind is troubled all the time - these days [OSQ] Rather much [facility] Work Phone: (I/We) worried [facility] er (my/our) food would run out before (I/we) got money to buy more. Never true [facility] Start: 08-18-2024 [facility]-2005 to 10-14-2024 Note Date & Type Note Facility 10-14-2024 Evaluation note Diagnosis Onset Date Resolution Abnormal uterine bleeding acute October 14, 2024 2 :33pm Depression acute October 14, 2024 2:33pm High cholesterol acute October 2:33pm Metabolic syndrome acute October 142024 2:33pm Obesity, morbid, BMI 40.0-49.9 acute October 14, 2024 2 :33pm Other obesity acute October 14, 2 025 2:33pm Tachycardia acute October 14 2:33pm Tachycardia acute November 18 1:09pm Morbid obesity with BMI of 40.0-44.9, adult chronic November 18 1:09pm Abnormal uterine bleeding acute December 17, 2024 3:00pm Depression acute December 17 3:00pm High cholesterol acute December 172024 3:00pm Metabolic syndrome acute December 17, 2024 3:00pm Obesity, morbid, BMI 40.0-49.9 acute December 17, 2024 3:00pm Other obesity acute December 17, 2024 3:00pm Tachycardia acute December 17, 2 025 3:00pm [facility] [employer] [facility] Work Phone: 1(691) 375-300806-03-2025 Evaluation note* Diagnosis Onset Date Resolution Status Admit Date Abnormal uterine bleeding acute October 14, 2024 2:33pm Depression acute October 14, 2024 2:33pm High cholesterol acute October 2:33pm Metabolic syndrome acute October 142024 2:33pm Obesity, morbid, BMI 40.0-49.9 acute October 14, 2024 2 :33pm Other obesity acute October 14, 2 025 2:33pm Tachycardia acute October 14 2:33pm Tachycardia acute November 18 1:09pm Morbid obesity with BMI of 40.0-44.9, adult chronic November 18, 2024 1:09pm Abnormal uterine bleeding acute December 17, 2024 3:00pm Depression acute December 17 3:00pm High cholesterol acute December 172024 3:00pm Metabolic syndrome acute December 17, 2024 3:00pm Obesity, morbid, BMI 40.0-49.9 acute December 17, 2024 3:00pm Other obesity acute December 17, 2024 3:00pm Tachycardia acute December 17, 2 025 3:00pm Abnormal uterine bleeding acute January 22, 2025 12:57pm Depression acute January 12:57pm High cholesterol acute 2024 12:57pm Metabolic syndrome acute 2024 12:57pm Obesity, morbid, BMI 40.0-49.9 acute January 22, 2025 12:57pm Other obesity acute January 122024 12:57pm Tachycardia acute January 12:57pm [facility] Work Phone: 1(812) 681-191904-02-2025 Evaluation note* Diagnosis Onset Date Resolution Status Admit Date Tachycardia acute August 13 8:53am Dyspnea on exertion chronic August 13, 2024 8:53am Excessive caffeine intake chronic August 13, 2024 8:53am Morbid obesity with BMI of 40.0-44.9, adult chronic August 13, 2024 8:53am Abnormal uterine bleeding acute October 14, 2024 2:33pm Depression acute October 14, 2024 2:33pm High cholesterol acute October 2:33pm Metabolic syndrome acute October 142024 2:33pm Obesity, morbid, BMI 40.0-49.9 acute October 14, 2024 2:33pm Other obesity acute October 14, 2 025 2:33pm Tachycardia acute October 14 2:33pm Tachycardia acute November 18 1:09pm Dyspnea on exertion chronic November 18, 2024 1:09pm Morbid obesity with BMI of 40.0-44.9, adult chronic November 18, 2024 1:09pm [facility] Work Phone: 1(221) 957-684802-27-2025 Evaluation note* Diagnosis Onset Date Resolution Status Admit Date Abnormal uterine bleeding acute July 10, 2024 10:31am Depression acute July 10, 2024 10:31am High cholesterol acute July 10, 2024 10:31am Metabolic syndrome acute 2024 10:31am Obesity, morbid, BMI 40.0-49.9 acute July 10, 2 025 10:31am Other obesity acute July 102024 10:31am Tachycardia acute June 10:31am Abnormal uterine bleeding acute July 16, 2024 2:03pm Depression acute July 16 2:03pm High cholesterol acute July 2:03pm Metabolic syndrome acute July 16, 2024 2:03pm Obesity, morbid, BMI 40.0-49.9 July 16, 2024 2:03pm Other obesity acute July 16, 2024 2:03pm Tachycardia acute July 16 2:03pm Tachycardia acute August 13 8:53am Dyspnea on exertion chronic August 13, 2024 8:53am Excessive caffeine intake chronic August 13, 2024 8:53am Morbid obesity with BMI of 40.0-44.9, adult chronic August 13, 2024 8:53am Abnormal uterine bleeding acute October 14, 2024 2:33pm Depression acute October 14, 2024 2:33pm High cholesterol acute October 2:33pm Metabolic syndrome acute October 142024 2:33pm Obesity, morbid, BMI 40.0-49.9 acute October 14, 2024 2 :33pm Other obesity acute October 14 025 2:33pm Tachycardia acute October 14 2:33pm [facility] Work Phone: 1(901) 988-532201-30-2025 Evaluation note* Diagnosis Onset Date Resolution Status Admit Date Abnormal uterine bleeding acute June 12, 2024 3:31pm Depression acute June 12, 2024 3:31pm High cholesterol acute June 12, 2024 3:31pm Metabolic syndrome acute 2024 3:31pm Obesity, morbid, BMI 40.0-49.9 acute June 12 3:31pm Other obesity acute May 3:31pm Tachycardia acute June 12, 2024 3:31pm Abnormal uterine bleeding acute July 10, 2024 10:31am Depression acute July 10, 2024 10:31am High cholesterol acute July 10, 2024 10:31am Metabolic syndrome acute 2024 10:31am Obesity, morbid, BMI 40.0-49.9 acute February 27th, 2 025 10:31am Other obesity acute July 102024 10:31am Tachycardia acute June 10:31am Abnormal uterine bleeding acute July 16, 2024 2:03pm Depression acute July 16 2:03pm High cholesterol acute July 2:03pm Metabolic syndrome acute July 16, 2024 2:03pm Obesity, morbid, BMI 40.0-49.9 acute July 16, 2024 2:03pm Other obesity July 16, 2024 2:03pm Tachycardia acute July 16 2:03pm Tachycardia acute August 13 8:53am Dyspnea on exertion chronic August 13, 2024 8:53am Excessive caffeine intake chronic August 13, 2024 8:53am Morbid obesity with BMI of 40.0-44.9, adult chronic August 13, 2024 8:53am [facility] Work Phone: 1(510) 217-804310-13-2024 NoteHNO ID: [id number] Author: HAMLET HOFFMAN APRN.CUTTING MACHINE TENDER HELPER Service: ? Author Type: Nurse Practitioner Type: Progress Notes Filed: 02/24/2024 09:19 Note Text: Subjective HPI HPI Bj Méndez is a 48 year old female who presents today for CC of cough, chest congestion, st. This started 3 days ago. Has tried otc medication for relief. Symptoms are worsened by nothing. Risk factors multiple pneumonia exposures at home. nonsmoker. .Patient presents with: Chest Congestion: cough x 3 days PAST MEDICAL HISTORY Diagnosis Date Backache, unspecified Depressive disorder, not elsewhere classified Female infertility of other specified origin Irritable bowel syndrome Unspecified closed fracture of ankle Right PAST SURGICAL HISTORY Procedure Laterality Date DELIVERY ONLY 04/2006 , low cervical FNA WITH IMAGING Right 04/29/15 U/S FNA upper mid right breast KNEE SURGERY HX Right 10/2016 miniscus repair LAPS SURG CHOLECYSTECTOMY W/CHOLANGIOGRAPHY 11-21-10 PAST SURGICAL HISTORY OF 1999 labral tear repair right shoulder PAST SURGICAL HISTORY OF 12/29 02/28 right knee surgery TONSILLECTOMY AND ADENOIDECTOMY Tonsil/adenoidectomy ALLERGIES Latex MEDICATIONS FLUoxetine (PROZAC) 40 mg capsule Take 1 capsule by mouth once daily. aspirin/acetaminophen/caffeine (EXCEDRIN MIGRAINE ORAL) Take by mouth every 4 hours as needed. rizatriptan (MAXALT) 10 mg tablet 1 tab at earliest sign of migraine. May repeat once in 2 hours if needed. Give max allowed per insurance. topiramate (TOPAMAX) 100 mg tablet Take 1 tablet by mouth every evening. doxycycline monohydrate 100 mg tablet Take 1 tablet by mouth two times a day for 7 days. MYFEMBREE 40-1-0.5 mg tablet Take 1 tablet by mouth every afternoon. (Patient not taking: Reported on 02/24/2024) OZEMPIC 0.25 mg or 0.5 mg (2 mg/3 mL) pen INJECT 0.25 MG SUBCUTANEOUSLY EVERY WEEK FOR 4 WEEKS (Patient not taking: Reported on 07/22/2023) norethindrone (AYGESTIN) 5 mg tablet Take one tablet TID PO (Patient not taking: Reported on 02/24/2024) clobetasol (TEMOVATE) 0.05 % cream Apply to affected area 2x/day for 2 weeks, then 1x/day for a week, than 1-3x/week for maintenance. (Patient not taking: Reported on 02/24/2024) FAMILY HISTORY Problem Relation Age of Onset Hypertension Mother Hypertension Father Diabetes Maternal Grandfather Diabetes Paternal Grandfather Heart Paternal Grandfather Diabetes Paternal Grandmother heart, stroke Heart Paternal Grandmother Stroke Paternal Grandmother Colon Cancer Maternal Grandmother stomach/ colon Diabetes Maternal Grandmother Migraines Son Social History Tobacco Use Smoking status: Never Smokeless tobacco: Never Vaping Use Vaping status: Never Used Substance Use Topics Alcohol use: No Drug use: No Review of Systems Constitutional: Negative for fever. HENT: Positive for congestion and sore throat. Negative for ear pain and nosebleeds. Respiratory: Positive for cough. Negative for shortness of breath and wheezing. Cardiovascular: Negative for chest pain. Musculoskeletal: Negative for neck pain. Skin: Negative for itching and rash. Objective Blood pressure 124/80, pulse 112, temperature 36.2 ?C (97.1 ?F), resp. rate 16, weight 120.8 kg (266 lb 5.1 oz), last menstrual period 07/23/2022, SpO2 100%. Physical Exam Constitutional: General: She is not in acute distress. Appearance: She is not toxic-appearing or diaphoretic. HENT: Head: Normocephalic and atraumatic. Cardiovascular: Rate and Rhythm: Regular rhythm. Tachycardia present. Heart sounds: Normal heart sounds, S1 normal and S2 normal. Pulmonary: Effort: Pulmonary effort is normal. Breath sounds: Normal breath sounds. Lymphadenopathy: Cervical: No cervical adenopathy. Right cervical: No superficial cervical adenopathy. Left cervical: No superficial cervical adenopathy. Neurological: Mental Status: She is alert and oriented to person, place, and time. Gait: Gait is intact. ASSESSMENT/PLAN: 1. Lower resp. tract infection - ICD9: 519.8, ICD10: J22 (primary diagnosis) - Discussed supportive care - Limit exposure to smoke and other inhaled irritants - Discussed possible red flags and when to seek medical attention - Follow up in 3-5 days or sooner if no better or worse -If you experience chest pain/shortness of breath go to ER - DOXYCYCLINE MONOHYDRATE 100 MG TABLET 2. Sore throat - ICD9: 462, ICD10: J02.9 negative - STREP A MOLECULAR (POC) Hamlet Hoffman APRN.[facility]10-13-2024 History of Present illness Narrative* Hamlet Hoffman APRN.CUTTING MACHINE TENDER HELPER - 02/24/2024 9:16 AM EDT Subjective HPI HPI Bj Méndez is a 48 year old female who presents today for CC of cough, chest congestion, st. This started 3 days ago. Has tried otc medication for relief. Symptoms are worsened by nothing. Riskfactors multiple pneumonia exposures at home. nonsmoker. .Patient presents with: Chest Congestion: cough x 3 days PAST MEDICAL HISTORY Diagnosis Date Backache, unspecified Depressive disorder, not elsewhere classified Female infertility of other specified origin Irritable bowel syndrome Unspecified closed fracture of ankle Right PAST SURGICAL HISTORY Procedure Laterality Date DELIVERY ONLY 04/2006 , low cervical FNA WITH IMAGING Right 04/29/15 U/S FNA upper mid right breast KNEE SURGERY HX Right 10/2016 miniscus repair LAPS SURG CHOLECYSTECTOMY W/CHOLANGIOGRAPHY 11-21-10 PAST SURGICAL HISTORY OF 1999 labral tear repair right shoulder PAST SURGICAL HISTORY OF 12/29 02/28 right knee surgery TONSILLECTOMY & ADENOIDECTOMY <AGE [age] Tonsil/adenoidectomy ALLERGIES Latex MEDICATIONS FLUoxetine (PROZAC) 40 mg capsule Take 1 capsule by mouth once daily. aspirin/acetaminophen/caffeine (EXCEDRIN MIGRAINE ORAL) Take by mouth every 4 hours as needed. rizatriptan (MAXALT) 10 mg tablet 1 tab at earliest sign of migraine. May repeat once in 2 hours ifneeded. Give max allowed per insurance. topiramate (TOPAMAX) 100 mg tablet Take 1 tablet by mouth every evening. doxycycline monohydrate 100 mg tablet Take 1 tablet by mouth two times a day for 7 days. MYFEMBREE 40-1-0.5 mg tablet Take 1 tablet by mouth every afternoon. (Patient not taking: Reported on 02/24/2024) OZEMPIC 0.25 mg or 0.5 mg (2 mg/3 mL) pen INJECT 0.25 MG SUBCUTANEOUSLY EVERY WEEK FOR 4 WEEKS (Patient not taking: Reported on 07/22/2023) norethindrone (AYGESTIN) 5 mg tablet Take one tablet TID PO (Patient not taking: Reported on 02/24/2024) clobetasol (TEMOVATE) 0.05 % cream Apply to affected area 2x/day for 2 weeks, then 1x/day for a week, than 1-3x/week for maintenance. (Patient not taking: Reported on 02/24/2024) FAMILY HISTORY Problem Relation Age of Onset Hypertension Mother Hypertension Father Diabetes Maternal Grandfather Diabetes Paternal Grandfather Heart Paternal Grandfather Diabetes Paternal Grandmother heart, stroke Heart Paternal Grandmother Stroke Paternal Grandmother Colon Cancer Maternal Grandmother stomach/ colon Diabetes Maternal Grandmother Migraines Son Social History Tobacco Use Smoking status: Never Smokeless tobacco: Never Vaping Use Vaping status: Never Used Substance Use Topics Alcohol use: No Drug use: No Review of Systems Constitutional: Negative for fever. HENT: Positive for congestion and sore throat. Negative for ear pain and nosebleeds. Respiratory: Positive for cough. Negative for shortness of breath and wheezing. Cardiovascular: Negative for chest pain. Musculoskeletal: Negative for neck pain. Skin: Negative for itching and rash. Objective Blood pressure 124/80, pulse 112, temperature 36.2 C (97.1 F), resp. rate 16, weight 120.8 kg (266 lb 5.1 oz), last menstrual period 07/23/2022, SpO2 100%. Physical Exam Constitutional: General: She is not in acute distress. Appearance: She is not toxic-appearing or diaphoretic. HENT: Head: Normocephalic and atraumatic. Cardiovascular: Rate and Rhythm: Regular rhythm. Tachycardia present. Heart sounds: Normal heart sounds, S1 normal and S2 normal. Pulmonary: Effort: Pulmonary effort is normal. Breath sounds: Normal breath sounds. Lymphadenopathy: Cervical: No cervical adenopathy. Right cervical: No superficial cervical adenopathy. Left cervical: No superficial cervical adenopathy. Neurological: Mental Status: She is alert and oriented to person, place, and time. Gait: Gait is intact. ASSESSMENT/PLAN: 1. Lower resp. tract infection - ICD9: 519.8, ICD10: J22 (primary diagnosis) - Discussed supportive care - Limit exposure to smoke and other inhaled irritants - Discussed possible red flags and when to seek medical attention - Follow up in 3-5 days or sooner if no better or worse -If you experience chest pain/shortness of breath go to ER - DOXYCYCLINE MONOHYDRATE 100 MG TABLET 2. Sore throat - ICD9: 462, ICD10: J02.9 negative - STREP A MOLECULAR (POC) Hamlet Hoffman APRN.CUTTING MACHINE TENDER HELPER documented [facility] encounter[facility] Miscellaneous Notes* Telephone Encounter - Pricilla Lott MA - 07/25/2023 9:28 AM EDT seen results in mychart Pricilla Lott MA * Telephone Encounter - Pricilla Lott MA - 07/24/2023 8:30 AM EDT Left message for patient to return call. Pricilla Lott MA * Telephone Encounter - Pricilla Lott MA - 07/23/2023 7:15 PM EDT Unable to reach patient. Mailbox full/Mailbox not set up/ Number incorrect. Please try again later. Pricilla Lott MA * Telephone Encounter - Matthew Guerra MD - 07/23/2023 3:02 PM EDT Culture did not show an infection. She may finish nitrofurantoin if helping. Follow-up with PCP or gynecology if symptoms persist. documented in this encounterOhio[facility]03-10-2024 NoteHNO ID: [id number] Author: KIRK TAVERAS PA-C Service: ? Author Type: Physician Sheet Rock Nailer Type: Progress Notes Filed: 07/22/2023 14:29 Note Text: This note was created using [employer]. Subjective Bj Méndez is a 47 year old female. HPI Patient presents with a chief complaint of urinary frequency and dysuria for 4 days. No blood in urine. No vaginal itching or discharge. She denies chance of . No back pain or abdominal pain. She has been taking Azo for 3 days. She did take it today. Review of Systems Constitutional: Negative. HENT: Negative. Respiratory: Negative. Cardiovascular: Negative. Gastrointestinal: Negative. Genitourinary: Positive for dysuria, frequency and urgency. Negative for hematuria, vaginal bleeding, vaginal discharge and vaginal pain. Musculoskeletal: Negative. All other systems reviewed and are negative. PAST MEDICAL HISTORY Diagnosis Date Backache, unspecified Depressive disorder, not elsewhere classified Female infertility of other specified origin Irritable bowel syndrome Unspecified closed fracture of ankle Right Current Outpatient Medications Medication Sig Dispense Refill MYFEMBREE 40-1-0.5 mg tablet Take 1 tablet by mouth every afternoon. norethindrone (AYGESTIN) 5 mg tablet Take one tablet TID PO 90 tablet 1 FLUoxetine (PROZAC) 40 mg capsule Take 1 capsule by mouth once daily. 90 capsule 3 clobetasol (TEMOVATE) 0.05 % cream Apply to affected area 2x/day for 2 weeks, then 1x/day for a week, than 1-3x/week for maintenance. 60 g 3 aspirin/acetaminophen/caffeine (EXCEDRIN MIGRAINE ORAL) Take by mouth every 4 hours as needed. rizatriptan (MAXALT) 10 mg tablet 1 tab at earliest sign of migraine. May repeat once in 2 hours if needed. Give max allowed per insurance. 9 tablet 11 topiramate (TOPAMAX) 100 mg tablet Take 1 tablet by mouth every evening. 30 tablet 11 nitrofurantoin monohydrate and macrocrystal (MACROBID) 100 mg capsule Take 1 capsule by mouth two times a day with meals for 5 days. 10 capsule 0 OZEMPIC 0.25 mg or 0.5 mg (2 mg/3 mL) pen INJECT 0.25 MG SUBCUTANEOUSLY EVERY WEEK FOR 4 WEEKS (Patient not taking: Reported on 07/22/2023) No current facility-administered medications for this visit. PAST SURGICAL HISTORY Procedure Laterality Date DELIVERY ONLY 04/2006 , low cervical FNA WITH IMAGING Right 04/29/15 U/S FNA upper mid right breast KNEE SURGERY HX Right 10/2016 miniscus repair LAPS SURG CHOLECYSTECTOMY W/CHOLANGIOGRAPHY 11-21-10 PAST SURGICAL HISTORY OF 1999 labral tear repair right shoulder PAST SURGICAL HISTORY OF 12/29 02/28 right knee surgery TONSILLECTOMY AND ADENOIDECTOMY Tonsil/adenoidectomy FAMILY HISTORY Problem Relation Age of Onset Hypertension Mother Hypertension Father Diabetes Maternal Grandfather Diabetes Paternal Grandfather Heart Paternal Grandfather Diabetes Paternal Grandmother heart, stroke Heart Paternal Grandmother Stroke Paternal Grandmother Colon Cancer Maternal Grandmother stomach/ colon Diabetes Maternal Grandmother Migraines Son Social History Tobacco Use Smoking status: Never Smokeless tobacco: Never Vaping Use Vaping Use: Never used Substance Use Topics Alcohol use: No Drug use: No Objective BP 134/76 Pulse 102 Temp 36.4 ?C (97.6 ?F) Resp 16 Wt 126.8 kg (279 lb 8.7 oz) LMP 07/23/2022 (Exact Date) SpO2 98% BMI 50.72 kg/m? Physical Exam Vitals reviewed. Constitutional: Appearance: Normal appearance. HENT: Head: Normocephalic and atraumatic. Cardiovascular: Rate and Rhythm: Normal rate and regular rhythm. Heart sounds: Normal heart sounds. Pulmonary: Effort: Pulmonary effort is normal. Breath sounds: Normal breath sounds. Abdominal: General: Abdomen is flat. There is no distension. Palpations: Abdomen is soft. Tenderness: There is no abdominal tenderness. There is no right CVA tenderness, left CVA tenderness or guarding. Skin: General: Skin is warm and dry. Findings: No rash. Neurological: Mental Status: She is alert. Assessment and Plan ASSESSMENT/PLAN: 1. Urinary frequency - ICD9: 788.41, ICD10: R35.0 acute - Send urine for culture- urine dip reliable due to Azo use. - Begin treatment with Macrobid 100 mg BID for 5 days - UA DIP, URINE (POC) - URINE CULTURE [facility]03-10-2024 History of Present illness Narrative* Kirk Taveras PA-C - 07/22/2023 2:27 PM EDT This note was created using [employer]. Subjective Bj Méndez is a 47 year old female. HPI Patient presents with a chief complaint of urinary frequency and dysuria for 4 days. No blood in urine. No vaginal itching or discharge. She denies chance of . No back pain or abdominal pain. She has been taking Azo for 3 days. She did take it today. Review of Systems Constitutional: Negative. HENT: Negative. Respiratory: Negative. Cardiovascular: Negative. Gastrointestinal: Negative. Genitourinary: Positive for dysuria, frequency and urgency. Negative for hematuria, vaginal bleeding, vaginal discharge and vaginal pain. Musculoskeletal: Negative. All other systems reviewed and are negative. PAST MEDICAL HISTORY Diagnosis Date Backache, unspecified Depressive disorder, not elsewhere classified Female infertility of other specified origin Irritable bowel syndrome Unspecified closed fracture of ankle Right Current Outpatient Medications Medication Sig Dispense Refill MYFEMBREE 40-1-0.5 mg tablet Take 1 tablet by mouth every afternoon. norethindrone (AYGESTIN) 5 mg tablet Take one tablet TID PO 90 tablet 1 FLUoxetine (PROZAC) 40 mg capsule Take 1 capsule by mouth once daily. 90 capsule 3 clobetasol (TEMOVATE) 0.05 % cream Apply to affected area 2x/day for 2 weeks, then 1x/day for a week, than 1-3x/week for maintenance. 60 g 3 aspirin/acetaminophen/caffeine (EXCEDRIN MIGRAINE ORAL) Take by mouth every 4 hours as needed. rizatriptan (MAXALT) 10 mg tablet 1 tab at earliest sign of migraine. May repeat once in 2 hours ifneeded. Give max allowed per insurance. 9 tablet 11 topiramate (TOPAMAX) 100 mg tablet Take 1 tablet by mouth every evening. 30 tablet 11 nitrofurantoin monohydrate and macrocrystal (MACROBID) 100 mg capsule Take 1 capsule by mouth two times a day with meals for 5 days. 10 capsule 0 OZEMPIC 0.25 mg or 0.5 mg (2 mg/3 mL) pen INJECT 0.25 MG SUBCUTANEOUSLY EVERY WEEK FOR 4 WEEKS (Patient not taking: Reported on 07/22/2023) No current facility-administered medications for this visit. PAST SURGICAL HISTORY Procedure Laterality Date DELIVERY ONLY 04/2006 , low cervical FNA WITH IMAGING Right 04/29/15 U/S FNA upper mid right breast KNEE SURGERY HX Right 10/2016 miniscus repair LAPS SURG CHOLECYSTECTOMY W/CHOLANGIOGRAPHY 11-21-10 PAST SURGICAL HISTORY OF 1999 labral tear repair right shoulder PAST SURGICAL HISTORY OF 12/29 02/28 right knee surgery TONSILLECTOMY & ADENOIDECTOMY <AGE [age] Tonsil/adenoidectomy FAMILY HISTORY Problem Relation Age of Onset Hypertension Mother Hypertension Father Diabetes Maternal Grandfather Diabetes Paternal Grandfather Heart Paternal Grandfather Diabetes Paternal Grandmother heart, stroke Heart Paternal Grandmother Stroke Paternal Grandmother Colon Cancer Maternal Grandmother stomach/ colon Diabetes Maternal Grandmother Migraines Son Social History Tobacco Use Smoking status: Never Smokeless tobacco: Never Vaping Use Vaping Use: Never used Substance Use Topics Alcohol use: No Drug use: No Objective BP 134/76 Pulse 102 Temp 36.4 C (97.6 F) Resp 16 Wt 126.8 kg (279 lb 8.7 oz) LMP 07/23/2022 (Exact Date) SpO2 98% BMI 50.72 kg/m Physical Exam Vitals reviewed. Constitutional: Appearance: Normal appearance. HENT: Head: Normocephalic and atraumatic. Cardiovascular: Rate and Rhythm: Normal rate and regular rhythm. Heart sounds: Normal heart sounds. Pulmonary: Effort: Pulmonary effort is normal. Breath sounds: Normal breath sounds. Abdominal: General: Abdomen is flat. There is no distension. Palpations: Abdomen is soft. Tenderness: There is no abdominal tenderness. There is no right CVA tenderness, left CVA tendernessor guarding. Skin: General: Skin is warm and dry. Findings: No rash. Neurological: Mental Status: She is alert. Assessment and Plan ASSESSMENT/PLAN: 1. Urinary frequency - ICD9: 788.41, ICD10: R35.0 acute - Send urine for culture- urine dip reliable due to Azo use. - Begin treatment with Macrobid 100 mg BID for 5 days - UA DIP, URINE (POC) - URINE CULTURE Kirk Taveras PA-C documented in this encounterOhio[facility]09-23-[facility]23 History of Present illness Narrative* Matthew Guerra MD - 02/03/2023 9:03 AM EDT Patient presents with: Cough: Congestion x2 weeks, ST x3 days HPI: Feeling sick for 3 days. Has had a lingering cough for 2 weeks which came with a URI. Positive symptoms: Cough, Sore throat, fever Chills, Body Aches, Headache (frontal and occipital), Nausea, Vomiting, left earache Negative symptoms: Shortness of breath, Diarrhea, OTC: Tylenol MEDICATIONS: Current Outpatient Medications Medication Sig MYFEMBREE 40-1-0.5 mg tablet Take 1 tablet by mouth every afternoon. OZEMPIC 0.25 mg or 0.5 mg (2 mg/3 mL) pen INJECT 0.25 MG SUBCUTANEOUSLY EVERY WEEK FOR 4 WEEKS norethindrone (AYGESTIN) 5 mg tablet Take one tablet TID PO FLUoxetine (PROZAC) 40 mg capsule Take 1 capsule by mouth once daily. rizatriptan (MAXALT) 10 mg tablet 1 tab at earliest sign of migraine. May repeat once in 2 hours ifneeded. Give max allowed per insurance. topiramate (TOPAMAX) 100 mg tablet Take 1 tablet by mouth every evening. clobetasol (TEMOVATE) 0.05 % cream Apply to affected area 2x/day for 2 weeks, then 1x/day for a week, than 1-3x/week for maintenance. aspirin/acetaminophen/caffeine (EXCEDRIN MIGRAINE ORAL) Take by mouth every 4 hours as needed. No current facility-administered medications for this visit. ALLERGIES: ALLERGIES Allergen Reactions Latex Rash VITALS: BP 108/82 Pulse 116 Temp 36.9 C (98.4 F) Resp 18 Wt 128.6 kg (283 lb 9.6 oz) LMP 07/23/2022 (Exact Date) SpO2 96% BMI 51.46 kg/m PHYSICAL EXAM: GEN: mildly ill appearing HEENT: PERRL, EOMI, conjunctiva clear Ears: right canal clear. Left canal occluded by dry cerumen. RTM without erythema, bulge, or effusion. Sinuses: non-tender frontal sinus, non-tender maxillary sinuses Throat: moist mucous membranes, pharyngeal erythema, no exudate Neck: supple, no thyromegaly, tender anterior lymphadenopathy HEART: regular rate and rhythm, no murmurs LUNGS: clear to auscultation, no wheezes or crackles, no increased WOB ASSESSMENT/PLAN: 1. Sore throat - ICD9: 462, ICD10: J02.9 (primary diagnosis) - STREP A MOLECULAR (POC) - negative. - suspect viral URI, differential includes COVID-19. She will consider doing a home test. - supportive care treatment. - Red flags to seek further treatment include chest pain, shortness of breath, and lethargy; in theER if severe. 2. Left acute suppurative otitis media - ICD9: 382.00, ICD10: H66.002 3. Impacted cerumen of left ear - ICD9: 380.4, ICD10: H61.22 Partial removal of dry cerumen using lighted curette and alligator forceps. - AMOXICILLIN 875 MG TABLET Matthew Guerra MD documented in this encounterOhiohealth [facility]05-09-2023 Miscellaneous Notes* Telephone Encounter - Merly Hardwick LPN - 09/19/2022 1:43 PM EDT See previous phone note from 09/04/2022 * Telephone Encounter - Merly Hardwick LPN - 09/19/2022 10:11 AM EDT Left message to call office. Next available surgery dates at [facility] with Dr. Brown are 09/28/22 or 11/02/22. Patient will need a pre- operative appointment documented [place] encounterKenn[place] [address]-05-2023 Miscellaneous Notes* Telephone Encounter - Maxine Brown MD - 09/15/2022 10:04 AM EDT Noted. Happy to see her and discuss anytime again if desired. * Telephone Encounter - Casandra Salgado LPN - 09/15/2022 8:18 AM EDT Pt returned call and stated that she had gotten a 2nd opinion and has decided not to pursue any further treatment at this time. Casandra Salgado LPN * Telephone Encounter - Casandra Salgado LPN - 09/14/2022 2:22 PM EDT Message left asking pt if she had made a decision about how she would like to proceed. Casandra Salgado LPN * Telephone Encounter - Bianca Govea RN - 09/04/2022 3:59 PM EDT Patient notified. She wants to think about it and will call back to schedule once she decides. Leave note open until she calls back. Bianca Govea RN * Telephone Encounter - Maxine Brown MD - 09/04/2022 12:53 PM EDT VM left for patient- After she left office I realized she did not have EMB done. In office pt wanted to have ablation and mirena IUD placed. She needs to have EMB done prior to Ablation to r/o any abnormal cells. I apologize as I through RMdid this. I also spoke to AG who attempted to put in Mirena, she feels patient would be successful with MIRENA insertion in office if pretreated with cytotec. I would like to offer patient in office EMB with reattempt at IUD insertion- if fails then I would proceed with Mienrva / IUD insertion in OR. Honestly, if she needs EMB she should try the IUD insertion at same time. But ultimately choice is her. I would give cytotec prior to procedure. documented in this encounterOhiohealth [facility]04-20-2023 History of Present illness Narrative* Maxine Brown MD - 08/31/2022 2:52 PM EDT Bj Méndez is a 46 year old female who presents for discussion regarding AUB and mgmt options after failed attempt at IUD insertion. Multiple attempts at IUD were made and unsuccessful and pt does not desire this to be done in the office. Pt desires hysterectomy or ablation to be performed. Pt reports heavy bleeding and irregular bleeding. Pt reports no other concerns today but states aygestin only works when taking 3 tablets per day. Pt uses vasectomy for BC. Pt offers no other concerns today. OB History T2 L3 SAB0 IAB0 Ectopic0 Multiple1 Live Births3 Comment: Pt was twice, one set of twins, three children. 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 LMP: 07/23/2022 (Exact Date), Having periods Age at Menarche: 13 Age at First : 25 Age at Menopause: 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 Comments: Sexual Activity: Yes; Male; has had Vasectomy Contraception: Vasectomy PAST MEDICAL HISTORY Diagnosis Date Backache, unspecified Depressive disorder, not elsewhere classified Female infertility of other specified origin Irritable bowel syndrome Unspecified closed fracture of ankle Right PAST SURGICAL HISTORY Procedure Laterality Date DELIVERY ONLY 04/2006 , low cervical FNA WITH IMAGING Right 04/29/15 U/S FNA upper mid right breast KNEE SURGERY HX Right 10/2016 miniscus repair LAPS SURG CHOLECYSTECTOMY W/CHOLANGIOGRAPHY 11-21-10 PAST SURGICAL HISTORY OF 1999 labral tear repair right shoulder PAST SURGICAL HISTORY OF 12/29 02/28 right knee surgery TONSILLECTOMY & ADENOIDECTOMY <AGE [age] Tonsil/adenoidectomy FAMILY HISTORY Problem Relation Age of Onset Hypertension Mother Hypertension Father Diabetes Maternal Grandfather Diabetes Paternal Grandfather Heart Paternal Grandfather Diabetes Paternal Grandmother heart, stroke Heart Paternal Grandmother Stroke Paternal Grandmother Colon Cancer Maternal Grandmother stomach/ colon Diabetes Maternal Grandmother Migraines Son Social History Tobacco Use Smoking status: Never Smokeless tobacco: Never Vaping Use Vaping Use: Never used Substance Use Topics Alcohol use: No Drug use: No Current Outpatient Medications Medication Sig norethindrone (AYGESTIN) 5 mg tablet Take 1 tablet TID until bleeding stops, the BID x 3 days, the daily x 3 days. FLUoxetine (PROZAC) 40 mg capsule Take 1 capsule by mouth once daily. clobetasol (TEMOVATE) 0.05 % cream Apply to affected area 2x/day for 2 weeks, then 1x/day for a week, than 1-3x/week for maintenance. aspirin/acetaminophen/caffeine (EXCEDRIN MIGRAINE ORAL) Take by mouth every 4 hours as needed. rizatriptan (MAXALT) 10 mg tablet 1 tab at earliest sign of migraine. May repeat once in 2 hours ifneeded. Give max allowed per insurance. topiramate (TOPAMAX) 100 mg tablet Take 1 tablet by mouth every evening. No current facility-administered medications for this visit. Allergies As of Date: 08/31/2022 Allergen Noted Reaction LATEX 11/30/2010 Rash PENICILLINS 08/04/2003 Hives Fully Assessed 08/17/2022 REVIEW OF SYSTEMS . Expanded ROS: neg fever Allergies and current medication updated:Yes EXAM: BP 118/80 Wt 285 lb (129.3kg) LMP 07/23/2022 GENERAL: pleasant, female in no apparent distress HEENT: Normocephalic NECK: full range of motion DERMATOLOGY: without lesions NEURO: alert and oriented x3,exam grossly non-foca ASSESSMENT AND PLAN: Encounter Diagnosis ICD-10-CM 1. Abnormal uterine bleeding (AUB) N93.9 2. 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 Class 3 severe obesity with body mass index (BMI) of 50.0 to 59.9 in adult, unspecified obesity type, unspecified whether serious comorbidity present ([facility]) E66.01 Z68.43 4. Discussed options with patient- recommend Mirena IUD- pt would like further intervention and is not interested in trying again in office due to pain. I reviewed that due to obesity she is at risk for endometrial cancer / hyperplasia and if she wanted ablation I would recommend IUD -mirena/liletta at same time even though this is considered off label use an rationale around this was reviewed. Idiscussed that hysterectomy was high risk and not indicated at this time without attempting more conservative options at this time. Ultrasound reviewed- ? Adenomyosis reviewed could fail ablation butdue to age and placement of IUD I think this is still reasonable option. Cbc,tsh reviewed. 5. After patient left office- I realized she did not have EMB documented in chart- I will discuss options for this at later date- she will need this done prior to ABLATION however If cervical os stenotic this could be difficult and not possible. 6. Will book for hysteroscopy d&C, Liletta IUD insertion with Amy ablation 7.aygestin tid ordered until surgery Medical Decision Making: Problems: Moderate: 1+ chronic illnesses with change Data: Unique test result(s) reviewed: 3+ Risk: Moderate: Drug management Medical Decision Making Level: 4 - Moderate Maxine Schuler MD documented in this encounterOhiohealth [facility]04-06-2023 Instructions* Patient Instructions* Casandar Salgado LPN - 08/17/2022 7:24 AM EDT POST IUD INSTRUCTIONS You may have irregular bleeding during the first 3 months of use. You may have mild-severe cramping for the next 48 hours. You may use over the counter medication (Motrin, Tylenol) as needed. Your IUD must be removed or replaced based on the following table: IUD Type Removed or replaced within: Rosio 3 years Kyleena 5 years Mirena 8 years Paragard 10 years Call my office for signs/symptoms of infection such as severe cramping, fever, or unusual bleeding. Check for string placement as instructed by your doctor. If you have any additional questions, please contact the office. documented in this encounterOhiohealth [facility]04-06-2023 History of Present illness Narrative* Bella Burkett APRN.CNP - 08/17/2022 7:21 AM EDT Bj presents today for IUD insertion for menstrual dysfunction. Patient's last menstrual period was 07/23/2022 (exact date). GC/chlamydia: Not done: no risk factors and/or patient declines screening test: pt declined, with vasectomy Side effects including irregular bleeding were discussed with the patient. The patient understands that it should be removed in 8 years or sooner if the patient desires a . IUD source: office provided IUD lot #: [id number] Exp date: 09/10/24 [facility] [id number] UNIVERSAL PROTOCOL / SAFETY CHECKLIST Procedure to be Performed: Mirena insertion Sign In: A Moment of CARE was completed. Personnel directly involved with the procedure wore the appropriate PPE (Personal Protective Equipment). Patient/Surrogate Stated/Verified: PATIENT VERIFIED(optional for EMERGENT procedures): Patient name, Date of , Relevant allergies, and The intended procedure Time Out Communication: Intended patient and procedure match the source documents. Consent documented and matches the intended procedure. Sign Out: SIGN OUT (optional for EMERGENT procedures): No specimen collected. No instruments, equipment or retained foreign bodies applicable. The cervix was prepped with betadine. Unable to dilate inner cervix to place IUD. Multiple attempt made. Patient tolerated procedure well. PLAN: Patient was advised to observe for signs and symptoms of infection including but not limited to fever, malodorous vaginal discharge and/or pain. The patient was told to check the string monthlyfor accurate placement. Bleeding expectations were reviewed. Follow up with doctor to discuss ablation/hysterectomy. Bella Burkett APRN.CNP documented in this encounterOhiohealth Nelson[facility] Center03-31-2023 Miscellaneous Notes* Telephone Encounter - Dee Dee Gordon RN - 08/11/2022 1:47 PM EDT Patient is now scheduled. Dee Dee Gordon RN * Telephone Encounter - Bella Burkett APRN.CNP - 08/11/2022 1:39 PM EDT I spoke with patient regarding ultrasound results. She would like to proceed with the Mirena insertion. Could you please contact the patient to get her scheduled with me. I have placed the orders. Bella Burkett APRN.CNP documented in this encounterOhiohealth Nelsonville [facility] Center03-31-2023 Miscellaneous Notes* Telephone Encounter - Rachael Cid RN - 08/11/2022 8:32 AM EDT Patient notified and voiced understanding. Rachael Cid RN * Telephone Encounter - Bella Burkett APRN.CNP - 08/11/2022 7:30 AM EDT Please let the patient know that all her lab values were within normal range. Bella Burkett APRN.CNP documented in this encounterOhiohealth Nelsonville [facility] Center11-27-2022 Miscellaneous Notes* Letter - Mammography Coordinator - 04/09/2022 3:13 PM EST April 09, 2022 PID: [id number] Bj Méndez [address] [place] [address] Dear Ms. Méndez, We are pleased to inform you that the results of your recent breast imaging exam on 04/07/2022 are normal. Early detection of cancer is very important. We also understand recommendations regarding breast cancer screening are controversial. Please discuss with your primary care provider which strategy is best for you and whether a mammogram is right for you. Your imaging studies and report will be kept on file at [facility] as part of your permanent medical record and are available for your continuing care. Thank you for allowing us to help in meeting your health care needs. Sincerely, Dr. Goodrich Interpreting Radiologist [facility] (Normal over 40) documented in this encounterOhiohealth Nelsonville [facility] Center11-25-2022 History of Present illness Narrative* Monika Fang RT(R) - 04/07/2022 12:50 PM EST Radiology Service Progress Note PATIENT NAME: Bj Méndez DATE OF SERVICE: April 07, 2022 TIME: 12:48 PM PATIENT IDENTITY VERIFICATION COMPLETED USING TWO (2) IDENTIFIERS: Name and Date of confirmedby patient verbally. FALL SCREENING: Has the patient had 2 falls in the last year or 1 fall with injury or currently using an Ambulatory Assistive Device (Walker, Cane, Wheelchair, Crutches, etc.)? No PATIENT GENDER DATA: Female. status: : No status: NO. PATIENT RELEVANT IMPLANT DATA REVIEWED: Not Applicable RADIOLOGY DEPARTMENT: Mammography PERIPHERAL IV DATA: Not applicable SIGNED BY: RT Alanna(R) April 07, 2022 12:48 PM documented in this encounterOhiohealth Nelsonville [facility] Center2022 Miscellaneous Notes* Telephone Encounter - Coty Sanchez RN - 03/02/2022 12:00 PM EDT Pt returned call, scheduled for in person visit Sunday. Pt does not have an active Mychart to do a virtual visit. * Telephone Encounter - Dee Dee Gordon RN - 03/02/2022 9:01 AM EDT Left message for patient to call office. Dee Dee Gordon RN * Telephone Encounter - Bella Burkett APRN.CNP - 03/02/2022 8:51 AM EDT I would like the pt to set up a VV to discuss her vulvar biopsy results. Bella Burkett APRN.CNP documented in this encounterOhiohealth Nelson[facility] Center10-12-2022 Instructions* Patient Instructions* Bella Burkett APRN.CNP - 02/22/2022 3:17 PM EDT VULVAR BIOPSY PATIENT INSTRUCTIONS Many conditions may cause your schedule manager to suggest a vulvar biopsy including vulvar itching unresponsive to therapy, ulcerated lesions, pigmented lesions, and tumors. The biopsy result will assist your schedule manager to devise a treatment plan suitable to your condition. 1. Usually, there is a local discomfort, swelling, and skin discoloration. Using cold compresses overnight usually alleviates the discomfort considerably. Warm compresses thereafter can be used as needed. Prescribed analgesic (pain killers) are not necessary. You may use Advil, Tylenol, etc. for pain relief. 2. You may shower or take tub baths. 3. If sutures are used, they will dissolve in 7-14 days. 4. You should call the office if there is excessive bleeding, swelling, fever, chills, sweats, or difficulty walking. 5. Biopsy results will be available in 7-10 days. If you have not heard your results in 2 weeks please contact your physician. Lichen Sclerosus Lichen means white and mosslike. Sclerosus means scarred. What is lichen sclerosus? This is a common disease of the genital skin in women. The areas involved are the vulva and marita-anal area. The vulva is the skin located at the entrance to the vagina. The skin in this area is highly specialized in that it performs many unique functions and to do so contains many glands and nerve endings. The covering skin is specialized also - in some areas thick and resilient, and in others thin and more fragile. Lichen sclerosus usually occurs on the vulva but can occur anywhere on the body. It can start at any age (even in childhood) but most commonly affects women 40 to 50 years of age. In this condition, the vulvar skin usually becomes thin, white, and fragile. If there has been a lot of scratching, the skin is thick and may be scarred. The cause is unknown. Very rarely, there can be a familial occurrence. It is not infectious and is not sexually transmitted. What are the symptoms? Usually, it starts with itching or burning. Other symptoms include painful intercourse, splitting of the skin, and bleeding. With time, the vulvar skin changes and becomes progressively more thick and white, and the small lips (the labia minora) begin to shrink and eventually disappear. The clitoris may become buried in the shrinking skin folds, and these folds can close over it. Rarely, the vaginal opening gradually shrinks. If the area is very itchy, the skin may be white and very thickened. This itching may be severe enough to wake you up at night. Scratching often can cause bruising. In young children, this bruising can result in a mistaken diagnosis of sexual abuse. Scratching or any irritation worsens this condition. Can lichen sclerosus be treated? The diagnosis usually must be first confirmed with a biopsy, and then therapy can be started. Treatment usually involves a topical cream or ointment in addition to general measures. A strong topical gdnkmbtqi-ycdqiekqzm-zr used to stop the inflammation that is attacking the skin cells in this area,causing the whitish discoloration, thinning, splitting, and scarring. This cortisone is often combined with an anti-yeast product-nystatin (Mycostatin) or ketoconazol (Nizoral). The ointment(s) are used for 12 to 16 weeks on a regular basis and then further treatments are individualized. Continued long-term daily treatment with this medication is not possible because it can cause thinning of the skin itself. After 12 to 16 weeks, when the area has improved, treatment is used intermittently, 1 to 3 times per week as needed, or only when needed. What else can I do? Avoid harsh and irritating soaps, detergents, and tight synthetic clothing that may rub or irritatethe area. To cleanse, use a mild cleaning lotion like Cetaphil cleanser or a very mild bar cleanser such as Dove (unscented) or Basis. Try not to scratch. Avoid using panty liners. How long will therapy be needed? Lichen sclerosus can be controlled. There is no definitive cure. With the previously described form of therapy, improvement is quite rapid in most cases and some people have been so improved that no further treatment has been needed. It is too early to call those patients cured; only time will tell. Most patients require maintenance treatment, using the ointment once a week or on an intermittent basis. Regular follow-up is necessary. Can I become and deliver a baby? Lichen sclerosus does not prevent you from becoming . It does not affect any of the tissuesinside you. You can continue your treatment throughout your with the supervision of you doctor. Problems are usually few with vaginal delivery, unless you have a lot of extensive scarring. Does this condition lead to cancer? Up to 5% of patients have developed skin cancer in the vulvar area associated with lichen sclerosus. Usually, they have had the condition, untreated, for years. We hope that early recognition and aggressive treatment will reduce or eliminate the risk of cancer. That is the reason close follow-up isessential. documented in this encounterOhiohealth Nelsonville [facility] Center10-12-2022 History of Present illness Narrative* Bella Burkett APRN.CNP - 02/22/2022 2:17 PM EDT Swage Tender offered: Patient declinesRosenda Moreira is a 46 year old who presents for an annual gynecologic exam with complaints, vulvar irritation on the right side where there was a MRSA infection at years ago. Right breast pain did have a red area that was warm touch. Menses: cycles every 25-30 days and 3-4 days of flow. Heavy flow Contraception: vasectomy HPV vaccine: No Last Pap: 2018 normal HPV: negative History of abnormal pap: No Last mammogram: 2020normal Sexually active: Yes Pain with intercourse: No Postcoital bleeding: No Hot flashes: Yes Night sweats: Yes OB History T2 L3 SAB0 IAB0 Ectopic0 Multiple1 Live Births3 Comment: Pt was twice, one set of twins, three children. 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 Comments: Sexual Activity: Yes; Male; has had Vasectomy Contraception: Vasectomy PAST MEDICAL HISTORY Diagnosis Date Backache, unspecified Depressive disorder, not elsewhere classified Female infertility of other specified origin Irritable bowel syndrome Unspecified closed fracture of ankle Right PAST SURGICAL HISTORY Procedure Laterality Date DELIVERY ONLY 04/2006 , low cervical FNA WITH IMAGING Right 04/29/15 U/S FNA upper mid right breast KNEE SURGERY HX Right 10/2016 miniscus repair LAP CHOLECYSTECT/CHOLANGIOGRAPHY 11-21-10 PAST SURGICAL HISTORY OF 1999 labral tear repair right shoulder PAST SURGICAL HISTORY OF 12/29 02/28 right knee surgery REMOVE TONSILS/ADENOIDS,<13 Y/O 89 Tonsil/adenoidectomy FAMILY HISTORY Problem Relation Age of Onset Hypertension Mother Hypertension Father Diabetes Maternal Grandfather Diabetes Paternal Grandfather Heart Paternal Grandfather Diabetes Paternal Grandmother heart, stroke Heart Paternal Grandmother Stroke Paternal Grandmother Colon Cancer Maternal Grandmother stomach/ colon Diabetes Maternal Grandmother Migraines Son SOCIAL HISTORY Social History Tobacco Use Smoking status: Never Smokeless tobacco: Never Vaping Use Vaping Use: Never used Substance Use Topics Alcohol use: No Drug use: No REVIEW OF SYSTEMS Abdomen: No abdominal pain, nausea, vomiting, diarrhea, or constipation. No bloating, early satiety, indigestion, or increased flatulence. Bladder: No dysuria, gross hematuria, urinary frequency, urinary urgency, +stress incontinence. Breast: No breast lumps, nipple d/c, overlying skin changes, redness or skin retraction. Allergies and current medication updated:Yes EXAM: LMP 01/23/2021 GENERAL: pleasant, female in no apparent distress HEENT: Normocephalic, atraumatic, mucus membranes moist, and no lesions NECK: Supple, full range of motion, no adenopathy, and thyroid normal DERMATOLOGY: Normal, without lesions, non-icteric, and non-hirsute BREAST: soft, non-tender, symmetric, no dominant mass, normal nipple-areolar complex, no lymphadenopathy, no nipple discharge, and fibrocystic changes CHEST: Normal inspiratory effort ABDOMEN: soft, non-tender, and no masses PELVIC: external genitalia normal, normal Bartholin's glands, urethra, [place]'s glands, no cervical lesions, physiologic discharge present, normal appearing perineal body and perianal region, right labia slightly swollen, red, slight white appearance with a rough texture. BIMANUAL: uterus normal size, shape and consistency, no adnexal masses, and non-tender RECTOVAGINAL: deferred. NEURO: alert and oriented x3,exam grossly non-focal EXTREMITIES: normal ASSESSMENT/PLAN: 1) Health maintenance: Pap/HPV up to date. Mammogram ordered. 2) Contraception: vasectomy. Contraceptive options reviewed and information provided. 3) STD screening: Declined STD check. 4) Follow up one year or sooner as needed 5) Discussed Mirena for the heavy bleeding, she is going to consider this option and will let me know. Bella Burkett APRN.CNP Bj Méndez is a 46 year old female who presents today for a vulvar biopsy. Indication: persistentpruritis. UNIVERSAL PROTOCOL / SAFETY CHECKLIST Procedure to be Performed: Vulvar biopsy Sign In: A Moment of CARE was completed. Personnel directly involved with the procedure wore the appropriate PPE (Personal Protective Equipment). Patient/Surrogate Stated/Verified: PATIENT VERIFIED(optional for EMERGENT procedures): Patient name, Date of , Relevant allergies, and The intended procedure Time Out Communication: Intended patient and procedure match the source documents. Consent documented and matches the intended procedure. Sign Out: SIGN OUT (optional for EMERGENT procedures): All specimen containers correctly labeled. All instruments, equipment, possible retained foreign bodies accounted for. Post-procedure follow-up management communicated and Plan of Care Visit completed when applicable. Bella Burkett APRN.CNP PROCEDURE NOTE: BIOPSY: Area was cleansed with betadine and anesthetized with 1mL 1% lidocaine with 1:100,000 epi. 4mm Bushnell punch used to biopsy region. HEMOSTASIS: Obtained with silver nitrate and pressure Procedure Summary: Patient tolerated procedure well. PLAN: Specimens labeled and sent to Pathology. Will notify patient of results in 1-2 weeks. Post-procedure instructions reviewed and written material given to the patient. - Started on clobetasol Bella Burkett APRN.CNP [facility] of Past illness Narrative* Problem Noted Date Resolved Date Supervision of other normal 09/29/2005 12/13/2009 documented as of this encounter (statuses as of 02/22/2022) [facility] of Past illness Narrative* Problem Noted Date Resolved Date Supervision of other normal 09/29/2005 12/13/2009 documented as of this encounter (statuses as of 03/02/2022) [address] History of Past illness Narrative* Problem Noted Date Resolved Date Supervision of other normal 09/29/2005 12/13/2009 documented as of this encounter (statuses as of 04/11/2022) [address] History of Past illness Narrative* Problem Noted Date Resolved Date Supervision of other normal 09/29/2005 12/13/2009 documented as of this encounter (statuses as of 08/11/2022) [address] History of Past illness Narrative* Problem Noted Date Resolved Date Supervision of other normal 09/29/2005 12/13/2009 documented as of this encounter (statuses as of 08/11/2022) [address] History of Past illness Narrative* Problem Noted Date Resolved Date Supervision of other normal 09/29/2005 12/13/2009 documented as of this encounter (statuses as of 08/11/2022) [address] History of Past illness Narrative* Problem Noted Date Resolved Date Supervision of other normal 09/29/2005 12/13/2009 documented as of this encounter (statuses as of 08/17/2022) [address] History of Past illness Narrative* Problem Noted Date Resolved Date Supervision of other normal 09/29/2005 12/13/2009 documented as of this encounter (statuses as of 09/01/2022) [address] History of Past illness Narrative* Problem Noted Date Resolved Date Supervision of other normal 09/29/2005 12/13/2009 documented as of this encounter (statuses as of 09/15/2022) [address] History of Past illness Narrative* Problem Noted Date Resolved Date Supervision of other normal 09/29/2005 12/13/2009 documented as of this encounter (statuses as of 09/19/2022) [address] History of Past illness Narrative* Problem Noted Date Resolved Date Supervision of other normal 09/29/2005 12/13/2009 documented as of this encounter (statuses as of 09/22/2022) [address] History of Past illness Narrative* Problem Noted Date Diagnosed Date Resolved Date Supervision of other normal 09/29/2005 12/13/2009 documented as of this encounter (statuses as of 01/23/2023) [address]19-2006 History of Past illness Narrative* Problem Noted Date Diagnosed Date Resolved Date Supervision of other normal 09/29/2005 12/13/2009 documented as of this encounter (statuses as of 02/03/2023) [address]19-2006 History of Past illness Narrative* Problem Noted Date Diagnosed Date Resolved Date Supervision of other normal 09/29/2005 12/13/2009 documented as of this encounter (statuses as of 03/18/2023) [address]19-2006 History of Past illness Narrative* Problem Noted Date Diagnosed Date Resolved Date Supervision of other normal 09/29/2005 12/13/2009 documented as of this encounter (statuses as of 07/22/2023) [address]19-2006 History of Past illness Narrative* Problem Noted Date Diagnosed Date Resolved Date Supervision of other normal 09/29/2005 12/13/2009 documented as of this encounter (statuses as of 07/25/2023) [facility] Diagnosis Encounter for gynecological examination (general) (routine) without abnormal findings- Primary Screening for cervical cancer Screening for malignant neoplasm of the cervix Encounter for screening mammogram for breast cancer Dense breast tissue Menorrhagia with regular cycle Excessive or frequent menstruation Vulvar irritation Other specified noninflammatory disorder of vulva and perineum documented [facility] this encounter [facility] Diagnosis Abnormal uterine bleeding (AUB)- Primary [facility]* Diagnosis Menorrhagia with regular cycle- Primary Excessive or frequent menstruation Adenomyosis Endometriosis of uterus [facility] Diagnosis Menorrhagia with regular cycle- Primary Excessive or frequent menstruation Adenomyosis Endometriosis of uterus documented [facility]* Diagnosis Abnormal uterine bleeding (AUB)- Primary Stenotic cervical os Stricture and stenosis of cervix Class 3 severe obesity with body mass index (BMI) of 50.0 to 59.9 in adult, unspecified obesity type, unspecified whether serious comorbidity present (HCC) documented [facility] this encounter [facility]* Diagnosis Onset Date Resolution Status Abnormal uterine bleeding ac kletsel dehe wintun [facility] Work Phone: Evaluation note* Diagnosis Onset Date Resolution Status Abnormal uterine bleeding ac k[place] dehe [place] Abnormal uterine bleeding ac k[place] BMI 50.0-59.9, adult acute Other obesity acute Snoring acute Daytime hypersomnia acute Other obesity acute [facility] Work Phone: Evaluation note* Diagnosis Onset Date Resolution Status Abnormal uterine bleeding ac [place] BMI 50.0-59.9, adult acute Other obesity acute Snoring acute Daytime hypersomnia acute Other obesity acute Abnormal uterine bleeding ac [place] BMI 50.0-59.9, adult acute High cholesterol acute Metabolic syndrome acute Other obesity acute Snoring acute [facility] Work Phone: Evaluation note* Diagnosis Abnormal uterine bleeding (AUB) documented in this encounter [facility] note* Diagnosis Sore throat- Primary Acute pharyngitis Left acute suppurative otitis media Acute suppurative otitis media without spontaneous rupture of eardrum Impacted cerumen of left ear Impacted cerumen documented in this encounter [facility] note* Diagnosis Encounter for screening mammogram for breast cancer Dense breast tissue documented in this encounter [facility] note* Diagnosis Urinary frequency- Primary documented in this encounter [facility] note* Diagnosis Onset Date Resolution Status BMI 50.0-59.9, adult acute High cholesterol acute Metabolic syndrome acute Other obesity acute Snoring acute [facility] Work Phone: Evaluation note* Diagnosis Lower resp. tract infection- Primary Other diseases of respiratory system, not elsewhere classified Sore throat Acute pharyngitis documented in this encounter [facility] for referral (narrative)* Diagnostic Procedure Only (Routine) - Authorized Specialty Diagnoses / Procedures Referred By Margarito t Referred To Contact [facility] Diagnoses Encounter for screening mammogram for breast cancer Dense breast tissue Procedures AMARI SCREENING W BRENT SCREENING DIGITAL BREAST TOMOSYNTHESIS BI SCREENING MAMMOGRAPHY BI 2-VIEW BREAST INC Bella Ellison, ABELARDO.CUTTING MACHINE TENDER HELPER [address] [place] [address] [facility] [address] [place] [address] Referral ID Status Reason Start Date Expiration Date Visits Requested Visits Authorized [id number] Authorized Auto-Generat ed Referral 03/24/2023 1 1 [facility] for referral (narrative)* Outpatient Procedure (Routine) - Pending Review Specialty Diagnoses / Procedures Referred By Margarito t Referred To Contact [facility] Diagnoses Menorrhagia with regular cycle Adenomyosis Procedures INSERT INTRAUTERINE DEVICE LEVONORGESTREL IU 52MG 5 YR INSERT INTRAUTERINE DEVICE Bella Burkett APRN.CNP [address] [facility] [place] [address] [facility] [address] [place] [address] Referral ID Status Reason Start Date Expiration Date Visits Requested Visits Authorized [id number] Pending Review Auto-Generat ed Referral 08/11/2022 08/11/2023 1 [facility] Diagnostic Procedure Only (Routine) - Closed Specialty Diagnoses / Procedures Referred By Margarito t Referred To Contact [facility] Diagnoses Encounter for screening mammogram for breast cancer Dense breast tissue Procedures AMARI SCREENING W BRENT SCREENING DIGITAL BREAST TOMOSYNTHESIS BI SCREENING MAMMOGRAPHY BI 2-VIEW BREAST INC CAD Bella Burkett APRN.CUTTING MACHINE TENDER HELPER [address] [place] [address] [facility] [address] [place] [id number] Referral ID Status Reason Start Date Expiration Date V isits Requested Visits Authorized [id number] Closed Auto-Generate d Referral 02/22/2022 03/24/2023 1 1 [facility]No reason for referral information availableSt[facility] Work Phone: Revspg for visit Narrative* Diagnostic Procedure Only (Routine) - Closed Specialty Diagnoses / Procedures Referred By Margarito t Referred To Contact [facility] Diagnoses Abnormal uterine bleeding (AUB) Procedures PELVIC US WHI US PELVIC NONOBSTETRIC REAL-TIME IMAGE COMPLETE Bella Burkett, [employer].CUTTING MACHINE TENDER HELPER [address] [place] [address] [facility] [address] [place] [address] Referral ID Status Reason Start Date Expiration Date V isits Requested Visits Authorized [id number] Closed Auto-Generate d Referral 08/10/2022 08/10/2023 1 1 [facility]* Diagnostic Procedure Only (Routine) - Closed Specialty Diagnoses / Procedures Referred By Margarito t Referred To Contact [facility] Diagnoses Encounter for screening mammogram for breast cancer Dense breast tissue Procedures AMARI SCREENING W BRENT SCREENING DIGITAL BREAST TOMOSYNTHESIS BI SCREENING MAMMOGRAPHY BI 2-VIEW BREAST INC CAD Bella Burkett, [employer] INTER[employer].CUTTING MACHINE TENDER HELPER [address] [place] [address] [facility] [address] [place] [address] Referral ID Status Reason Start Date Expiration Date V isits Requested Visits Authorized [id number] Closed Auto-Generate d Referral 02/22/2022 03/24/2023 1 1 [facility] Chief Complaint and Reason for Visit Chief Complaint second opinion for b leeding, ok per sm Reason for Visit Abnormal uterine ble eding Chief Complaint second opinion for b leeding, ok per sm AUB f/u OTHER OBESITY Sleep apnea Reason for Visit Abnormal uterine ble eding Abnormal uterine bleeding BMI 50.0-59.9, adult Other obesity Snoring Daytime hypersomnia Other obesity Chief Complaint second opinion for b leeding, ok per sm AUB f/u OTHER OBESITY Sleep apnea MORBID OBESITY Reason for Visit Abnormal uterine ble eding Abnormal uterine bleeding BMI 50.0-59.9, adult Other obesity Snoring Daytime hypersomnia Other obesity Chief Complaint AUB f/u OTHER OBESITY Obesity Sleep apnea MORBID OBESITY Hypersomnia, unspecified Weight Management Consult MORBID OBESITY Reason for Visit Abnormal uterine ble eding BMI 50.0-59.9, adult Other obesity Snoring Daytime hypersomnia Other obesity Abnormal uterine bleeding BMI 50.0-59.9, adult High cholesterol Metabolic syndrome Other obesity Snoring Chief Complaint AUB f/u OTHER OBESITY Obesity Sleep apnea MORBID OBESITY Hypersomnia, unspecified Weight Management Consult MORBID OBESITY MORBID OBESITY Reason for Visit Abnormal uterine ble eding BMI 50.0-59.9, adult Other obesity Snoring Daytime hypersomnia Other obesity Abnormal uterine bleeding BMI 50.0-59.9, adult High cholesterol Metabolic syndrome Other obesity Snoring Chief Complaint 1 M FU missed appt o n 03/26 Reason for Visit BMI 50.0-59.9, adult High cholesterol Metabolic syndrome Other obesity Snoring Chief Complaint Admit Date 12 WK F/U WM CK June 12, 2024 3 :31pm 4 WK MED CHECK July 10, 2024 10:31am 1WK CK July 16, 2024 2:03 pm BP HIGH, FAST HEART RATE(KRYSTA) August 13, 2024 8:53am INT LABS August 13, 2024 9:37 am Reason for Visit Admit Date Abnormal uterine bleeding June 12, 2024 3:31pm Depression June 12, 2024 3 :31pm High cholesterol June 12, 2024 3 :31pm Metabolic syndrome June 12, 2024 3 :31pm Obesity, morbid, BMI 40.0-49.9 May 162024 3:31pm Other obesity June 12, 2024 3 :31pm Tachycardia June 12, 2024 3 :31pm Abnormal uterine bleeding July 10, 2024 10:31am Depression July 10, 2024 10:31am High cholesterol July 10, 2024 10:31am Metabolic syndrome July 10, 2024 10:31am Obesity, morbid, BMI 40.0-49.9 July 10, 2024 10:31am Other obesity July 10, 2024 10:31am Tachycardia July 10, 2024 10:31am Abnormal uterine bleeding July 16 2:03pm Depression July 16, 2024 2:03 pm High cholesterol July 16, 2024 2:03 pm Metabolic syndrome July 16, 2024 2:03 pm Obesity, morbid, BMI 40.0-49.9 July 2:03pm Other obesity July 16, 2024 2:03 pm Tachycardia July 16, 2024 2:03 pm Tachycardia August 13, 2024 8:53 am Dyspnea on exertion August 13, 2024 8:53 am Excessive caffeine intake August 13 8:53am Morbid obesity with BMI of 40.0-44.9, ad ult August 13, 2024 8:53am Chief Complaint Admit Date 12 WK F/U WM CK June 12, 2024 3 :31pm 4 WK MED CHECK July 10, 2024 10:31am 1WK CK July 16, 2024 2:03 pm BP HIGH, FAST HEART RATE(KRYSTA) August 13, 2024 8:53am INT LABS August 13, 2024 9:37 am SOB, ABNORMAL ECG September 15, 2024 6:21am SOB, ABNORMAL ECG September 15, 2024 9:16am Chief Complaint Admit Date 4 WK MED CHECK July 10, 2024 10:31am 1WK CK July 16, 2024 2:03 pm BP HIGH, FAST HEART RATE(KRYSTA) August 13, 2024 8:53am INT LABS August 13, 2024 9:37 am SOB, ABNORMAL ECG September 15, 2024 6:21am SOB, ABNORMAL ECG September 15, 2024 9:16am med check October 14, 2024 2:33p m Reason for Visit Admit Date Abnormal uterine bleeding July 10, 2024 10:31am Depression July 10, 2024 10:31am High cholesterol July 10, 2024 10:31am Metabolic syndrome July 10, 2024 10:31am Obesity, morbid, BMI 40.0-49.9 July 10, 2024 10:31am Other obesity July 10, 2024 10:31am Tachycardia July 10, 2024 10:31am Abnormal uterine bleeding July 16 2:03pm Depression July 16, 2024 2:03 pm High cholesterol July 16, 2024 2:03 pm Metabolic syndrome July 16, 2024 2:03 pm Obesity, morbid, BMI 40.0-49.9 July 2:03pm Other obesity July 16, 2024 2:03 pm Tachycardia July 16, 2024 2:03 pm Tachycardia August 13, 2024 8:53 am Dyspnea on exertion August 13, 2024 8:53 am Excessive caffeine intake August 13 8:53am Morbid obesity with BMI of 40.0-44.9, ad ult August 13, 2024 8:53am Abnormal uterine bleeding October 14, 2024 2:33pm Depression October 14, 2024 2:33p m High cholesterol October 14, 2024 2:33p m Metabolic syndrome October 14, 2024 2:33p m Obesity, morbid, BMI 40.0-49.9 October 14, 2024 2:33pm Other obesity October 14, 2024 2:33p m Tachycardia October 14, 2024 2:33p m Chief Complaint Admit Date 4 WK MED CHECK July 10, 2024 10:31am 1WK CK July 16, 2024 2:03 pm BP HIGH, FAST HEART RATE(KRYSTA) August 13, 2024 8:53am INT LABS August 13, 2024 9:37 am SOB, ABNORMAL ECG September 15, 2024 6:21am SOB, ABNORMAL ECG September 15, 2024 9:16am med check October 14, 2024 2:33p m AFIB October 27, 2024 7:22 am Chief Complaint Admit Date BP HIGH, FAST HEART RATE(KRYSTA) August 13, 2024 8:53am INT LABS August 13, 2024 9:37 am SOB, ABNORMAL ECG September 15, 2024 6:21am SOB, ABNORMAL ECG September 15, 2024 9:16am med check October 14, 2024 2:33p m AFIB October 27, 2024 7:22 am TACHY October 27, 2024 7:38 am 3 M FU November 18, 2024 1:09p m Reason for Visit Admit Date Tachycardia August 13, 2024 8:53 am Dyspnea on exertion August 13, 2024 8:53 am Excessive caffeine intake August 13 8:53am Morbid obesity with BMI of 40.0-44.9, ad ult August 13, 2024 8:53am Abnormal uterine bleeding October 14, 2024 2:33pm Depression October 14, 2024 2:33p m High cholesterol October 14, 2024 2:33p m Metabolic syndrome October 14, 2024 2:33p m Obesity, morbid, BMI 40.0-49.9 October 14, 2024 2:33pm Other obesity October 14, 2024 2:33p m Tachycardia October 14, 2024 2:33p m Tachycardia November 18, 2024 1:09p m Dyspnea on exertion November 18, 2024 1:09p m Morbid obesity with BMI of 40.0-44.9, ad ult November 18, 2024 1:09pm Chief Complaint Admit Date SOB, ABNORMAL ECG September 15, 2024 6:21am SOB, ABNORMAL ECG September 15, 2024 9:16am med check October 14, 2024 2:33p m AFIB October 27, 2024 7:22 am TACHY October 27, 2024 7:38 am 3 M FU November 18, 2024 1:09p m 4wk FU *per CB December 17, 2024 3:0 0pm Reason for Visit Admit Date Abnormal uterine bleeding October 14, 2024 2:33pm Depression October 14, 2024 2:33p m High cholesterol October 14, 2024 2:33p m Metabolic syndrome October 14, 2024 2:33p m Obesity, morbid, BMI 40.0-49.9 October 14, 2024 2:33pm Other obesity October 14, 2024 2:33p m Tachycardia October 14, 2024 2:33p m Tachycardia November 18, 2024 1:09p m Morbid obesity with BMI of 40.0-44.9, ad ult November 18, 2024 1:09pm Abnormal uterine bleeding December 17 3:00pm Depression December 17, 2024 3:0 0pm High cholesterol December 17, 2024 3:0 0pm Metabolic syndrome December 17, 2024 3:0 0pm Obesity, morbid, BMI 40.0-49.9 December 3:00pm Other obesity December 17, 2024 3:0 0pm Tachycardia December 17, 2024 3:0 0pm Chief Complaint Admit Date med check October 14, 2024 2:33p m AFIB October 27, 2024 7:22 am TACHY October 27, 2024 7:38 am 3 M FU November 18, 2024 1:09p m 4wk FU *per CB December 17, 2024 3:0 0pm 4 WK F/U *Per CB January 22, 2025 12:57pm Reason for Visit Admit Date Abnormal uterine bleeding October 14, 2024 2:33pm Depression October 14, 2024 2:33p m High cholesterol October 14, 2024 2:33p m Metabolic syndrome October 14, 2024 2:33p m Obesity, morbid, BMI 40.0-49.9 October 14, 2024 2:33pm Other obesity October 14, 2024 2:33p m Tachycardia October 14, 2024 2:33p m Tachycardia November 18, 2024 1:09p m Morbid obesity with BMI of 40.0-44.9, ad ult November 18, 2024 1:09pm Abnormal uterine bleeding December 17 3:00pm Depression December 17, 2024 3:0 0pm High cholesterol December 17, 2024 3:0 0pm Metabolic syndrome December 17, 2024 3:0 0pm Obesity, morbid, BMI 40.0-49.9 December 3:00pm Other obesity December 17, 2024 3:0 0pm Tachycardia December 17, 2024 3:0 0pm Abnormal uterine bleeding January 12:57pm Depression January 22, 2025 12:57pm High cholesterol January 22, 2025 12:57pm Metabolic syndrome January 22, 2025 12:57pm Obesity, morbid, BMI 40.0-49.9 January 22, 2025 12:57pm Other obesity January 22, 2025 12:57pm Tachycardia January 22, 2025 12:57pm Advance Directives No Advanced Directives Records Found Advance Directive Response Recorded Date/ Time Living Will Yes December 14, 2017 2:58pm Power of Airline Pilot/First Officer Yes December 14 2:58pm Advance Directive Response Recorded Date/ Time Living Will Yes February 22 3:34pm Power of Airline Pilot/First Officer Yes February 22, 2023 3:34pm Advance Directive Response Recorded Date/ Time Living Will Yes February 22 3:34pm Do you have a Healthcare Power of Airline Pilot/First Officer? Yes February 22, 2023 3:34pm Summary Purpose Family History Family Member Condition Father High blood pressure Full Sister No Medical History Father Obesity Father Alive Mother Arthritis Mother Obesity Mother Alive No Family History Records Found Additional Source Comments Source Comments (unrecognize d section and content) In the event this informatio n is protected by the Federal Confidentiality of Alcohol and Drug Abuse Patient Records regulations: The Federal rules restrict any use of the information to criminally investigate or prosecute any alcohol or drug abuse patient.[facility] the event this information is protected by the Federal Confidentiality of Alcohol and Drug Abuse Patient Records regulations: The Federal rules restrict any use of the information to criminally investigate or prosecute any alcohol or drug abuse patient.[facility] the event this information is protected by the Federal Confidentiality of Alcohol and Drug Abuse Patient Records regulations: The Federal rules restrict any use of the information to criminally investigate or prosecute any alcohol or drug abuse patient.[facility] the event this information is protected by the Federal Confidentiality of Alcohol and Drug Abuse Patient Records regulations: The Federal rules restrict any use of the information to criminally investigate or prosecute any alcohol or drug abuse patient.[facility] the event this information is protected by the Federal Confidentiality of Alcohol and Drug Abuse Patient Records regulations: The Federal rules restrict any use of the information to criminally investigate or prosecute any alcohol or drug abuse patient.[facility] the event this information is protected by the Federal Confidentiality of Alcohol and Drug Abuse Patient Records regulations: The Federal rules restrict any use of the information to criminally investigate or prosecute any alcohol or drug abuse patient.[facility] Center[facility] the event this information is protected by the Federal Confidentiality of Alcohol and Drug Abuse Patient Records regulations: The Federal rules restrict any use of the information to criminally investigate or prosecute any alcohol or drug abuse patient.[facility] CenterIn the event this information is protected by the Federal Confidentiality of Alcohol and Drug Abuse Patient Records regulations: The Federal rules restrict any use of the information to criminally investigate or prosecute any alcohol or drug abuse patient.[facility] CenterIn the event this information is protected by the Federal Confidentiality of Alcohol and Drug Abuse Patient Records regulations: The Federal rules restrict any use of the information to criminally investigate or prosecute any alcohol or drug abuse patient.[facility] CenterIn the event this information is protected by the Federal Confidentiality of Alcohol and Drug Abuse Patient Records regulations: The Federal rules restrict any use of the information to criminally investigate or prosecute any alcohol or drug abuse patient.[facility] CenterIn the event this information is protected by the Federal Confidentiality of Alcohol and Drug Abuse Patient Records regulations: The Federal rules restrict any use of the information to criminally investigate or prosecute any alcohol or drug abuse patient.[facility] CenterIn the event this information is protected by the Federal Confidentiality of Alcohol and Drug Abuse Patient Records regulations: The Federal rules restrict any use of the information to criminally investigate or prosecute any alcohol or drug abuse patient.[facility] CenterIn the event this information is protected by the Federal Confidentiality of Alcohol and Drug Abuse Patient Records regulations: The Federal rules restrict any use of the information to criminally investigate or prosecute any alcohol or drug abuse patient.[facility] CenterIn the event this information is protected by the Federal Confidentiality of Alcohol and Drug Abuse Patient Records regulations: The Federal rules restrict any use of the information to criminally investigate or prosecute any alcohol or drug abuse patient.[facility] CenterIn the event this information is protected by the Federal Confidentiality of Alcohol and Drug Abuse Patient Records regulations: The Federal rules restrict any use of the information to criminally investigate or prosecute any alcohol or drug abuse patient.[facility] CenterIn the event this information is protected by the Federal Confidentiality of Alcohol and Drug Abuse Patient Records regulations: The Federal rules restrict any use of the information to criminally investigate or prosecute any alcohol or drug abuse patient.[facility] CenterIn the event this information is protected by the Federal Confidentiality of Alcohol and Drug Abuse Patient Records regulations: The Federal rules restrict any use of the information to criminally investigate or prosecute any alcohol or drug abuse patient.[facility] Reason for Visit (unrecogniz ed section and content) 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 Reason Comments Results Reason Comments 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 UP REP Ultrasound Reason Comments Results Reason Onset Date Comments Insertion Of IUD Insertion Of IUD 08/17/2022 Specialty Diagnoses / Procedures Referred By Margarito pavon Referred To Contact [facility] Diagnoses Menorrhagia with regular cycle Adenomyosis Procedures INSERT INTRAUTERINE DEVICE LEVONORGESTREL IU 52MG 5 YR INSERT INTRAUTERINE DEVICE Bella Burkett APRN.CUTTING MACHINE TENDER HELPER [address] [facility] [place] [address] [facility] [address] [facility] [place] [address] Referral ID Status Reason Start Date Expiration Date Visits Requested Visits Authorized [id number] Authorized Auto-Generat ed Referral 05/14/2022 05/13/2023 2 2 Reason Comments Appointment Reason Comments Schedule Surgery Reason Comments Refill Request Reason Comments Cough Congestion x2 weeks, ST x3 days Reason Comments Urinary Frequency burning with urinati on x 4 days Reason Comments Results Urine Cx negative Reason Comments Chest Congestion cough x 3 days Care Teams (unrecognized sec tion and content) President Sales And Marketing Relationship Specialty Start Date End Date Sada Kruger MD [address] [place], [place] [id number] PCP - General 12/03/08 President Sales And Marketing Relationship Specialty Start Date End Date Sada Kruger MD [address] [place], [place] [id number] PCP - General 12/03/08 President Sales And Marketing Relationship Specialty Start Date End Date Sada Kruger MD [address] [place], [place] [id number] PCP - General 12/03/08 President Sales And Marketing Relationship Specialty Start Date End Date Sada Kruger MD [address] [facility] [place] [address] PCP - General 12/03/08 President Sales And Marketing Relationship Specialty Start Date End Date Sada Kruger MD [address] [facility] [place] [address] PCP - General 12/03/08 President Sales And Marketing Relationship Specialty Start Date End Date Sada Kruger MD [address] [facility] [place] [address] PCP - General 12/03/08 Team Status: Active Member Role Status Dates Dr. Cal Kruger MD Family Provider Active Dr. Cal Kruger MD Primary Care Provider Activ e Team Status: Inactive Member Role Status Dates Dr. Cal Kruger MD Primary Care Provider, Refe rring Provider Active Dr. Monique Evans MD Attending Provider Active Team Status: Inactive Member Role Status Dates Dr. Cal Kruger MD Primary Care Provider Activ e Dr. Monique Evans MD Attending Provider Active President Sales And Marketing Relationship Specialty Start Date End Date Sada Kruger MD [address] [facility] [place] [address] PCP - General 12/03/08 President Sales And Marketing Relationship Specialty Start Date End Date Sada Kruger MD [address] [facility] [place] [place] [address] PCP - General 12/03/08 Team Status: Inactive Member Role Status Dates Dr. Cal Kruger MD Primary Care Provider, Refe rring Provider Active Umu Quevedo CROP PEST CONTROL SPECIALIST, CROP PEST CONTROL SPECIALIST-C Attending Provider Active Team Status: Active Member Role Status Dates Dr. Cal Kruger MD Family Provider Active Dr. Jose Echeverria MD Primary Care Provider Active Team Status: Inactive Member Role Status Dates Dr. Monique Evans MD Attending Provider, Referr ing Provider Active Dr. Jose Echeverria MD Primary Care Provider Active Team Status: Inactive Member Role Status Dates Dr. Cal Kruger MD Referring Provider Active Dr. Monique Evans MD Attending Provider Active Dr. Jose Echeverria MD Primary Care Provider Active Team Status: Active Member Role Status Dates Dr. Cal Kruger MD Primary Care Provider Activ e Dr. Toney Cason MD Attending Provider Active Dr. Monique Evans MD Referring Provider Active Team Status: Inactive Member Role Status Dates Umu Quevedo CROP PEST CONTROL SPECIALIST, CROP PEST CONTROL SPECIALIST-C Attending Provider, Referrin g Provider Active Dr. Jose Echeverria MD Primary Care Provider Active President Sales And Marketing Relationship Specialty Start Date End Date Sada Kruger MD [address] [facility] [place] [address] PCP - General 12/03/08 President Sales And Marketing Relationship Specialty Start Date End Date Sada Kruger MD [address] [place] [address] PCP - General 12/03/08 President Sales And Marketing Relationship Specialty Start Date End Date Sada Kruger MD [address] [facility] [place] [address] PCP - General 12/03/08 President Sales And Marketing Relationship Specialty Start Date End Date Sada Kruger MD [address] [facility] [place] [address] PCP - General 12/03/08 Team Status: Inactive Member Role Status Dates Dr. Jose Echeverria MD Primary Care Provider, Referring Provider Active Dr. Monique Evans MD Attending Provider Active Team Status: Inactive Member Role Status Dates Dr. Jose Echeverria MD Primary Care Provider, Attending Provider Active Team Status: Active Member Role Status Dates Dr. Sada Kruger MD Family Provider Active Dr. Jose Echeverria MD Primary Care Provider Active Team Status: Inactive Member Role Status Dates Dr. Jose Echeverria MD Primary Care Provider Active Start: June 12, 2024 End: June 12, 2024 Dr. Jose Echeverria MD Referring Provider Active Start: June 12, 2024 End: June 12, 2024 SORAYA Julien Attending Provider Active Start: June 12, 2024 End: June 12, 2024 Team Status: Inactive Member Role Status Dates Dr. Jose Echeverria MD Primary Care Provider Active Start: July 10, 2024 End: July 10, 2024 Dr. Jose Echeverria MD Referring Provider Active Start: July 10, 2024 End: July 10, 2024 SORAYA Julien Attending Provider Active Start: July 10, 2024 End: July 10, 2024 Team Status: Inactive Member Role Status Dates Dr. Jose Echeverria MD Primary Care Provider Active Start: July 16, 2024 End: July 16, 2024 Dr. Jose Echeverria MD Referring Provider Active Start: July 16, 2024 End: July 16, 2024 SORAYA Julien Attending Provider Active Start: July 16, 2024 End: July 16, 2024 Team Status: Inactive Member Role Status Dates Dr. Jose Echeverria MD Primary Care Provider Active Start: August 13, 2024 End: August 13, 2024 Dr. Jose Echeverria MD Referring Provider Active Start: August 13, 2024 End: August 13, 2024 Dr. Sienna James MD Attending Provider Active Start: August 13, 2024 End: August 13, 2024 Team Status: Inactive Member Role Status Dates Dr. Jose Echeverria MD Primary Care Provider Active Start: August 13, 2024 End: August 13, 2024 Dr. Sienna James MD Attending Provider Active Start: August 13, 2024 End: August 13, 2024 Dr. Sienna James MD Referring Provider Active Start: August 13, 2024 End: August 13, 2024 Team Status: Active Member Role Status Dates Dr. Jose Echeverria MD Primary Care Provider Active Team Status: Inactive Member Role Status Dates Dr. Jose Echeverria MD Primary Care Provider Active Start: September 15, 2024 End: September 15, 2024 Dr. Jose Echeverria MD Referring Provider Active Start: September 15, 2024 End: September 15, 2024 Dr. Sienna James MD Attending Provider Active Start: September 15, 2024 End: September 15, 2024 Team Status: Active Member Role Status Dates Dr. Jose Echeverria MD Primary Care Provider Active Start: September 15, 2024 Dr. Jose Echeverria MD Referring Provider Active Start: September 15, 2024 Dr. Sienna James MD Attending Provider Active Start: September 15, 2024 Dr. Sienna James MD Other Provider Active Star t: September 15, 2024 Team Status: Inactive Member Role Status Dates Dr. Jose Echeverria MD Primary Care Provider Active Start: October 14, 2024 End: October 14, 2024 Dr. Jose Echeverria MD Referring Provider Active Start: October 14, 2024 End: October 14, 2024 Loreta Salazar CROP PEST CONTROL SPECIALIST-C Attending Provider Active Start: October 14, 2024 End: October 14, 2024 Team Status: Inactive Member Role Status Dates Dr. Jose Echeverria MD Primary Care Provider Active Start: October 17, 2024 End: October 17, 2024 Dr. Jose Echeverria MD Attending Provider Active Start: October 17, 2024 End: October 17, 2024 Dr. Jose Echeverria MD Referring Provider Active Start: October 17, 2024 End: October 17, 2024 Team Status: Inactive Member Role Status Dates Dr. Jose Echeverria MD Primary Care Provider Active Start: October 27, 2024 End: October 27, 2024 Ke Newman CROP PEST CONTROL SPECIALIST, CROP PEST CONTROL SPECIALIST-C Attending Provider Active S tart: October 27, 2024 End: October 27, 2024 Ke Newman CROP PEST CONTROL SPECIALIST, CROP PEST CONTROL SPECIALIST-C Referring Provider Active S tart: October 27, 2024 End: October 27, 2024 Team Status: Active Member Role/Relationship Status Dates Dr. Jose Echeverria MD Primary Care Provider Active Team Status: Inactive Member Role/Relationship Status Dates Dr. Jose Echeverria MD Primary Care Provider Active Start: August 13, 2024 End: August 13, 2024 Dr. Jose Echeverria MD Referring Provider Active Start: August 13, 2024 End: August 13, 2024 Dr. Sienna James MD Attending Provider Active Start: August 13, 2024 End: August 13, 2024 Team Status: Inactive Member Role/Relationship Status Dates Dr. Jose Echeverria MD Primary Care Provider Active Start: August 13, 2024 End: August 13, 2024 Dr. Sienna James MD Attending Provider Active Start: August 13, 2024 End: August 13, 2024 Dr. Sienna James MD Referring Provider Active Start: August 13, 2024 End: August 13, 2024 Team Status: Inactive Member Role/Relationship Status Dates Dr. Jose Echeverria MD Primary Care Provider Active Start: September 15, 2024 End: September 15, 2024 Dr. Jose Echeverria MD Referring Provider Active Start: September 15, 2024 End: September 15, 2024 Dr. Sienna James MD Attending Provider Active Start: September 15, 2024 End: September 15, 2024 Team Status: Active Member Role/Relationship Status Dates Dr. Jose Echeverria MD Primary Care Provider Active Start: September 15, 2024 Dr. Jose Echeverria MD Referring Provider Active Start: September 15, 2024 Dr. Sienna James MD Attending Provider Active Start: September 15, 2024 Dr. Sienna James MD Other Provider Active Star t: September 15, 2024 Team Status: Inactive Member Role/Relationship Status Dates Dr. Jose Echeverria MD Primary Care Provider Active Start: October 14, 2024 End: October 14, 2024 Dr. Jose Echeverria MD Referring Provider Active Start: October 14, 2024 End: October 14, 2024 PAKO JulienC Attending Provider Active Start: October 14, 2024 End: October 14, 2024 Team Status: Inactive Member Role/Relationship Status Dates Dr. Jose Echeverria MD Primary Care Provider Active Start: October 17, 2024 End: October 17, 2024 Dr. Jose Echeverria MD Attending Provider Active Start: October 17, 2024 End: October 17, 2024 Dr. Jose Echeverria MD Referring Provider Active Start: October 17, 2024 End: October 17, 2024 Team Status: Inactive Member Role/Relationship Status Dates Dr. Jose Echeverria MD Primary Care Provider Active Start: October 27, 2024 End: October 27, 2024 Ke Newman CROP PEST CONTROL SPECIALIST, CROP PEST CONTROL SPECIALIST-C Attending Provider Active S tart: October 27, 2024 End: October 27, 2024 Ke Newman CROP PEST CONTROL SPECIALIST, CROP PEST CONTROL SPECIALIST-C Referring Provider Active S tart: October 27, 2024 End: October 27, 2024 Team Status: Active Member Role/Relationship Status Dates Dr. Jose Echeverria MD Primary Care Provider Active Start: October 27, 2024 Dr. Sienna James MD Attending Provider Active Start: October 27, 2024 Ke Newman CROP PEST CONTROL SPECIALIST, CROP PEST CONTROL SPECIALIST-C Referring Provider Active S tart: October 27, 2024 Team Status: Inactive Member Role/Relationship Status Dates Dr. Jose Echeverria MD Primary Care Provider Active Start: November 18, 2024 End: November 18, 2024 Dr. Jose Echeverria MD Referring Provider Active Start: November 18, 2024 End: November 18, 2024 Lucy Ashley CROP PEST CONTROL SPECIALIST, CROP PEST CONTROL SPECIALIST-C Attending Provider Active Start: November 18, 2024 End: November 18, 2024 Team Status: Inactive Member Role/Relationship Status Dates Dr. Jose Echeverria MD Primary Care Provider Active Start: September 15, 2024 End: September 15, 2024 Dr. Jose Echeverria MD Referring Provider Active Start: September 15, 2024 End: September 15, 2024 Dr. Sienna James MD Attending Provider Active Start: September 15, 2024 End: September 15, 2024 Team Status: Active Member Role/Relationship Status Dates Dr. Jose Echeverria MD Primary Care Provider Active Start: September 15, 2024 Dr. Jose Echeverria MD Referring Provider Active Start: September 15, 2024 Dr. Sienna James MD Attending Provider Active Start: September 15, 2024 Dr. Sienna James MD Other Provider Active Star t: September 15, 2024 Team Status: Inactive Member Role/Relationship Status Dates Dr. Jose Echeverria MD Primary Care Provider Active Start: October 14, 2024 End: October 14, 2024 Dr. Jose Echeverria MD Referring Provider Active Start: October 14, 2024 End: October 14, 2024 PAKO JulienC Attending Provider Active Start: October 14, 2024 End: October 14, 2024 Team Status: Inactive Member Role/Relationship Status Dates Dr. Jose Echeverria MD Primary Care Provider Active Start: October 17, 2024 End: October 17, 2024 Dr. Jose Echeverria MD Attending Provider Active Start: October 17, 2024 End: October 17, 2024 Dr. Jose Echeverria MD Referring Provider Active Start: October 17, 2024 End: October 17, 2024 Team Status: Inactive Member Role/Relationship Status Dates Dr. Jose Echeverria MD Primary Care Provider Active Start: October 27, 2024 End: October 27, 2024 Ke Newman CROP PEST CONTROL SPECIALIST, CROP PEST CONTROL SPECIALIST-C Attending Provider Active S tart: October 27, 2024 End: October 27, 2024 Ke Newman CROP PEST CONTROL SPECIALIST, CROP PEST CONTROL SPECIALIST-C Referring Provider Active S tart: October 27, 2024 End: October 27, 2024 Team Status: Active Member Role/Relationship Status Dates Dr. Jose Echeverria MD Primary Care Provider Active Start: October 27, 2024 Dr. Sienna James MD Attending Provider Active Start: October 27, 2024 Ke Newman CROP PEST CONTROL SPECIALIST, CROP PEST CONTROL SPECIALIST-C Referring Provider Active S tart: October 27, 2024 Team Status: Inactive Member Role/Relationship Status Dates Dr. Jose Echeverria MD Primary Care Provider Active Start: November 18, 2024 End: November 18, 2024 Dr. Jose Echeverria MD Referring Provider Active Start: November 18, 2024 End: November 18, 2024 Lucy Ashley NP, CROP PEST CONTROL SPECIALIST-C Attending Provider Active Start: November 18, 2024 End: November 18, 2024 Team Status: Inactive Member Role/Relationship Status Dates Dr. Jose Echeverria MD Primary Care Provider Active Start: December 17, 2024 End: December 17, 2024 Dr. Jose Echeverria MD Referring Provider Active Start: December 17, 2024 End: December 17, 2024 SORAYA Julien Attending Provider Active Start: December 17, 2024 End: December 17, 2024 Team Status: Inactive Member Role/Relationship Status Dates Dr. Jose Echeverria MD Primary Care Provider Active Start: October 14, 2024 End: October 14, 2024 Dr. Jose Echeverria MD Referring Provider Active Start: October 14, 2024 End: October 14, 2024 SORAYA Julien Attending Provider Active Start: October 14, 2024 End: October 14, 2024 Team Status: Inactive Member Role/Relationship Status Dates Dr. Jose Echeverria MD Primary Care Provider Active Start: October 17, 2024 End: October 17, 2024 Dr. Jose Echeverria MD Attending Provider Active Start: October 17, 2024 End: October 17, 2024 Dr. Jose Echeverria MD Referring Provider Active Start: October 17, 2024 End: October 17, 2024 Team Status: Inactive Member Role/Relationship Status Dates Dr. Jose Echeverria MD Primary Care Provider Active Start: October 27, 2024 End: October 27, 2024 Ke Newman CROP PEST CONTROL SPECIALIST, CROP PEST CONTROL SPECIALIST-C Attending Provider Active S tart: October 27, 2024 End: October 27, 2024 Ke Newman CROP PEST CONTROL SPECIALIST, CROP PEST CONTROL SPECIALIST-C Referring Provider Active S tart: October 27, 2024 End: October 27, 2024 Team Status: Active Member Role/Relationship Status Dates Dr. Jose Echeverria MD Primary Care Provider Active Start: October 27, 2024 Dr. Sienna James MD Attending Provider Active Start: October 27, 2024 Ke Newman CROP PEST CONTROL SPECIALIST, CROP PEST CONTROL SPECIALIST-C Referring Provider Active S tart: October 27, 2024 Team Status: Inactive Member Role/Relationship Status Dates Dr. Jose Echeverria MD Primary Care Provider Active Start: November 18, 2024 End: November 18, 2024 Dr. Jose Echeverria MD Referring Provider Active Start: November 18, 2024 End: November 18, 2024 Lucy Ashley NP, CROP PEST CONTROL SPECIALIST-C Attending Provider Active Start: November 18, 2024 End: November 18, 2024 Team Status: Inactive Member Role/Relationship Status Dates Dr. Jose Echeverria MD Primary Care Provider Active Start: December 17, 2024 End: December 17, 2024 Dr. Jose Echeverria MD Referring Provider Active Start: December 17, 2024 End: December 17, 2024 Loreta Salazar NP-C Attending Provider Active Start: December 17, 2024 End: December 17, 2024 Team Status: Inactive Member Role/Relationship Status Dates Dr. Jose Echeverria MD Primary Care Provider Active Start: January 22, 2025 End: January 22, 2025 Dr. Jose Echeverria MD Referring Provider Active Start: January 22, 2025 End: January 22, 2025 Dr. Monique Evans MD Attending Provider Active Start: January 22, 2025 End: January 22, 2025 Goals (unrecognized section and content) Goals may be documented in a n alternate sectionGoals may be documented in an alternate sectionGoals may be documented in an alternate sectionGoals may be documented in an alternate sectionGoals may be documented in an alternate sectionGoals may be documented in an alternate sectionGoals may be documented in an alternate sectionGoals may be documented in an alternate sectionGoals may be documented in an alternate sectionGoals may be documented in an alternate sectionGoals may be documented in an alternate sectionGoals may be documented in an alternate section No Information AvailableGoals may be documented in an alternate sectionGoals may be documented in an alternate section INFORMATION SOURCE (unrecogn ized section and content) DATE CREATED AUTHOR 02/25/2024 [facility] DATE CREATED AUTHOR AUTHOR'S DEACON ORTIZ 03/20/2025 [facility] FOR RECORDS PERTAINING TO PATIENTS WHO ARE OR HAVE BEEN ENROLLED IN A CHEMICAL DEPENDENCY/SUBSTANCEABUSE PROGRAM, SOME INFORMATION MAY BE OMITTED. This clinical summary was aggregated from multiple sources. Caution should be exercised in using it in the provision of clinical care. This summary normalizes information from multiple sources, and as a consequence, information in this document may materially change the coding, format and clinical context of patient data. In addition, data may be omitted in some cases. CLINICAL DECISIONS SHOULD BE BASED ON THE PRIMARY CLINICAL RECORDS. [employer] provides no warranty or guarantee of the accuracy or completeness of information in this document.
== END | disposition home or self-care (01) ==
LOC: OPBI 07:12
PROVIDERS: PCP Family Medicine; Referring Provider Family Medicine; Visit Provider Family Medicine
DX: Z12.31 Encounter for screening mammogram for malignant neoplasm of breast (principal)
CPT/HCPCS: 77063; 77067

== ENCOUNTER → 2025-04-22 | Outpatient (CLI) | payer OTHER, SELFPAY ==
[2025-04-22 12:23] LABS: Hematocrit 44.5 % (37-47); Hemoglobin 14.2 g/dL (12.0-15.0); Immature Granulocytes Count 0.020 X10^3/uL (0.0-0.0); Mean Corp Hgb Conc 31.9 g/dL (32-36); Mean Corpuscular Volume 91.8 fL (81-99); Mean Platelet Vol. 10.5 fl (6.2-12.0); NRBC Flagged by Analyzer 0 % (0-5); Platelet Count 346 K/mm3 (150-450); RBC Distribution Width CV 12.4 % (11.6-14.6); RBC Distribution Width SD 41.4 fl (35.1-43.9); Red Blood Count 4.85 M/mm3 (4.2-5.4); White Blood Count 7.2 K/mm3 (4.4-11.0)
[2025-04-22 13:11] LABS: AST(SGOT) 20 U/L (<=31); Alanine Aminotransfer ALT/SGPT 23 U/L (<=34); Albumin, Serum 4.2 g/dL (3.5-5.0); Alkaline Phosphatase 95 U/L (35-104); Anion Gap 11 (5-15); BUN 12 mg/dL (4-19); BUN/Creat Ratio 17.2 RATIO (10-20); Calcium,Total 9.4 mg/dL (7.6-11.0); Carbon Dioxide 23.3 mmol/L (21.0-32.0); Chloride 104 mmol/L (98-108); Globulin 3.0 g/dL (2.2-4.2); Glucose 88 mg/dL (70-99); Potassium 4.2 mmol/L (3.3-5.1)
== END | disposition home or self-care (01) ==
PROVIDERS: PCP Family Medicine; Visit Provider Nurse Practitioner Family
DX: R53.83 Other fatigue (principal)
CPT/HCPCS: 36415; 80053; 85025